=== PATIENT | male | born 1960 | race Caucasian/White ===

== ENCOUNTER 2019-05-11 18:12 | Inpatient (IN) ==
--- OUTSIDE RECORDS SUMMARY | 2019-05-11 20:03 | External Medical Summary | Continuity of Care Document ---
:1960 Author Name Armin Bowen, Provider Address Unavailable Unavailable , Care Team Providers Name Role Phone Amanda San M.D. Unavailable [email or web address] Unavailable Unavailable Problems Active medical history not documented Allergies and Adverse Reactions Allergy history not documented Medications Medications not documented Procedures Procedures not documented Immunizations Immunizations not documented Plan of Treatment Planned Observations Planned Goals not documented Results No Known Results Results not documented Encounters Appointment; Amanda San M.D. 29-Oct-2010 14:00 Encounter Diagnosis: Problem not documented
[2019-05-11] MEDS ORDERED: PROPOFOL IV EMULSION 10 MG/ML 100 ML VIAL IV ONE (20:07)
[2019-05-11] MEDS ORDERED: NOREPINEPHRINE BIT INJ 8 MG in DEXTROSE 5% 500 ML IV SCH (20:15)
[2019-05-11] MEDS ORDERED: ICU PROTOCOL FOR HYPERGLYCEMIA PRN (20:25)
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
[2019-05-11 21:20] LABS: Hematocrit (blood only) 28.5 % (42-52); Hemoglobin 8.6 g/dL (14.0-18.0); Mean Corpuscular Volume 75.8 fL (80-100); Mean Platelet Volume 10.6 fL (7.4-10.4); Platelet Count 250 K/uL (130-400); RDW Coefficient of Variation 18.3 % (11.5-14.5); RDW Standard Deviation 50.8 fL (36.4-46.3); Red Blood Count 3.76 M/uL (4.7-6.1); White Blood Count 28.06 K/uL (4.8-10.8)
--- NOTE | 2019-05-11 21:24 | XRay Report ---
XR chest 1V portable CLINICAL HISTORY: Respiratory failure COMPARISON STUDY: No previous studies for comparison. FINDINGS: The heart is enlarged with a globular silhouette. A pericardial effusion cannot be excluded . There is a nasogastric tube which passes into the stomach. There is an endotracheal to 59 mm above the lynne. There is radiographic evidence of mild pulmonary vascular congestion. There are small ple ural effusions. There is basilar atelectasis/consolidation.[There is nonspecific irregularity of the distal left clavicle, likely postsurgical or posttraumatic IMPRESSION: 1. Enlarged cardiac silhouette with small bilateral pleural effusions 2. Bilateral lower lobe atelectasis/consolidation 3. Mild pulmonary vascular congestion 4. Endotracheal tube 59 mm above the lynne. Nasogastric tube which passes into the stomach Electronically signed by: Paxton Aguila M.D. 05/11/2019 9:23 PM
[2019-05-11 21:31] LABS: INR 1.4 (0.9-1.1); Partial Thromboplastin Ratio 1.1; Partial Thromboplastin Time 28.8 Seconds (21.0-31.0); Prothrombin Time 14.3 Seconds (9.0-12.0)
[2019-05-11 21:37] LABS: Alanine Aminotransferase 21 U/L (12-78); Albumin Level 2.5 gm/dl (3.4-5.0); Aspartate Aminotransferase 31 U/L (15-37); BUN Creatinine Ratio 21.4 (10-20); Blood Urea Nitrogen 14 mg/dl (7-18); Carbon Dioxide 21 mmol/L (21-32); Chloride 107 mmol/L (98-107); Est GFR (African American) 126.8; Est GFR (Non-African American) 109.4; Glucose 101 mg/dl (70-99); Magnesium 1.8 mg/dl (1.8-2.4); Potassium 3.6 mmol/L (3.5-5.1); Sodium 139 mmol/L (136-145)
[2019-05-11 21:42] LABS: Albumin Globulin Ratio 0.7 (0.9-2); Alkaline Phosphatase 66 U/L (45-117); Bilirubin,Total 0.6 mg/dl (0.2-1); Creatine Kinase 98 U/L (39-308); Globulin 3.7 gm/dl (2.5-4.0); Phosphorus 3.5 mg/dl (2.5-4.9); Total Protein 6.2 gm/dl (6.4-8.2); Troponin I 0.039 ng/ml (0-0.045)
--- NOTE | 2019-05-11 22:03 | Procedure Note ---
Procedure Note Date of Service May 11, 2019 Procedure: Arterial Line Placement Attending: Dr. Cao APC: Rosalio Andrade PA-C Indication: Monitoring on Pressors Anesthesia: Lidocaine 1% Consent was signed and placed on the chart prior to procedure. Indication, risks, and benefits were explained at length. A time-out was completed verifying correct patient, procedure, site, positioning, and implant(s) or special equipment if applicable. Allens test was performed to ensure adequate perfusion. Patients RIGHT wrist was prepped and draped in the usual sterile fashion. Ultrasound guidance was used to aid needle placement. A 20g Arrow arterial line was introduced into the RIGHT Radial artery. Catheter was threaded, and the needle was removed with appropriate blood return. Good waveform was observed. The patient tolerated the procedure well. Confirmation of placement with ultrasound. Blood Loss: Minimal Complications: None Procedural Ultrasound Guidance: Procedure Date: 05/11/2019 Indication: Pressors, Frequent ABGs/Labs Attending: Dr. Cao APC: Rosalio Andrade PA-C Artery Identified: YES Line confirmed in Artery with ultrasound: YES Complications: NONE Patient tolerated procedure: WELL Coding CPT Codes Tubes, Drains, and Vasc Access - Tubes, Drains, and Vasc Access: Place Catheter In Artery ([id number])
[2019-05-11] MEDS ORDERED: PIPERACILLIN/TAZOBACTAM 4.5 GM in DEXTROSE 5% 100 ML IV ONE ×2 (22:13→23:30)
[2019-05-11] MEDS ORDERED: VANCOMYCIN CONSULT ACTIVE PRN (22:13)
[2019-05-11] MEDS ORDERED: ALBUT/IPRATROP 3MG/0.5MG NEB 3 ML VIAL NEB PRN (22:13)
[2019-05-11] MEDS ORDERED: PIPERACILL/TAZOBAC CONSULT ACTIVE PRN (22:13)
[2019-05-11] MEDS ORDERED: VANCOMYCIN HCL 1,000 MG in SODIUM CHLORIDE 0.9% 250 ML IV SCH (22:15)
[2019-05-11 22:21] LABS: Mean Corpuscular Hgb Conc 30.2 g/dL (32-36)
[2019-05-11] MEDS ORDERED: MULTI-VITAMIN INFUSION 10 ML, THIAMINE HCL 100 MG, FOLIC ACID 1 MG in SODIUM CHLORIDE 0... IV SCH (22:30)
[2019-05-11] MEDS ORDERED: VANCOMYCIN HCL 2,250 MG in SODIUM CHLORIDE 0.9% 500 ML IV ONE (22:30)
[2019-05-11 22:32] LABS: iSTAT Arterial Blood Gas HCO3 19 meg/L (19-24); iSTAT Arterial Blood Gas pCO2 35 mmHg (35-46); iSTAT Arterial Blood Gas pH 7.34 (7.35-7.45); iSTAT Carbon Dioxide 20 mEq/l (24-31); iSTAT FiO2 50 %; iSTAT Site Art Line
[2019-05-11 22:47] LABS: ALC (manual) 1.74 K/uL (1.2-3.4); Hypochromasia Present; Lymphocytes # (manual) 1.74 K/uL (1.2-3.4); Lymphocytes % (manual) 6.2 %; Metamyelocytes # (manual) 1.99 K/uL (0-0); Metamyelocytes % (manual) 7.1 %; Monocytes # (manual) 0.51 K/uL (0.11-0.59); Monocytes % (manual) 1.8 %; Neutrophils % (manual) 84.9 %; Polychromasia 1+
[2019-05-11 22:58] LABS: Appearance Urine Clear (Clear); Bacteria Urine Automated Negative (Negative); Bilirubin Urine Negative (Negative); Blood Urine 3+ (Negative); Color Urine Dark Yellow; Epithelial Cell Urine Auto >30 /lpf (0-5); Glucose Urine UA Negative (Negative); Ketones Urine Trace (Negative); Leukocyte Esterase Urine Trace (Negative); Nitrite Urine Negative (Negative); Protein Urine Trace (Negative); RBC Urine Automated >30 /hpf (0-4); Specific Gravity Urine 1.027 (1.000-1.030); Urobilinogen Urine Negative (Negative)
[2019-05-11] MEDS: THIAMINE HCL 100 MG in SYRINGE 9 ML IV SCH (23:26)
[2019-05-11] MEDS: methylPREDNISolone 60 MG in SYRINGE 0 ML IV SCH (23:26)
[2019-05-11] MEDS: NORMOSOL-R 1,000 ML IV SCH (23:27)
[2019-05-11] MEDS: fentaNYL citrate 100 MCG/2 ML VIAL IV PRN (23:28)
[2019-05-11] MEDS ORDERED: VANCOMYCIN HCL 2,000 MG in SODIUM CHLORIDE 0.9% 500 ML IV ONE (23:30)
[2019-05-11] MEDS: PROPOFOL 1,000 MG/100 ML VIAL IV PRN (23:33)
--- NOTE | 2019-05-11 23:34 | Procedure Note ---
Procedure Note Date of Service May 11, 2019 Procedure: Internal Jugular Central Line Placement Attending: Dr. Cao APC: Rosalio Andrade PA-C Indication: Central Drug Administration, Poor Venous Access, Multiple Lab Draws Necessary, etc. Anesthesia: Lidocaine 1% Consent was signed and placed on the chart prior to procedure. Indication, risks, and benefits were explained at length. A time-out was completed verifying correct patient, procedure, site, positioning, and implants(s) or special equipment if applicable. Patients RIGHT Neck was cleansed and draped in the typical sterile fashion using Chloraprep. The Internal Jugular Vein and Carotid Artery were identified using ultrasound. The superficial tissue was anesthetized using 3.0 mL of 1% lidocaine without epinephrine under direct visualization with the ultrasound. After adequate anesthetization was achieved, the Internal Jugular vein was cannulated under direct ultrasound guidance using an introducer needle on a syringe. Good venous blood return was maintained prior to removal of syringe from introducer needle. Using Seldinger Technique, a guide wire was advanced through the introducer needle without resistance. The introducer needle was removed and ultrasound images were obtained of the guide wire within the Internal Jugular Vein and saved to the patients medical record. A small incision was made in penetrating fashion at the guide wire insertion site utilizing an 11 blade scalpel. The dilator was advanced to the vessel without resistance. The dilator was exchanged for the triple lumen catheter which was advanced into the vessel without resistance. The guide wire was removed intact from the catheter without issue. Claves were placed on each catheter tip with confirmation of good blood flow from each lumen. Each port was easily flushed with sterile saline. The catheter was placed at 16 cm and sutured in place. BioPatch was applied to the catheter a nd a sterile Tegaderm dressing was applied over the catheter with careful attention to sterility. Patient tolerated procedure well. No immediate complications were met. Post procedure x-ray was completed, placement was appropriate and no pneumothorax was noted. Images obtained are saved for permanent record Procedural Ultrasound Guidance: Procedure Date: 05/11/2019 Indication: Pressors, Frequent Lab Draws, Poor IV Access Attending: Dr. Cao APC: Rosalio Andrade PA-C Artery AND Vein visualized: YES Compressible Vein: YES Guidewire or Short Catheter seen in vein prior to dilation: YES Line confirmed in Vein with ultrasound: YES Images obtained are saved for permanent record. Coding CPT Codes Tubes, Drains, and Vasc Access - Tubes, Drains, and Vasc Access: Insertion Of Non-tunneled Catheter Age 5 Yrs> ([id number]) Tubes, Drains, and Vasc Access - Tubes, Drains, and Vasc Access: Ultrasound Guidance For Vascular ([id number])
--- NOTE | 2019-05-11 23:47 | History & Physical Report ---
Date of Service May 11, 2019 Assessment & Plan (1) Admitted to intensive care unit: Patient is admitted to the intensive care unit after direct transfer from [facility] ED, where he was intubated and mechanically ventilated due to acute respiratory failure secondary to pneumonia both lower lobes and severe sepsis- We will do baseline studies: CBC with differential, chemistry profile, magnesium level, PT/INR/PTT, troponin, EKG, chest x-ray, ABG. Follow labs serially. Continue mechanical ventilation, with settings adjusted based on serial ABGs. Vancomycin IV and Zosyn IV per pharmacokinetic monitoring. Duonebs every 4 hours while awake and every 2 hours when necessary. Sputum Gram stain and culture. Solu-Medrol 60 mg IV every 6 hours. Consult correspondence specialist Dr. Cao Present on Admission?: Yes (2) Pneumonia of both lower lobes: See above Present on Admission?: Yes (3) Severe sepsis: See above Present on Admission?: Yes (4) CAD (coronary artery disease): CAD/H fibrillation/hypertension/placement last week of drug-eluting coronary stent in the mid LAD lesion- Records obtained from previous hospital. Consult cardiology. Present on Admission?: Yes (5) A-fib: See above. Present on Admission?: Yes (6) Status post insertion of drug eluting coronary artery stent: See above. Present on Admission?: Yes (7) Paraplegia: Continue supportive treatment. Present on Admission?: Yes (8) Lactic acidosis: Serial lactate levels Present on Admission?: Yes (9) Acute respiratory failure: As noted above. Present on Admission?: Yes History of Present Illness Chief Complaint: The patient was transferred from [facility] ED to [facility] ICU after requiring intubation and mechanical ventilation due to acute respiratory failure with hypoxia and hypercapnia. Primary Care Provider: Elver Saucedo The patient is a 58-year-old male with past medical history including paraplegia, history of CVA, atrial fibrillation, CAD, recent placement of drug- eluting stent into the LAD and recurrent UTI. He initially presented to [facility] ED and acute respiratory failure with hypoxia and hypercapnia, with intubated and mechanically ventilated, and then transferred to [facility] ICU for ongoing treatment. Prior to transfer he did receive IV vancomycin and IV Zosyn. Allergies Allergy/AdvReac Type Severity Reaction Status Date / Time No Known Allergies Allergy Unverified 05/11/19 22:09 Past Med/Surg History Social History Preferred Language: Welsh Communication Ability: Effective Communication Ability Comment: stutters after stroke [employer]per Required: No Beliefs That Will Affect Care: None Current Living Situation: Alone Current Living Situation Comment: [facility] Other Information That Helps Us Care for You: Yes (health aides total 5 hrs/day - 5 days/week) Feels Safe at Home: Yes Safety Concerns: Feels Safe At This Time Smoking Status: Never smoker Hx Alcohol Use: Yes Alcohol type: beer Hx Substance Use: Yes substance use type: marijuana Last Used Substance Other:: unknown by family Review of Systems Review of Systems: Unable to be performed due to sedated and intubated state. Physical Exam Physical Exam: The patient is sedated, intubated and mechanically ventilated, normocephalic and atraumatic. HEENT--PERRL, mucous membranes and oropharynx dry. Neck-- No JVD. No bruits. Thyroid normal, trachea midline, no adenopathy. Heart--normal S1 and S2. No murmurs, rubs or gallops. Lungs--coarse breath sounds bilaterally. Abdomen--normal bowel sounds and soft. Nontender. Nondistended. Extremities--no cyanosis or clubbing. No edema. There are good distal pulses b/l. Dermatologic--normal skin turgor, normal color, no abnormal lymph nodes, no rash. Neurologic--cranial nerves II through XII grossly intact. Rheumatologic--limited exam due to sedation and intubation Psychiatric--sedated and intubated Results & Data Vital Signs (Past 12 Hours) Vital Signs Temp Pulse Pulse Resp BP BP Pulse Ox 05/11/19 22:11 92 H 16 95 05/11/19 21:15 85 83/49 L 98 05/11/19 21:11 67 05/11/19 21:09 99.9 F H 83 16 84/49 L 95 05/11/19 21:01 82 98 05/11/19 21:00 82 81/50 L 98 05/11/19 20:48 91 H 16 94 05/11/19 20:46 83 97 05/11/19 20:45 83 80/50 L 97 05/11/19 20:31 88 95 05/11/19 20:30 88 84/49 L 95 05/11/19 20:26 90 90/61 L 96 05/11/19 20:15 93 H 96 05/11/19 20:05 90 90 05/11/19 20:03 86 19 94/50 L 90 Pulse Ox 05/11/19 22:11 05/11/19 21:15 05/11/19 21:11 05/11/19 21:09 05/11/19 21:01 05/11/19 21:00 05/11/19 20:48 05/11/19 20:46 05/11/19 20:45 05/11/19 20:31 98 05/11/19 20:30 05/11/19 20:26 05/11/19 20:15 05/11/19 20:05 05/11/19 20:03 Laboratory Results Laboratory Results WBC 23.88 K/uL (4.8-10.8) H 05/12/19 04:01 RBC 3.86 M/uL (4.7-6.1) L 05/12/19 04:01 Hgb 8.9 g/dL (14.0-18.0) L 05/12/19 04:01 Hct 28.9 % (42-52) L 05/12/19 04:01 MCV 74.9 fL (80-100) L 05/12/19 04:01 MCH 23.1 pg (25-34) L 05/12/19 04:01 MCHC 30.8 g/dL (32-36) L 05/12/19 04:01 RDW Std Deviation 50.0 fL (36.4-46.3) H 05/12/19 04:01 RDW Coeff of Jennifer 18.3 % (11.5-14.5) H 05/12/19 04:01 Plt Count 196 K/uL (130-400) 05/12/19 04:01 MPV 10.5 fL (7.4-10.4) H 05/12/19 04:01 Neutrophils % (Manual) 84.9 % 05/11/19 21:08 Lymphocytes % (Manual) 6.2 % 05/11/19 21:08 Monocytes % (Manual) 1.8 % 05/11/19 21:08 Metamyelocytes % (Man) 7.1 % 05/11/19 21:08 Neutrophils # (Manual) 23.82 K/uL (1.4-6.5) H 05/11/19 21:08 Total Absolute Neuts 23.82 K/uL (1.4-6.5) H 05/11/19 21:08 Lymphocytes # (Manual) 1.74 K/uL (1.2-3.4) 05/11/19 21:08 Total Abs Lymphocytes 1.74 K/uL (1.2-3.4) 05/11/19 21:08 Monocytes # (Manual) 0.51 K/uL (0.11-0.59) 05/11/19 21:08 Metamyelocytes # (Man) 1.99 K/uL (0-0) H 05/11/19 21:08 Polychromasia 1+ 05/11/19 21:08 Hypochromasia Present 05/11/19 21:08 PT 14.8 Seconds (9.0-12.0) H 05/12/19 04:01 INR 1.5 (0.9-1.1) H 05/12/19 04:01 APTT 35.9 Seconds (21.0-31.0) H 05/12/19 04:01 PTT Ratio 1.3 05/12/19 04:01 Sample Site Art Line 05/11/19 22:17 POC pH 7.34 (7.35-7.45) L 05/11/19 22:17 POC pCO2 35 mmHg (35-46) 05/11/19 22:17 POC pO2 82 mmHg (80-95) 05/11/19 22:17 POC HCO3 19 sam/L (19-24) 05/11/19 22:17 POC Total CO2 20 mEq/l (24-31) L 05/11/19 22:17 POC Base Excess -6.0 sam/L (-9-1.8) 05/11/19 22:17 POC ABG O2 Sat 95.0 % (90-95) 05/11/19 22:17 Héctor Test NA 05/11/19 22:17 O2 Delivery Device Ventilator 05/11/19 22:17 POC O2 Rate 12 05/11/19 22:17 Minute Ventilation 9.5 05/11/19 22:17 POC FiO2 50 % 05/11/19 22:17 Tidal Volume 600 05/11/19 22:17 PEEP 5 05/11/19 22:17 Sodium 139 mmol/L (136-145) 05/11/19 21:08 Potassium 3.6 mmol/L (3.5-5.1) 05/11/19 21:08 Chloride 107 mmol/L (98-107) 05/11/19 21:08 Carbon Dioxide 21 mmol/L (21-32) 05/11/19 21:08 Anion Gap 11.0 (3-11) 05/11/19 21:08 BUN 14 mg/dl (7-18) 05/11/19 21:08 Creatinine 0.63 mg/dl (0.6-1.4) 05/11/19 21:08 Est Cr Clr Drug Dosing Not Reportable 05/11/19 21:08 Est GFR ( Amer) 126.8 05/11/19 21:08 Est GFR (Non-Af Amer) 109.4 05/11/19 21:08 BUN/Creatinine Ratio 21.4 (10-20) H 05/11/19 21:08 Glucose 101 mg/dl (70-99) H 05/11/19 21:08 POC Glucose 100 (70-99) H 05/12/19 01:28 Lactate 3.5 mmol/L (0.4-2.0) H* 05/11/19 21:23 Calcium 8.0 mg/dl (8.5-10.1) L 05/11/19 21:08 Ionized Calcium 1.07 mmol/L (1.12-1.32) L 05/11/19 21:08 Phosphorus 3.5 mg/dl (2.5-4.9) 05/11/19 21:08 Magnesium 1.8 mg/dl (1.8-2.4) 05/11/19 21:08 Total Bilirubin 0.6 mg/dl (0.2-1) 05/11/19 21:08 AST 31 U/L (15-37) 05/11/19 21:08 ALT 21 U/L (12-78) 05/11/19 21:08 Alkaline Phosphatase 66 U/L (45-117) 05/11/19 21:08 Total Creatine Kinase 98 U/L (39-308) 05/11/19 21:08 Troponin I Cancelled 05/12/19 04:01 Total Protein 6.2 gm/dl (6.4-8.2) L 05/11/19 21:08 Albumin 2.5 gm/dl (3.4-5.0) L 05/11/19 21:08 Globulin 3.7 gm/dl (2.5-4.0) 05/11/19 21:08 Albumin/Globulin Ratio 0.7 (0.9-2) L 05/11/19 21:08 Folate 11.32 ng/ml (>5.38) 05/11/19 22:34 Procalcitonin 24.73 ng/ml (0-0.5) H 05/11/19 22:34 Random Cortisol 30.09 mcg/dl 05/11/19 21:08 Urine Color Dark Yellow 05/11/19 22:30 Urine Appearance Clear (Clear) 05/11/19 22:30 Urine pH 5.0 (4.5-7.5) 05/11/19 22:30 Ur Specific [place] 1.027 (1.000-1.030) 05/11/19 22:30 Urine Protein Trace (Negative) H 05/11/19 22:30 Urine Glucose (UA) Negative (Negative) 05/11/19 22:30 Urine Ketones Trace (Negative) H 05/11/19 22:30 Urine Blood 3+ (Negative) H 05/11/19 22:30 Urine Nitrite Negative (Negative) 05/11/19 22:30 Urine Bilirubin Negative (Negative) 05/11/19 22:30 Urine Urobilinogen Negative (Negative) 05/11/19 22:30 Ur Leukocyte Esterase Trace (Negative) H 05/11/19 22:30 Urine WBC (Auto) 10-30 /hpf (0-5) H 05/11/19 22:30 Urine RBC (Auto) >30 /hpf (0-4) H 05/11/19 22:30 U Hyaline Cast (Auto) 5-10 /lpf (0-5) H 05/11/19 22:30 U Epithel Cells (Auto) >30 /lpf (0-5) H 05/11/19 22:30 Urine Bacteria (Auto) Negative (Negative) 05/11/19 22:30 Ur Renal Epithelial Cell Not Reportable 05/11/19 22:30 Nasal Screen MRSA (PCR) Positive (Negative) A 05/11/19 20:15 Diagnostic Findings [facility] Patient: MANUEL MCKEON (Male) Age: 58 MR #: [id number] Status: IP Date: 05/12/19 02:01 Slices: 40 History: f/u from CT for ? cholecystitis Priors: Tech: Dharmesh Tyrone @ [phone] Exams: US ABDOMEN LIMITED Accession Numbers: [id number] Preliminary Findings Only See Final Report For Complete Findings US ABDOMEN LIMITED: The gallbladder is distended containing multiple gallstones with pericholecystic fluid which is concerning for acute cholecystitis in the correct clinical setting. No biliary dilatation. Radiologist: Keyana Wallace MD Study ready at 02:06 and initial results transmitted at 02:42 *This report constitutes a preliminary interpretation only. Non-acute findings felt to be unrelated to the clinical presentation may not be discussed in this report. The study will be interpreted and a final report will be generated by the local Radiologist the following shift. To reach the hospital radiology department call [phone]. If a discrepancy is found between the preliminary and final interpretations of this study, please notify us via our Client Portal at [email or web address], [email or web address]. You can also fax this report with a description of the discrepancy, or include the final report, to our daytime fax number [phone]. If faxing, please indicate the severity of discrepancy using one of the following categories: [ ] 1 - Agree/Informational [ ] 2 - Unlikely to Affect Management [ ] 3 - Possible Eventual Change of Management [ ] 4 - Probable Immediate Change of Management For all other patient related information, please fax us at [phone]. [facility] Patient: MANUEL MCKEON (Male) Age: 58 MR #: [id number] Status: ER Date: 05/12/19 00:16 Slices: 1322 History: sob, r/o pe, abd pain, sepsis, best images, pt intubated Priors: Tech: Amanda Valle @ [phone] Exams: CTA CHEST, CT ABDOMEN & PELVIS With Contrast Contrast: IV Amt: 120 cc's Accession Numbers: [id number], [id number] Preliminary Findings Only See Final Report For Complete Findings CTA CHEST: The endotracheal tube is in satisfactory position above the lynne. No aortic dissection or aneurysm. Cardiomegaly. Diffuse coronary artery calcifications. Enlargement of the pulmonary arteries which is probably related to pulmonary arterial hypertension. No evidence of pulmonary emboli. Incidental note is made of anomalous pulmonary venous return which drains the left upper lobe into the left brachiocephalic vein. Small bilateral pleural effusions. Large consolidations in the bilateral lower lobes could represent pneumonia or compressive atelectasis. Old fractures of the bilateral clavicles and bilateral ribs. Old compression fracture of T11. CT ABDOMEN & PELVIS With Contrast: The enteric tube is in the distal stomach. The gallbladder is distended with multiple gallstones with mild gallbladder wall thickening and adjacent edema which could represent acute cholecystitis. Recommend correlation with ultrasound or HIDA. Tip of Pinedo catheter is in the bladder. Circumferential wall thickening of the bladder could represent cystitis. Correlation urinalysis. Gas in the bladder is probably due to Pinedo placement. Rectal tube is present. Moderate stool throughout the colon. No bowel wall thickening or obstruction. Normal appendix. Small fat-containing left inguinal hernia. Moderate atherosclerosis. Radiologist: Keyana Wallace MD Study ready at 00:25 and initial results transmitted at 00:57 Results also transmitted to [facility] ICU @ [phone] (Fax) *This report constitutes a preliminary interpretation only. Non-acute findings felt to be unrelated to the clinical presentation may not be discussed in this report. The study will be interpreted and a final report will be generated by the local Radiologist the following shift. To reach the hospital radiology department call [phone]. If a discrepancy is found between the preliminary and final interpretations of this study, please notify us via our Client Portal at [email or web address], [email or web address]. You can also fax this report with a description of the discrepancy, or include the final report, to our daytime fax number [phone]. If faxing, please indicate the severity of discrepancy using one of the following categories: [ ] 1 - Agree/Informational [ ] 2 - Unlikely to Affect Management [ ] 3 - Possible Eventual Change of Management [ ] 4 - Probable Immediate Change of Management For all other patient related information, please fax us at [phone]. Code Status & VTE Plan Code Status Full code VTE Prophylaxis Plan VTE Prophylaxis will be ordered: Yes Critical Care Time Critical Care Time: Yes Total Critical Care Time: 45 Total critical care time was 45 minutes PG Care Time/CCT Total # of Minutes Spent Total Time Spent with Patient: Total time spent is greater than 50% in coordination of care (as documented) at patient's floor/unit and/or counseling patient: Critical Care Time: Yes Total Critical Care Time: 45
[2019-05-12] MEDS ORDERED: OPTIRAY 320 125ml IV PRN (00:19)
[2019-05-12] MEDS: FAMOTIDINE 20 MG in SYRINGE 3 ML IV SCH ×2 (01:28→12:56)
[2019-05-12] MEDS: ACETAMINOPHEN 1,000 MG/100 ML VIAL IV PRN (01:28)
[2019-05-12] MEDS ORDERED: SENNA 8.6 MG TAB PO PRN (02:01)
[2019-05-12] MEDS ORDERED: PIPERACILLIN/TAZOBACTAM 3.375 GM in DEXTROSE 5% 100 ML IV SCH (04:00)
[2019-05-12 04:16] LABS: Hematocrit (blood only) 28.9 % (42-52); Hemoglobin 8.9 g/dL (14.0-18.0); Mean Corpuscular Hgb Conc 30.8 g/dL (32-36); Mean Corpuscular Volume 74.9 fL (80-100); Mean Platelet Volume 10.5 fL (7.4-10.4); Platelet Count 196 K/uL (130-400); RDW Coefficient of Variation 18.3 % (11.5-14.5); Red Blood Count 3.86 M/uL (4.7-6.1); White Blood Count 23.88 K/uL (4.8-10.8)
[2019-05-12 04:26] LABS: INR 1.5 (0.9-1.1); Partial Thromboplastin Ratio 1.3; Partial Thromboplastin Time 35.9 Seconds (21.0-31.0); Prothrombin Time 14.8 Seconds (9.0-12.0)
[2019-05-12 04:35] LABS: Albumin Level 2.4 gm/dl (3.4-5.0); Calcium 7.6 mg/dl (8.5-10.1); Creatinine Clr Calc Pharmacy 223.4 ml/min; Est GFR (African American) 148.3; Potassium 3.7 mmol/L (3.5-5.1)
[2019-05-12] MEDS: PROPOFOL 1,000 MG/100 ML VIAL IV PRN ×5 (04:45→22:44)
[2019-05-12 04:47] LABS: Bilirubin Direct 0.3 mg/dl (0-0.2); Bilirubin,Total 0.6 mg/dl (0.2-1); Phosphorus 2.7 mg/dl (2.5-4.9); Troponin I 0.037 ng/ml (0-0.045)
[2019-05-12 04:49] LABS: Anisocytosis Present; Basophils # (auto) 0.04 K/uL (0-0.2); Basophils % (auto) 0.2 %; Dohle Bodies 1+; Eosinophils # (auto) 0.01 K/uL (0-0.5); Hypochromasia Present; Immature Granulocytes % (auto) 5.9 %; Lymphocytes # (auto) 0.77 K/uL (1.2-3.4); Lymphocytes % (auto) 3.2 %; Monocytes # (auto) 1.36 K/uL (0.11-0.59); Monocytes % (auto) 5.7 %; Polychromasia 1+; Toxic Vacuolation 1+
[2019-05-12 04:52] LABS: iSTAT Arterial Blood Gas HCO3 21 meg/L (19-24); iSTAT Arterial Blood Gas pCO2 41 mmHg (35-46); iSTAT Arterial Blood Gas pH 7.32 (7.35-7.45); iSTAT Carbon Dioxide 22 mEq/l (24-31); iSTAT FiO2 50 %; iSTAT Site Art Line
[2019-05-12] MEDS ORDERED: CALCIUM GLUCONATE 10% 1,000 MG in SODIUM CHLORIDE 0.9% 50 ML IV STA (05:01)
[2019-05-12] MEDS: methylPREDNISolone 60 MG in SYRINGE 0 ML IV SCH (05:34)
[2019-05-12] MEDS: NOREPINEPHRINE BIT INJ 8 MG in DEXTROSE 5% 500 ML IV PRN ×2 (06:17→10:27)
--- NOTE | 2019-05-12 07:06 | XRay Report ---
SINGLE VIEW CHEST CLINICAL HISTORY: Status post central venous catheter placement. FINDINGS: An AP, portable, upright chest radiograph is compared to study performed earlier the same d ay 05/11/2019. The examination is significantly degraded by portable technique and patient rotation. E ndotracheal and enteric tubes are unchanged in position. A right internal jugular central venous cath eter has been placed. The tip of the catheter projects over the SVC. The heart is enlarged. There is pulmonary vascular congestion. There are layering pleural effusions with bibasilar consolidation. No pneumothorax is seen. The skeletal structures are osteopenic. There are healed bilateral rib fracture s. IMPRESSION: 1. A right internal jugular central venous catheter has been placed as above. No pneumothorax is iden tified post procedure. 2. The remaining lines and tubes are unchanged in position. 3. Cardiomegaly with evidence of congestive failure. 4. Small pleural effusions with bibasilar consolidation. Electronically signed by: David Olivas M.D. 05/12/2019 7:05 AM
[2019-05-12] MEDS ORDERED: FERROUS SULFATE 325 MG/7.4 ML UDP PO SCH (08:00)
[2019-05-12] MEDS ORDERED: FERROUS SULFATE 325 MG TAB PO SCH (08:00)
--- NOTE | 2019-05-12 08:22 | CT Scan Report ---
CT ANGIOGRAM OF THE CHEST; CT SCAN OF THE ABDOMEN AND PELVIS WITH IV CONTRAST CLINICAL HISTORY: Sepsis. Generalized abdominal pain. COMPARISON STUDY: Chest x-ray dated 05/11/2019. TECHNIQUE: Following the IV administration of 120 of Optiray 320, CT angiogram of the chest is perfor med from the upper abdomen to the thoracic inlet utilizing the pulmonary embolus protocol. Images are reviewed in the axial, sagittal, coronal planes. 3-D MIPS images are created and assessed. Subsequen tly, CT scan of the abdomen and pelvis was performed from the lung bases to the proximal femora. Imag es are reviewed in the axial, sagittal, and coronal planes. IV contrast was administered without comp lication. A dose lowering technique was utilized adhering to the principles of ALARA. The examination is compromised by motion artifact, as well as by streak artifact from the arms which could not be el evated above the chest or abdomen. CT DOSE: 2380.51 mGy.cm FINDINGS: CHEST: Thyroid: Imaged portions of the thyroid gland are normal in size and attenuation. Thoracic aorta: The thoracic aorta is normal in caliber and demonstrates standard 3-vessel arch anato my. No dissection is seen. Pulmonary vasculature: The pulmonary trunk is dilated, measuring 4.3 cm in diameter. This suggests pu lmonary artery hypertension. There are no filling defects identified in the main, lobar, or segmental pulmonary arteries to indicate pulmonary embolus. There is partial anomalous pulmonary venous return . The left upper lobe branch drains into the left innominate vein. Heart: A right internal jugular central venous catheter is in place. The heart is enlarged and withou t pericardial effusion. The coronary arteries are densely calcified. Lungs and pleural spaces: Evaluation of the lung parenchyma is degraded by motion artifact. An endotr acheal tube terminates above the lynne. Secretions are noted within the distal trachea and the ro tem bronchi. There are small pleural effusions with dense bibasilar airspace consolidation. Partially loculated fluid tracks towards the right apex. Pleural calcifications are noted at the right lung ba se. Mediastinum: There is no mediastinal lymphadenopathy. Kalee: Prominent hilar nodes measure up to 9 mm in short axis. Axillae: There is no axillary lymphadenopathy. Bony thorax: The skeletal structures are osteopenic. There are healed bilateral rib fractures. There are age indeterminant compression deformities of T3, T4, T5, T6, T7, T8, and T11. There is chronic po sttraumatic deformity of both clavicles. Advanced degenerative change is seen in the shoulders. No ly tic or blastic lesions are identified. ABDOMEN AND PELVIS: Liver: The contrast-enhanced liver is enlarged, measuring 23.6 cm in length. The liver is otherwise n ormal in contour and attenuation. There is no intrahepatic or ductal dilatation. The hepatic veins an d portal veins are patent. Gallbladder: The gallbladder is distended and filled with numerous gallstones. There is mild pericho lecystic fluid. Spleen: The spleen is top normal in size and normal in attenuation. There are small calcified splenic granulomas. Pancreas: Mildly atrophic and grossly unremarkable. Adrenal glands: Adrenal glands appear hyperemic. Kidneys: The contrast enhanced kidneys are normal in size and without hydronephrosis. The kidneys enh ance symmetrically. Abdominal vasculature: The abdominal aorta is normal in course and caliber noting moderate to advance d atherosclerotic calcification. Stomach and bowel: An enteric tube terminates in the distal stomach. There is rectosigmoid fecal impa ction and moderate constipation. No bowel obstruction is seen. There is laxity of the ventral abdomin al wall with protrusion of abdominal contents. The appendix is well-visualized and normal. A rectal temperature probe is in place. Peritoneum: There is no intraperitoneal free air or abdominal ascites. There is asymmetric atrophy of the right rectus musculature. Lymphadenopathy: None. Pelvic viscera: The bladder wall is markedly thickened and heterogeneous. Intraluminal gas is noted. A Pinedo catheter is in place. A large right inguinal hernia contains a segment of the bladder. There is a smaller fat-containing inguinal hernia on the left. The prostate is normal as imaged. Skeletal structures: The skeletal structures are osteopenic. No lytic or blastic lesions are seen. Th ere is chronic posttraumatic deformity of the left acetabulum. An electronic device is present within the left anterior abdominal wall. An intrathecal catheter enters the central canal in the lumbar reg ion. IMPRESSION: 1. Streak and motion compromised examination. 2. There is no evidence of pulmonary embolus in the main, lobar, or segmental pulmonary arteries. 3. There are small pleural effusions with dense bibasilar consolidation. Correlate clinically for joshua dence of pneumonia/aspiration pneumonitis. Radiographic follow-up to resolution is recommended. 4. Marked cardiomegaly with evidence of pulmonary artery hypertension. 5. Pleural calcification at the right lung base is likely related to remote trauma given the presence of overlying rib fractures. Clinical correlation will be required. 6. Distended gallbladder with cholelithiasis and pedicles cystic fluid. Cholecystitis is not excluded . Consider ultrasound and/or nuclear hepatobiliary scan for further assessment. 7. The bladder wall is markedly thickened and heterogeneous. There is intraluminal gas, and a Pinedo c atheter in place. Correlate clinically and urinalysis for evidence of cystitis. The bladder wall thic kening may be chronic and related to a neurogenic bladder. Bladder neoplasm would be impossible to ex clude. Nonemergent follow-up with urology is recommended. 8. There are right larger than left inguinal hernias. The right inguinal hernia contains a large segm ent of the bladder. 9. There is rectosigmoid fecal impaction and moderate constipation. No bowel obstruction is seen. 10. Hepatomegaly. 11. There are numerous healed fractures involving bilateral ribs, both clavicles, and the left acetab ulum. There are numerous and age indeterminant thoracic compression deformities which are also likely chronic. 12. Numerous lines and tubes as detailed above. 13. There is partial anomalous pulmonary venous return. The left upper lobe pulmonary vein drains int o the left innominate vein. 14. Additional findings as above. Electronically signed by: David Olivas M.D. 05/12/2019 8:19 AM
[2019-05-12] MEDS ORDERED: Nursing to Pharmacy Communication ONE (08:52)
[2019-05-12] MEDS ORDERED: PANTOprazole 40 MG TAB PO SCH (09:00)
[2019-05-12] MEDS ORDERED: GABAPENTIN 800 MG TAB PO SCH (09:00)
[2019-05-12] MEDS ORDERED: dilTIAZem ER 120 MG CAPCR PO SCH (09:00)
[2019-05-12] MEDS ORDERED: ASPIRIN 81 MG CHEW PO SCH (09:00)
[2019-05-12] MEDS ORDERED: ASCORBIC ACID 500 MG TAB PO SCH (09:00)
[2019-05-12] MEDS ORDERED: ESCITALOPRAM OXALATE 20 MG TAB PO SCH (09:00)
[2019-05-12] MEDS ORDERED: ASPIRIN 81 MG ECTAB PO SCH (09:00)
[2019-05-12] MEDS ORDERED: TICAGRELOR 90 MG TAB PO SCH (09:00)
--- NOTE | 2019-05-12 09:07 | Ultrasound Report ---
ULTRASOUND RIGHT UPPER QUADRANT ABDOMEN CLINICAL HISTORY: Cholelithiasis and abnormal gallbladder seen by CT. COMPARISON STUDY: Abdominal CT performed the same day 05/12/2019. TECHNIQUE: Real-time, grayscale, and color flow sonography of the right upper quadrant of the abdomen was performed. Images are reviewed in the transverse and longitudinal planes. FINDINGS: Liver: The liver is enlarged and demonstrates heterogeneously increased echotexture suggesting hepati c steatosis. There is no intrahepatic biliary ductal dilatation. The main portal vein is patent. Gallbladder: The gallbladder is distended and filled with numerous shadowing calcified gallstones. Pe richolecystic fluid is noted. A sonographic Brunner's sign could not be assessed. There is no gallblad rosetta wall thickening. The common bile duct measures up to 0.4 cm in diameter. Pancreas: Visualized portions of the pancreatic head and body are normal in appearance. The splenic v ein is patent. Right kidney: Survey images of the right kidney demonstrate normal size and echotexture. There is no hydronephrosis. Ascites: There is trace perihepatic ascites. IMPRESSION: 1. The gallbladder is distended and filled with numerous shadowing gallstones. There is no gallbladde r wall thickening. Pericholecystic fluid is observed. Findings are equivocal for acute cholecystitis which is not excluded. Consider nuclear hepatobiliary scan for further assessment and to assess paten cy of the cystic duct. 2. There is no intra or extrahepatic biliary ductal dilatation. 3. There is trace perihepatic ascites. 4. Hepatomegaly and hepatic steatosis. Electronically signed by: David Olivas M.D. 05/12/2019 9:06 AM
[2019-05-12] MEDS ORDERED: SENNA 8.8 MG/5 ML UDP NG PRN (09:28)
[2019-05-12] MEDS ORDERED: PNEUMOCOCCAL POLYSACCHARIDES 25 MCG/0.5 ML VIAL/SYR IM ONE (10:00)
[2019-05-12] MEDS ORDERED: PNEUMOCOCCAL ADMINISTRATION CHARGE ONE (10:00)
--- NOTE | 2019-05-12 10:14 | XRay Report ---
SINGLE VIEW CHEST CLINICAL HISTORY: Respiratory failure. FINDINGS: An AP, portable, upright chest radiograph is compared to study dated 05/11/2019 and correlat ed with chest CT performed the same day 05/12/2019. The examination is significantly degraded by aneesh ble technique and patient rotation. An endotracheal tube, an enteric tube, and a right internal jugul ar central venous catheter are unchanged in position. The heart is enlarged. There is pulmonary vascu lar congestion. There are layering pleural effusions with bibasilar consolidation. No pneumothorax is seen. The skeletal structures are osteopenic. There are healed bilateral rib fractures. IMPRESSION: 1. Stable lines and tubes. 2. Cardiomegaly with pulmonary vascular congestion. This appears modestly increased from yesterday. 3. Small pleural effusions with bibasilar consolidation, unchanged from previous. Electronically signed by: David Olivas M.D. 05/12/2019 10:13 AM
[2019-05-12] MEDS: ASPIRIN 81 MG CHEW NG SCH (10:26)
[2019-05-12] MEDS: FOLIC ACID 1 MG in SYRINGE 9.8 ML IV SCH (10:26)
[2019-05-12] MEDS: ASCORBIC ACID 500 MG TAB NG SCH ×2 (10:26→20:59)
[2019-05-12] MEDS: FERROUS SULFATE 325 MG/7.4 ML UDP NG SCH ×2 (10:26→16:55)
[2019-05-12] MEDS: VANCOMYCIN HCL 1,250 MG in SODIUM CHLORIDE 0.9% 250 ML IV SCH ×3 (10:27→23:41)
[2019-05-12] MEDS: NORMOSOL-R 1,000 ML IV SCH ×3 (10:27→23:41)
[2019-05-12] MEDS: HEPARIN SOD 5,000 UNIT/0.5 ML VIAL SQ SCH ×2 (10:27→21:00)
[2019-05-12] MEDS: GABAPENTIN 250 MG/5 ML 470 ML BTL PO SCH ×3 (10:27→20:57)
[2019-05-12] MEDS: THIAMINE HCL 100 MG in SYRINGE 9 ML IV SCH (10:27)
[2019-05-12] MEDS: TICAGRELOR 90 MG TAB PO SCH ×2 (10:28→21:14)
--- NOTE | 2019-05-12 12:13 | Family Medicine Progress Note ---
Date of Service May 12, 2019 Assessment & Plan (1) Severe sepsis: Admitted to the ICU as a direct transfer from [facility], at [facility] he was intubated and mechanically ventilated due to acute hypoxic respiratory failure secondary to bilateral lower lobe pneumonia with severe sepsis. CT scan demonstrates cardiomegaly with evidence of pulmonary artery hypertension, distended gallbladder with cholelithiasis intraluminal gas of the bladder wall right and left inguinal hernias rectosigmoid fecal impaction hepatomegaly. Ultrasounds of the gallbladder demonstrated distention and filled with numerous gallstones negative for wall thickening pericholecystic fluid observed. #Bilateral lower lobe pneumonia Previously diagnosed at [facility] with associated severe sepsis.Chest x-ray demonstrates small pleural effusions with bibasilar consolidation ET tube in place. WBC is elevated to 23.88 today Procalcitonin 18.62.Cultures obtained and pending -Continue Vanco Zosyn management per ICU -Given Pneumovax -Methylprednisolone 40 mg IV every 12 hours -Wean sedation as tolerated -Follow-up cultures -Follow labs serially #Acute hypoxic respiratory failure See above #Admitted to the ICU ICU staff managing sepsis and stabilizing patient while intubated #CAD Patient had stent placed last week in the mid LAD -Continue dual antiplatelet therapy unless otherwise specified by ICU #A. fib Holding home diltiazem given ICU status FENa: N.p.o. Code Status: Full code DVT PPX: Heparin Dispo: ICU Supervising Physician Co-Signing Physician Notes I personally examined the patient and verified all rodriguez points of history and exam, discussed case, and agree with decision making with Dr Arriola no HPI or ROS obtainable. intubated, sedated. d/w ICU, input appreciated vitals noted, intubated, sedated, nad. breathing even and unlabored on vent. no asymmetry or focal neuro deficits at rest. skin no rashes no pallor or icterus sepsis/septic shock/acute respiratory failure requiring mechanical ventilation - due to pneumonia. continue current abx/supportive care. otherwise as above, as per ICU Subjective Patient intubated on ventilator, no acute concerns per nursing, patient did not wake during exam. Physical Exam Physical Exam: General: Patient sedated, intubated, and mechanically ventilated HEENT: Normocephalic atraumatic Neck: Negative JVD negative bruit trachea midline negative adenopathy Cardiac: Regular rate and rhythm I did not appreciate any murmurs rubs or gallops normal S1 normal S2 good capillary refill negative pedal edema Respiratory: Coarse breath sounds bilaterally GI: Normal bowel sounds, soft, nontender nondistended MSK: Good pulses pulses bilaterally Skin: No new rashes, normal turgor Neuro: Sedated and intubated Results & Data Vital Signs (Past 12 Hours) Vital Signs Pulse Resp BP Pulse Ox 05/12/19 11:40 77 112/55 L 05/12/19 11:30 76 97 05/12/19 11:01 78 98 05/12/19 10:31 80 99 05/12/19 10:01 82 98 05/12/19 10:00 80 116/71 98 05/12/19 09:31 83 98 05/12/19 09:03 77 21 99 05/12/19 09:01 80 99 05/12/19 09:00 81 128/78 98 05/12/19 08:40 80 128/76 98 05/12/19 08:30 81 98 05/12/19 08:01 82 97 05/12/19 08:00 82 128/76 98 05/12/19 07:30 84 99 05/12/19 07:00 79 115/71 99 05/12/19 06:45 80 99 05/12/19 06:00 80 130/77 98 05/12/19 05:59 78 21 100 05/12/19 05:00 80 16 110/68 98 05/12/19 04:09 77 13 100 05/12/19 04:01 78 100 05/12/19 04:00 78 111/65 100 05/12/19 03:01 82 100 05/12/19 03:00 82 118/70 100 05/12/19 02:01 83 100 05/12/19 02:00 83 103/60 100 05/12/19 01:01 91 H 97 05/12/19 01:00 92 H 106/62 97 05/12/19 00:36 92 H 18 96 Laboratory Results 05/12/19 05/12/19 05/12/19 Range/Units 04:37 04:03 04:01 WBC (4.8-10.8) K/uL RBC (4.7-6.1) M/uL Hgb (14.0-18.0) g/dL Hct (42-52) % MCV (80-100) fL MCH (25-34) pg MCHC (32-36) g/dL RDW Std Deviation (36.4-46.3) fL RDW Coeff of Jennifer (11.5-14.5) % Plt Count (130-400) K/uL MPV (7.4-10.4) fL Immature Gran % (Auto) % Neut % (Auto) % Lymph % (Auto) % [place] % (Auto) % Eos % (Auto) % Baso % (Auto) % Immature Gran # (Auto) (0.00-0.02) K/uL Neut # (Auto) (1.4-6.5) K/uL Lymph # (Auto) (1.2-3.4) K/uL [place] # (Auto) (0.11-0.59) K/uL Eos # (Auto) (0-0.5) K/uL Baso # (Auto) (0-0.2) K/uL Neutrophils % (Manual) % Lymphocytes % (Manual) % Monocytes % (Manual) % Metamyelocytes % (Man) % Neutrophils # (Manual) (1.4-6.5) K/uL Total Absolute Neuts (1.4-6.5) K/uL Lymphocytes # (Manual) (1.2-3.4) K/uL Total Abs Lymphocytes (1.2-3.4) K/uL Monocytes # (Manual) (0.11-0.59) K/uL Metamyelocytes # (Man) (0-0) K/uL Toxic Vacuolation Dohle Bodies Polychromasia Hypochromasia Anisocytosis PT (9.0-12.0) Seconds INR (0.9-1.1) APTT (21.0-31.0) Seconds PTT Ratio Sample Site Art Line POC pH 7.32 L (7.35-7.45) POC pCO2 41 (35-46) mmHg POC pO2 143 H (80-95) mmHg POC HCO3 21 (19-24) sam/L POC Total CO2 22 L (24-31) mEq/l POC Base Excess -5.0 (-9-1.8) sam/L POC ABG O2 Sat 99.0 H (90-95) % Héctor Test NA O2 Delivery Device Ventilator POC O2 Rate 12 Minute Ventilation 8.4 POC FiO2 50 % Tidal Volume 600 PEEP 5 Sodium (136-145) mmol/L Potassium (3.5-5.1) mmol/L Chloride (98-107) mmol/L Carbon Dioxide (21-32) mmol/L Anion Gap (3-11) BUN (7-18) mg/dl Creatinine (0.6-1.4) mg/dl Est Cr Clr Drug Dosing Est GFR ( Amer) Est GFR (Non-Af Amer) BUN/Creatinine Ratio (10-20) Glucose (70-99) mg/dl POC Glucose (70-99) Lactate 1.4 (0.4-2.0) mmol/L Calcium (8.5-10.1) mg/dl Ionized Calcium (1.12-1.32) mmol/L Phosphorus (2.5-4.9) mg/dl Magnesium (1.8-2.4) mg/dl Total Bilirubin (0.2-1) mg/dl Direct Bilirubin (0-0.2) mg/dl AST (15-37) U/L ALT (12-78) U/L Alkaline Phosphatase (45-117) U/L Total Creatine Kinase (39-308) U/L Troponin I (0-0.045) ng/ml Total Protein (6.4-8.2) gm/dl Albumin (3.4-5.0) gm/dl Globulin (2.5-4.0) gm/dl Albumin/Globulin Ratio (0.9-2) Lipase (73-393) U/L Folate (>5.38) ng/ml Procalcitonin (0-0.5) ng/ml Random Cortisol mcg/dl Urine Color Urine Appearance (Clear) Urine pH (4.5-7.5) Ur Specific [place] (1.000-1.030) Urine Protein (Negative) Urine Glucose (UA) (Negative) Urine Ketones (Negative) Urine Blood (Negative) Urine Nitrite (Negative) Urine Bilirubin (Negative) Urine Urobilinogen (Negative) Ur Leukocyte Esterase (Negative) Urine WBC (Auto) (0-5) /hpf Urine RBC (Auto) (0-4) /hpf U Hyaline Cast (Auto) (0-5) /lpf U Epithel Cells (Auto) (0-5) /lpf Urine Bacteria (Auto) (Negative) Ur Renal Epithelial Cell Nasal Screen MRSA (PCR) (Negative) Blood Type B Positive Blood Type Recheck Antibody Screen POSITIVE A Antibody Identification Anti-K Antigen Identification K Antigen - NEGATIVE Direct Antiglob Test Negative (Negative) YANIV (IgG-AHG) Neg (Negative) YANIV, Polyspecific Neg (Negative) YANIV C3b, C3d 5 Min Neg (Negative) Crossmatch See Detail 05/12/19 05/12/19 05/12/19 Range/Units 04:01 04:01 04:01 WBC (4.8-10.8) K/uL RBC (4.7-6.1) M/uL Hgb (14.0-18.0) g/dL Hct (42-52) % MCV (80-100) fL MCH (25-34) pg MCHC (32-36) g/dL RDW Std Deviation (36.4-46.3) fL RDW Coeff of Jennifer (11.5-14.5) % Plt Count (130-400) K/uL MPV (7.4-10.4) fL Immature Gran % (Auto) % Neut % (Auto) % Lymph % (Auto) % [place] % (Auto) % Eos % (Auto) % Baso % (Auto) % Immature Gran # (Auto) (0.00-0.02) K/uL Neut # (Auto) (1.4-6.5) K/uL Lymph # (Auto) (1.2-3.4) K/uL [place] # (Auto) (0.11-0.59) K/uL Eos # (Auto) (0-0.5) K/uL Baso # (Auto) (0-0.2) K/uL Neutrophils % (Manual) % Lymphocytes % (Manual) % Monocytes % (Manual) % Metamyelocytes % (Man) % Neutrophils # (Manual) (1.4-6.5) K/uL Total Absolute Neuts (1.4-6.5) K/uL Lymphocytes # (Manual) (1.2-3.4) K/uL Total Abs Lymphocytes (1.2-3.4) K/uL Monocytes # (Manual) (0.11-0.59) K/uL Metamyelocytes # (Man) (0-0) K/uL Toxic Vacuolation Dohle Bodies Polychromasia Hypochromasia Anisocytosis PT (9.0-12.0) Seconds INR (0.9-1.1) APTT (21.0-31.0) Seconds PTT Ratio Sample Site POC pH (7.35-7.45) POC pCO2 (35-46) mmHg POC pO2 (80-95) mmHg POC HCO3 (19-24) sam/L POC Total CO2 (24-31) mEq/l POC Base Excess (-9-1.8) sam/L POC ABG O2 Sat (90-95) % Héctor Test O2 Delivery Device POC O2 Rate Minute Ventilation POC FiO2 % Tidal Volume PEEP Sodium 140 (136-145) mmol/L Potassium 3.7 (3.5-5.1) mmol/L Chloride 113 H (98-107) mmol/L Carbon Dioxide 23 (21-32) mmol/L Anion Gap 4.0 (3-11) BUN 10 (7-18) mg/dl Creatinine 0.43 L (0.6-1.4) mg/dl Est Cr Clr Drug Dosing 223.4 Est GFR ( Amer) 148.3 Est GFR (Non-Af Amer) 128.0 BUN/Creatinine Ratio 23.0 H (10-20) Glucose 130 H (70-99) mg/dl POC Glucose (70-99) Lactate (0.4-2.0) mmol/L Calcium 7.6 L (8.5-10.1) mg/dl Ionized Calcium (1.12-1.32) mmol/L Phosphorus 2.7 (2.5-4.9) mg/dl Magnesium 2.0 (1.8-2.4) mg/dl Total Bilirubin 0.6 (0.2-1) mg/dl Direct Bilirubin 0.3 H (0-0.2) mg/dl AST 24 (15-37) U/L ALT 21 (12-78) U/L Alkaline Phosphatase 65 (45-117) U/L Total Creatine Kinase (39-308) U/L Troponin I Cancelled 0.037 (0-0.045) ng/ml Total Protein 6.0 L (6.4-8.2) gm/dl Albumin 2.4 L (3.4-5.0) gm/dl Globulin (2.5-4.0) gm/dl Albumin/Globulin Ratio (0.9-2) Lipase 16 L (73-393) U/L Folate (>5.38) ng/ml Procalcitonin 18.62 H (0-0.5) ng/ml Random Cortisol mcg/dl Urine Color Urine Appearance (Clear) Urine pH (4.5-7.5) Ur Specific [place] (1.000-1.030) Urine Protein (Negative) Urine Glucose (UA) (Negative) Urine Ketones (Negative) Urine Blood (Negative) Urine Nitrite (Negative) Urine Bilirubin (Negative) Urine Urobilinogen (Negative) Ur Leukocyte Esterase (Negative) Urine WBC (Auto) (0-5) /hpf Urine RBC (Auto) (0-4) /hpf U Hyaline Cast (Auto) (0-5) /lpf U Epithel Cells (Auto) (0-5) /lpf Urine Bacteria (Auto) (Negative) Ur Renal Epithelial Cell Nasal Screen MRSA (PCR) (Negative) Blood Type Blood Type Recheck Antibody Screen Antibody Identification Antigen Identification Direct Antiglob Test (Negative) YANIV (IgG-AHG) (Negative) YANIV, Polyspecific (Negative) YANIV C3b, C3d 5 Min (Negative) Crossmatch 05/12/19 05/12/19 05/12/19 Range/Units 04:01 04:01 01:28 WBC 23.88 H (4.8-10.8) K/uL RBC 3.86 L (4.7-6.1) M/uL Hgb 8.9 L (14.0-18.0) g/dL Hct 28.9 L (42-52) % MCV 74.9 L (80-100) fL MCH 23.1 L (25-34) pg MCHC 30.8 L (32-36) g/dL RDW Std Deviation 50.0 H (36.4-46.3) fL RDW Coeff of Jennifer 18.3 H (11.5-14.5) % Plt Count 196 (130-400) K/uL MPV 10.5 H (7.4-10.4) fL Immature Gran % (Auto) 5.9 % Neut % (Auto) 85.0 % Lymph % (Auto) 3.2 % [place] % (Auto) 5.7 % Eos % (Auto) 0.0 % Baso % (Auto) 0.2 % Immature Gran # (Auto) 1.40 H (0.00-0.02) K/uL Neut # (Auto) 20.30 H (1.4-6.5) K/uL Lymph # (Auto) 0.77 L (1.2-3.4) K/uL [place] # (Auto) 1.36 H (0.11-0.59) K/uL Eos # (Auto) 0.01 (0-0.5) K/uL Baso # (Auto) 0.04 (0-0.2) K/uL Neutrophils % (Manual) % Lymphocytes % (Manual) % Monocytes % (Manual) % Metamyelocytes % (Man) % Neutrophils # (Manual) (1.4-6.5) K/uL Total Absolute Neuts (1.4-6.5) K/uL Lymphocytes # (Manual) (1.2-3.4) K/uL Total Abs Lymphocytes (1.2-3.4) K/uL Monocytes # (Manual) (0.11-0.59) K/uL Metamyelocytes # (Man) (0-0) K/uL Toxic Vacuolation 1+ Dohle Bodies 1+ Polychromasia 1+ Hypochromasia Present Anisocytosis Present PT 14.8 H (9.0-12.0) Seconds INR 1.5 H (0.9-1.1) APTT 35.9 H (21.0-31.0) Seconds PTT Ratio 1.3 Sample Site POC pH (7.35-7.45) POC pCO2 (35-46) mmHg POC pO2 (80-95) mmHg POC HCO3 (19-24) sam/L POC Total CO2 (24-31) mEq/l POC Base Excess (-9-1.8) sam/L POC ABG O2 Sat (90-95) % Héctor Test O2 Delivery Device POC O2 Rate Minute Ventilation POC FiO2 % Tidal Volume PEEP Sodium (136-145) mmol/L Potassium (3.5-5.1) mmol/L Chloride (98-107) mmol/L Carbon Dioxide (21-32) mmol/L Anion Gap (3-11) BUN (7-18) mg/dl Creatinine (0.6-1.4) mg/dl Est Cr Clr Drug Dosing Est GFR ( Amer) Est GFR (Non-Af Amer) BUN/Creatinine Ratio (10-20) Glucose (70-99) mg/dl POC Glucose 100 H (70-99) Lactate (0.4-2.0) mmol/L Calcium (8.5-10.1) mg/dl Ionized Calcium (1.12-1.32) mmol/L Phosphorus (2.5-4.9) mg/dl Magnesium (1.8-2.4) mg/dl Total Bilirubin (0.2-1) mg/dl Direct Bilirubin (0-0.2) mg/dl AST (15-37) U/L ALT (12-78) U/L Alkaline Phosphatase (45-117) U/L Total Creatine Kinase (39-308) U/L Troponin I (0-0.045) ng/ml Total Protein (6.4-8.2) gm/dl Albumin (3.4-5.0) gm/dl Globulin (2.5-4.0) gm/dl Albumin/Globulin Ratio (0.9-2) Lipase (73-393) U/L Folate (>5.38) ng/ml Procalcitonin (0-0.5) ng/ml Random Cortisol mcg/dl Urine Color Urine Appearance (Clear) Urine pH (4.5-7.5) Ur Specific [place] (1.000-1.030) Urine Protein (Negative) Urine Glucose (UA) (Negative) Urine Ketones (Negative) Urine Blood (Negative) Urine Nitrite (Negative) Urine Bilirubin (Negative) Urine Urobilinogen (Negative) Ur Leukocyte Esterase (Negative) Urine WBC (Auto) (0-5) /hpf Urine RBC (Auto) (0-4) /hpf U Hyaline Cast (Auto) (0-5) /lpf U Epithel Cells (Auto) (0-5) /lpf Urine Bacteria (Auto) (Negative) Ur Renal Epithelial Cell Nasal Screen MRSA (PCR) (Negative) Blood Type Blood Type Recheck Antibody Screen Antibody Identification Antigen Identification Direct Antiglob Test (Negative) YANIV (IgG-AHG) (Negative) YANIV, Polyspecific (Negative) YANIV C3b, C3d 5 Min (Negative) Crossmatch 05/12/19 05/11/19 05/11/19 Range/Units 00:47 22:34 22:34 WBC (4.8-10.8) K/uL RBC (4.7-6.1) M/uL Hgb (14.0-18.0) g/dL Hct (42-52) % MCV (80-100) fL MCH (25-34) pg MCHC (32-36) g/dL RDW Std Deviation (36.4-46.3) fL RDW Coeff of Jennifer (11.5-14.5) % Plt Count (130-400) K/uL MPV (7.4-10.4) fL Immature Gran % (Auto) % Neut % (Auto) % Lymph % (Auto) % [place] % (Auto) % Eos % (Auto) % Baso % (Auto) % Immature Gran # (Auto) (0.00-0.02) K/uL Neut # (Auto) (1.4-6.5) K/uL Lymph # (Auto) (1.2-3.4) K/uL [place] # (Auto) (0.11-0.59) K/uL Eos # (Auto) (0-0.5) K/uL Baso # (Auto) (0-0.2) K/uL Neutrophils % (Manual) % Lymphocytes % (Manual) % Monocytes % (Manual) % Metamyelocytes % (Man) % Neutrophils # (Manual) (1.4-6.5) K/uL Total Absolute Neuts (1.4-6.5) K/uL Lymphocytes # (Manual) (1.2-3.4) K/uL Total Abs Lymphocytes (1.2-3.4) K/uL Monocytes # (Manual) (0.11-0.59) K/uL Metamyelocytes # (Man) (0-0) K/uL Toxic Vacuolation Dohle Bodies Polychromasia Hypochromasia Anisocytosis PT (9.0-12.0) Seconds INR (0.9-1.1) APTT (21.0-31.0) Seconds PTT Ratio Sample Site POC pH (7.35-7.45) POC pCO2 (35-46) mmHg POC pO2 (80-95) mmHg POC HCO3 (19-24) sam/L POC Total CO2 (24-31) mEq/l POC Base Excess (-9-1.8) sam/L POC ABG O2 Sat (90-95) % Héctor Test O2 Delivery Device POC O2 Rate Minute Ventilation POC FiO2 % Tidal Volume PEEP Sodium (136-145) mmol/L Potassium (3.5-5.1) mmol/L Chloride (98-107) mmol/L Carbon Dioxide (21-32) mmol/L Anion Gap (3-11) BUN (7-18) mg/dl Creatinine (0.6-1.4) mg/dl Est Cr Clr Drug Dosing Est GFR ( Amer) Est GFR (Non-Af Amer) BUN/Creatinine Ratio (10-20) Glucose (70-99) mg/dl POC Glucose 71 (70-99) Lactate (0.4-2.0) mmol/L Calcium (8.5-10.1) mg/dl Ionized Calcium (1.12-1.32) mmol/L Phosphorus (2.5-4.9) mg/dl Magnesium (1.8-2.4) mg/dl Total Bilirubin (0.2-1) mg/dl Direct Bilirubin (0-0.2) mg/dl AST (15-37) U/L ALT (12-78) U/L Alkaline Phosphatase (45-117) U/L Total Creatine Kinase (39-308) U/L Troponin I (0-0.045) ng/ml Total Protein (6.4-8.2) gm/dl Albumin (3.4-5.0) gm/dl Globulin (2.5-4.0) gm/dl Albumin/Globulin Ratio (0.9-2) Lipase (73-393) U/L Folate 11.32 (>5.38) ng/ml Procalcitonin 24.73 H (0-0.5) ng/ml Random Cortisol mcg/dl Urine Color Urine Appearance (Clear) Urine pH (4.5-7.5) Ur Specific [place] (1.000-1.030) Urine Protein (Negative) Urine Glucose (UA) (Negative) Urine Ketones (Negative) Urine Blood (Negative) Urine Nitrite (Negative) Urine Bilirubin (Negative) Urine Urobilinogen (Negative) Ur Leukocyte Esterase (Negative) Urine WBC (Auto) (0-5) /hpf Urine RBC (Auto) (0-4) /hpf U Hyaline Cast (Auto) (0-5) /lpf U Epithel Cells (Auto) (0-5) /lpf Urine Bacteria (Auto) (Negative) Ur Renal Epithelial Cell Nasal Screen MRSA (PCR) (Negative) Blood Type Blood Type Recheck Antibody Screen Antibody Identification Antigen Identification Direct Antiglob Test (Negative) YANIV (IgG-AHG) (Negative) YANIV, Polyspecific (Negative) YANIV C3b, C3d 5 Min (Negative) Crossmatch 05/11/19 05/11/19 05/11/19 Range/Units 22:30 22:17 21:23 WBC (4.8-10.8) K/uL RBC (4.7-6.1) M/uL Hgb (14.0-18.0) g/dL Hct (42-52) % MCV (80-100) fL MCH (25-34) pg MCHC (32-36) g/dL RDW Std Deviation (36.4-46.3) fL RDW Coeff of Jennifer (11.5-14.5) % Plt Count (130-400) K/uL MPV (7.4-10.4) fL Immature Gran % (Auto) % Neut % (Auto) % Lymph % (Auto) % [place] % (Auto) % Eos % (Auto) % Baso % (Auto) % Immature Gran # (Auto) (0.00-0.02) K/uL Neut # (Auto) (1.4-6.5) K/uL Lymph # (Auto) (1.2-3.4) K/uL [place] # (Auto) (0.11-0.59) K/uL Eos # (Auto) (0-0.5) K/uL Baso # (Auto) (0-0.2) K/uL Neutrophils % (Manual) % Lymphocytes % (Manual) % Monocytes % (Manual) % Metamyelocytes % (Man) % Neutrophils # (Manual) (1.4-6.5) K/uL Total Absolute Neuts (1.4-6.5) K/uL Lymphocytes # (Manual) (1.2-3.4) K/uL Total Abs Lymphocytes (1.2-3.4) K/uL Monocytes # (Manual) (0.11-0.59) K/uL Metamyelocytes # (Man) (0-0) K/uL Toxic Vacuolation Dohle Bodies Polychromasia Hypochromasia Anisocytosis PT (9.0-12.0) Seconds INR (0.9-1.1) APTT (21.0-31.0) Seconds PTT Ratio Sample Site Art Line POC pH 7.34 L (7.35-7.45) POC pCO2 35 (35-46) mmHg POC pO2 82 (80-95) mmHg POC HCO3 19 (19-24) sam/L POC Total CO2 20 L (24-31) mEq/l POC Base Excess -6.0 (-9-1.8) sam/L POC ABG O2 Sat 95.0 (90-95) % Héctor Test NA O2 Delivery Device Ventilator POC O2 Rate 12 Minute Ventilation 9.5 POC FiO2 50 % Tidal Volume 600 PEEP 5 Sodium (136-145) mmol/L Potassium (3.5-5.1) mmol/L Chloride (98-107) mmol/L Carbon Dioxide (21-32) mmol/L Anion Gap (3-11) BUN (7-18) mg/dl Creatinine (0.6-1.4) mg/dl Est Cr Clr Drug Dosing Est GFR ( Amer) Est GFR (Non-Af Amer) BUN/Creatinine Ratio (10-20) Glucose (70-99) mg/dl POC Glucose (70-99) Lactate 3.5 H* (0.4-2.0) mmol/L Calcium (8.5-10.1) mg/dl Ionized Calcium (1.12-1.32) mmol/L Phosphorus (2.5-4.9) mg/dl Magnesium (1.8-2.4) mg/dl Total Bilirubin (0.2-1) mg/dl Direct Bilirubin (0-0.2) mg/dl AST (15-37) U/L ALT (12-78) U/L Alkaline Phosphatase (45-117) U/L Total Creatine Kinase (39-308) U/L Troponin I (0-0.045) ng/ml Total Protein (6.4-8.2) gm/dl Albumin (3.4-5.0) gm/dl Globulin (2.5-4.0) gm/dl Albumin/Globulin Ratio (0.9-2) Lipase (73-393) U/L Folate (>5.38) ng/ml Procalcitonin (0-0.5) ng/ml Random Cortisol mcg/dl Urine Color Dark Yellow Urine Appearance Clear (Clear) Urine pH 5.0 (4.5-7.5) Ur Specific [place] 1.027 (1.000-1.030) Urine Protein Trace H (Negative) Urine Glucose (UA) Negative (Negative) Urine Ketones Trace H (Negative) Urine Blood 3+ H (Negative) Urine Nitrite Negative (Negative) Urine Bilirubin Negative (Negative) Urine Urobilinogen Negative (Negative) Ur Leukocyte Esterase Trace H (Negative) Urine WBC (Auto) 10-30 H (0-5) /hpf Urine RBC (Auto) >30 H (0-4) /hpf U Hyaline Cast (Auto) 5-10 H (0-5) /lpf U Epithel Cells (Auto) >30 H (0-5) /lpf Urine Bacteria (Auto) Negative (Negative) Ur Renal Epithelial Cell Not Reportable Nasal Screen MRSA (PCR) (Negative) Blood Type Blood Type Recheck Antibody Screen Antibody Identification Antigen Identification Direct Antiglob Test (Negative) YANIV (IgG-AHG) (Negative) YANIV, Polyspecific (Negative) YANIV C3b, C3d 5 Min (Negative) Crossmatch 05/11/19 05/11/19 05/11/19 Range/Units 21:17 21:08 21:08 WBC (4.8-10.8) K/uL RBC (4.7-6.1) M/uL Hgb (14.0-18.0) g/dL Hct (42-52) % MCV (80-100) fL MCH (25-34) pg MCHC (32-36) g/dL RDW Std Deviation (36.4-46.3) fL RDW Coeff of Jennifer (11.5-14.5) % Plt Count (130-400) K/uL MPV (7.4-10.4) fL Immature Gran % (Auto) % Neut % (Auto) % Lymph % (Auto) % [place] % (Auto) % Eos % (Auto) % Baso % (Auto) % Immature Gran # (Auto) (0.00-0.02) K/uL Neut # (Auto) (1.4-6.5) K/uL Lymph # (Auto) (1.2-3.4) K/uL [place] # (Auto) (0.11-0.59) K/uL Eos # (Auto) (0-0.5) K/uL Baso # (Auto) (0-0.2) K/uL Neutrophils % (Manual) % Lymphocytes % (Manual) % Monocytes % (Manual) % Metamyelocytes % (Man) % Neutrophils # (Manual) (1.4-6.5) K/uL Total Absolute Neuts (1.4-6.5) K/uL Lymphocytes # (Manual) (1.2-3.4) K/uL Total Abs Lymphocytes (1.2-3.4) K/uL Monocytes # (Manual) (0.11-0.59) K/uL Metamyelocytes # (Man) (0-0) K/uL Toxic Vacuolation Dohle Bodies Polychromasia Hypochromasia Anisocytosis PT (9.0-12.0) Seconds INR (0.9-1.1) APTT (21.0-31.0) Seconds PTT Ratio Sample Site POC pH (7.35-7.45) POC pCO2 (35-46) mmHg POC pO2 (80-95) mmHg POC HCO3 (19-24) sam/L POC Total CO2 (24-31) mEq/l POC Base Excess (-9-1.8) sam/L POC ABG O2 Sat (90-95) % Héctor Test O2 Delivery Device POC O2 Rate Minute Ventilation POC FiO2 % Tidal Volume PEEP Sodium (136-145) mmol/L Potassium (3.5-5.1) mmol/L Chloride (98-107) mmol/L Carbon Dioxide (21-32) mmol/L Anion Gap (3-11) BUN (7-18) mg/dl Creatinine (0.6-1.4) mg/dl Est Cr Clr Drug Dosing Est GFR ( Amer) Est GFR (Non-Af Amer) BUN/Creatinine Ratio (10-20) Glucose (70-99) mg/dl POC Glucose 137 H (70-99) Lactate (0.4-2.0) mmol/L Calcium (8.5-10.1) mg/dl Ionized Calcium 1.07 L (1.12-1.32) mmol/L Phosphorus (2.5-4.9) mg/dl Magnesium (1.8-2.4) mg/dl Total Bilirubin (0.2-1) mg/dl Direct Bilirubin (0-0.2) mg/dl AST (15-37) U/L ALT (12-78) U/L Alkaline Phosphatase (45-117) U/L Total Creatine Kinase (39-308) U/L Troponin I (0-0.045) ng/ml Total Protein (6.4-8.2) gm/dl Albumin (3.4-5.0) gm/dl Globulin (2.5-4.0) gm/dl Albumin/Globulin Ratio (0.9-2) Lipase (73-393) U/L Folate (>5.38) ng/ml Procalcitonin (0-0.5) ng/ml Random Cortisol mcg/dl Urine Color Urine Appearance (Clear) Urine pH (4.5-7.5) Ur Specific [place] (1.000-1.030) Urine Protein (Negative) Urine Glucose (UA) (Negative) Urine Ketones (Negative) Urine Blood (Negative) Urine Nitrite (Negative) Urine Bilirubin (Negative) Urine Urobilinogen (Negative) Ur Leukocyte Esterase (Negative) Urine WBC (Auto) (0-5) /hpf Urine RBC (Auto) (0-4) /hpf U Hyaline Cast (Auto) (0-5) /lpf U Epithel Cells (Auto) (0-5) /lpf Urine Bacteria (Auto) (Negative) Ur Renal Epithelial Cell Nasal Screen MRSA (PCR) (Negative) Blood Type Blood Type Recheck B Positive Antibody Screen Antibody Identification Antigen Identification Direct Antiglob Test (Negative) YANIV (IgG-AHG) (Negative) YANIV, Polyspecific (Negative) YANIV C3b, C3d 5 Min (Negative) Crossmatch 05/11/19 05/11/19 05/11/19 Range/Units 21:08 21:08 21:08 WBC (4.8-10.8) K/uL RBC (4.7-6.1) M/uL Hgb (14.0-18.0) g/dL Hct (42-52) % MCV (80-100) fL MCH (25-34) pg MCHC (32-36) g/dL RDW Std Deviation (36.4-46.3) fL RDW Coeff of Jennifer (11.5-14.5) % Plt Count (130-400) K/uL MPV (7.4-10.4) fL Immature Gran % (Auto) % Neut % (Auto) % Lymph % (Auto) % [place] % (Auto) % Eos % (Auto) % Baso % (Auto) % Immature Gran # (Auto) (0.00-0.02) K/uL Neut # (Auto) (1.4-6.5) K/uL Lymph # (Auto) (1.2-3.4) K/uL [place] # (Auto) (0.11-0.59) K/uL Eos # (Auto) (0-0.5) K/uL Baso # (Auto) (0-0.2) K/uL Neutrophils % (Manual) % Lymphocytes % (Manual) % Monocytes % (Manual) % Metamyelocytes % (Man) % Neutrophils # (Manual) (1.4-6.5) K/uL Total Absolute Neuts (1.4-6.5) K/uL Lymphocytes # (Manual) (1.2-3.4) K/uL Total Abs Lymphocytes (1.2-3.4) K/uL Monocytes # (Manual) (0.11-0.59) K/uL Metamyelocytes # (Man) (0-0) K/uL Toxic Vacuolation Dohle Bodies Polychromasia Hypochromasia Anisocytosis PT 14.3 H (9.0-12.0) Seconds INR 1.4 H (0.9-1.1) APTT 28.8 (21.0-31.0) Seconds PTT Ratio 1.1 Sample Site POC pH (7.35-7.45) POC pCO2 (35-46) mmHg POC pO2 (80-95) mmHg POC HCO3 (19-24) sam/L POC Total CO2 (24-31) mEq/l POC Base Excess (-9-1.8) sam/L POC ABG O2 Sat (90-95) % Héctor Test O2 Delivery Device POC O2 Rate Minute Ventilation POC FiO2 % [place] Volume PEEP Sodium 139 (136-145) mmol/L Potassium 3.6 (3.5-5.1) mmol/L Chloride 107 (98-107) mmol/L Carbon Dioxide 21 (21-32) mmol/L Anion Gap 11.0 (3-11) BUN 14 (7-18) mg/dl Creatinine 0.63 (0.6-1.4) mg/dl Est Cr Clr Drug Dosing Not Reportable Est GFR ( Amer) 126.8 Est GFR (Non-Af Amer) 109.4 BUN/Creatinine Ratio 21.4 H (10-20) Glucose 101 H (70-99) mg/dl POC Glucose (70-99) Lactate (0.4-2.0) mmol/L Calcium 8.0 L (8.5-10.1) mg/dl Ionized Calcium (1.12-1.32) mmol/L Phosphorus 3.5 (2.5-4.9) mg/dl Magnesium 1.8 (1.8-2.4) mg/dl Total Bilirubin 0.6 (0.2-1) mg/dl Direct Bilirubin (0-0.2) mg/dl AST 31 (15-37) U/L ALT 21 (12-78) U/L Alkaline Phosphatase 66 (45-117) U/L Total Creatine Kinase 98 (39-308) U/L Troponin I 0.039 (0-0.045) ng/ml Total Protein 6.2 L (6.4-8.2) gm/dl Albumin 2.5 L (3.4-5.0) gm/dl Globulin 3.7 (2.5-4.0) gm/dl Albumin/Globulin Ratio 0.7 L (0.9-2) Lipase (73-393) U/L Folate (>5.38) ng/ml Procalcitonin (0-0.5) ng/ml Random Cortisol 30.09 mcg/dl Urine Color Urine Appearance (Clear) Urine pH (4.5-7.5) Ur Specific [place] (1.000-1.030) Urine Protein (Negative) Urine Glucose (UA) (Negative) Urine Ketones (Negative) Urine Blood (Negative) Urine Nitrite (Negative) Urine Bilirubin (Negative) Urine Urobilinogen (Negative) Ur Leukocyte Esterase (Negative) Urine WBC (Auto) (0-5) /hpf Urine RBC (Auto) (0-4) /hpf U Hyaline Cast (Auto) (0-5) /lpf U Epithel Cells (Auto) (0-5) /lpf Urine Bacteria (Auto) (Negative) Ur Renal Epithelial Cell Nasal Screen MRSA (PCR) (Negative) Blood Type Blood Type Recheck Antibody Screen Antibody Identification Antigen Identification Direct Antiglob Test (Negative) YANIV (IgG-AHG) (Negative) YANIV, Polyspecific (Negative) YANIV C3b, C3d 5 Min (Negative) Crossmatch 05/11/19 05/11/19 Range/Units 21:08 20:15 WBC 28.06 H (4.8-10.8) K/uL RBC 3.76 L (4.7-6.1) M/uL Hgb 8.6 L (14.0-18.0) g/dL Hct 28.5 L (42-52) % MCV 75.8 L (80-100) fL MCH 22.9 L (25-34) pg MCHC 30.2 L (32-36) g/dL RDW Std Deviation 50.8 H (36.4-46.3) fL RDW Coeff of Jennifer 18.3 H (11.5-14.5) % Plt Count 250 (130-400) K/uL MPV 10.6 H (7.4-10.4) fL Immature Gran % (Auto) % Neut % (Auto) % Lymph % (Auto) % [place] % (Auto) % Eos % (Auto) % Baso % (Auto) % Immature Gran # (Auto) (0.00-0.02) K/uL Neut # (Auto) (1.4-6.5) K/uL Lymph # (Auto) (1.2-3.4) K/uL [place] # (Auto) (0.11-0.59) K/uL Eos # (Auto) (0-0.5) K/uL Baso # (Auto) (0-0.2) K/uL Neutrophils % (Manual) 84.9 % Lymphocytes % (Manual) 6.2 % Monocytes % (Manual) 1.8 % Metamyelocytes % (Man) 7.1 % Neutrophils # (Manual) 23.82 H (1.4-6.5) K/uL Total Absolute Neuts 23.82 H (1.4-6.5) K/uL Lymphocytes # (Manual) 1.74 (1.2-3.4) K/uL Total Abs Lymphocytes 1.74 (1.2-3.4) K/uL Monocytes # (Manual) 0.51 (0.11-0.59) K/uL Metamyelocytes # (Man) 1.99 H (0-0) K/uL Toxic Vacuolation Dohle Bodies Polychromasia 1+ Hypochromasia Present Anisocytosis PT (9.0-12.0) Seconds INR (0.9-1.1) APTT (21.0-31.0) Seconds PTT Ratio Sample Site POC pH (7.35-7.45) POC pCO2 (35-46) mmHg POC pO2 (80-95) mmHg POC HCO3 (19-24) sam/L POC Total CO2 (24-31) mEq/l POC Base Excess (-9-1.8) sam/L POC ABG O2 Sat (90-95) % Héctor Test O2 Delivery Device POC O2 Rate Minute Ventilation POC FiO2 % Tidal Volume PEEP Sodium (136-145) mmol/L Potassium (3.5-5.1) mmol/L Chloride (98-107) mmol/L Carbon Dioxide (21-32) mmol/L Anion Gap (3-11) BUN (7-18) mg/dl Creatinine (0.6-1.4) mg/dl Est Cr Clr Drug Dosing Est GFR ( Amer) Est GFR (Non-Af Amer) BUN/Creatinine Ratio (10-20) Glucose (70-99) mg/dl POC Glucose (70-99) Lactate (0.4-2.0) mmol/L Calcium (8.5-10.1) mg/dl Ionized Calcium (1.12-1.32) mmol/L Phosphorus (2.5-4.9) mg/dl Magnesium (1.8-2.4) mg/dl Total Bilirubin (0.2-1) mg/dl Direct Bilirubin (0-0.2) mg/dl AST (15-37) U/L ALT (12-78) U/L Alkaline Phosphatase (45-117) U/L Total Creatine Kinase (39-308) U/L Troponin I (0-0.045) ng/ml Total Protein (6.4-8.2) gm/dl Albumin (3.4-5.0) gm/dl Globulin (2.5-4.0) gm/dl Albumin/Globulin Ratio (0.9-2) Lipase (73-393) U/L Folate (>5.38) ng/ml Procalcitonin (0-0.5) ng/ml Random Cortisol mcg/dl Urine Color Urine Appearance (Clear) Urine pH (4.5-7.5) Ur Specific [place] (1.000-1.030) Urine Protein (Negative) Urine Glucose (UA) (Negative) Urine Ketones (Negative) Urine Blood (Negative) Urine Nitrite (Negative) Urine Bilirubin (Negative) Urine Urobilinogen (Negative) Ur Leukocyte Esterase (Negative) Urine WBC (Auto) (0-5) /hpf Urine RBC (Auto) (0-4) /hpf U Hyaline Cast (Auto) (0-5) /lpf U Epithel Cells (Auto) (0-5) /lpf Urine Bacteria (Auto) (Negative) Ur Renal Epithelial Cell Nasal Screen MRSA (PCR) Positive A (Negative) Blood Type Blood Type Recheck Antibody Screen Antibody Identification Antigen Identification Direct Antiglob Test (Negative) YANIV (IgG-AHG) (Negative) YANIV, Polyspecific (Negative) YANIV C3b, C3d 5 Min (Negative) Crossmatch Medications Administered Current Inpatient Medications Albuterol (Duoneb) 3 ml NEB Q4R PRN PRN Reason: Wheezing Stop: 06/10/19 22:12 Ascorbic Acid (Vitamin C) 500 mg NG BID [facility] Stop: 06/11/19 08:59 Last Admin: 05/12/19 10:26 Dose: 500 mg Documented by: Aspirin (Aspirin Chew) 81 mg NG QAM [facility] Stop: 06/11/19 08:59 Last Admin: 05/12/19 10:26 Dose: 81 mg Documented by: Diltiazem HCl (Tiazac) 120 mg PO [facility] Stop: 06/11/19 08:59 Escitalopram Oxalate (Lexapro) 20 mg PO QAM [facility] Stop: 06/11/19 08:59 Fentanyl Citrate (Fentanyl Citrate) 50 mcg IV Q2H PRN PRN Reason: Moderate Pain (4,5,6) Stop: 05/25/19 22:06 Last Admin: 05/11/19 23:28 Dose: 25 mcg Documented by: Ferrous Sulfate (Feosol) 325 mg NG BIDM [facility] Stop: 06/11/19 07:59 Last Admin: 05/12/19 10:26 Dose: 325 mg Documented by: Gabapentin (Neurontin) 800 mg PO TID [facility] Stop: 06/11/19 08:59 Last Admin: 05/12/19 10:27 Dose: 800 mg Documented by: Heparin Sodium (Beef Lung) (Heparin Sod 10 Unit/Ml Flush) 5 ml FLUSH PRN PRN PRN Reason: Flush Stop: 06/11/19 01:10 Heparin Sodium (Porcine) (Heparin Sodium (Porcine)) 5,000 units SQ Q12 [facility] Stop: 06/11/19 08:59 Last Admin: 05/12/19 10:27 Dose: 5,000 units Documented by: Propofol (Diprivan) 1,000 mg in 100 mls @ 22.896 mls/hr IV .Q4H23M PRN; Protocol PRN Reason: Titration Stop: 05/14/19 22:06 Last Titration: 05/12/19 10:20 Dose: 40 mcg/kg/min, 22.9 mls/hr Documented by: Parenteral Electrolytes (Normosol-R) 1,000 mls @ 100 mls/hr IV .Q10H [facility]ACH[facility] Stop: 06/10/19 22:14 Last Admin: 05/12/19 10:27 Dose: 100 mls/hr Documented by: Folic Acid 1 mg/ Syringe 10 mls @ 5 mls/min IV QAM [facility] Stop: 06/11/19 08:59 Last Admin: 05/12/19 10:26 Dose: 5 mls/min Documented by: Thiamine HCl 100 mg/ Syringe 10 mls @ 2 mls/hr IV QAM [facility] Stop: 06/10/19 22:14 Last Admin: 05/12/19 10:27 Dose: 2 mls/hr Documented by: Norepinephrine Bitartrate 8 mg (/ Dextrose) 508 mls @ 18.17 mls/hr IV .Q24H PRN; Protocol PRN Reason: TITRATE Stop: 06/10/19 22:44 Last Admin: 05/12/19 10:27 Dose: 0.05 mcg/kg/min, 18.2 mls/hr Documented by: Acetaminophen (Ofirmev) 1,000 mg in 100 mls @ 400 mls/hr IV Q8H PRN PRN Reason: Fever Stop: 06/10/19 23:40 Last Infusion: 05/12/19 01:45 Dose: Infused Documented by: Famotidine 20 mg/ Syringe 5 mls @ 2.5 mls/min IV Q12H [facility]ACH[facility] Stop: 06/11/19 01:59 Last Admin: 05/12/19 01:28 Dose: 2.5 mls/min Documented by: Vancomycin HCl 1,250 mg/ (Sodium Chloride) 275 mls @ 125 mls/hr IV Q8H [facility] Stop: 05/19/19 07:59 Last Admin: 05/12/19 10:27 Dose: 125 mls/hr Documented by: Methylprednisolone 40 mg/ (Syringe) 0.64 mls @ 1.5 mls/min IV Q12H [facility]ACH[facility] Stop: 06/11/19 19:59 Piperacillin Sod/Tazobactam (Sod 4.5 gm/ Dextrose) 120 mls @ 30 mls/hr IV Q8H RACHNA; Protocol Stop: 05/18/19 11:59 Ioversol (Optiray 320 125ml) 120 ml IV ONCE PRN PRN Reason: Interaction Checking Stop: 05/16/19 00:18 Miscellaneous (Icu Protocol For Hyperglycemia) 1 ea N/A PRN PRN; Protocol PRN Reason: Hyperglycemia Protocol Stop: 05/13/19 20:24 Miscellaneous Information (Consult) 1 ea N/A UD PRN PRN Reason: Consult Stop: 06/10/19 22:12 Miscellaneous Information (Consult) 1 ea N/A UD PRN PRN Reason: Consult Stop: 06/10/19 22:12 Nortriptyline HCl (Pamelor) 100 mg PO HS [facility] Stop: 06/11/19 20:59 Pantoprazole Sodium (Protonix) 40 mg PO BID [facility] Stop: 06/11/19 08:59 Sennosides (Senokot) 8.8 mg NG QAM PRN PRN Reason: Constipation Stop: 06/11/19 09:27 Simvastatin (Zocor) 40 mg NG PM [facility] Stop: 06/11/19 20:59 Ticagrelor (Brilinta) 90 mg PO BID [facility] Stop: 06/11/19 08:59 Last Admin: 05/12/19 10:28 Dose: 90 mg Documented by: Resident Activity Tracking Resident Involvement: Resident Care Provided Care Provided: Adult Hospital Medicine
--- NOTE | 2019-05-12 12:16 | Pharmacy Report ---
Pharmacy Abx Initial Consult - Date of Service May 12, 2019 - Pharmacy Dosing Scope Date of Consult: 05/12/19 Consultation requested by: Rosalio Andrade PA-C Pharmacy is consulted to initiate Vancomycin and Zosyn IV dosing therapy, order appropriate labs and adjust drug dose/frequency. - Subjective The patient is a 58 year old M admitted on 05/11/19 20:00. - Objective Height: 5 ft 11 in Weight: 97.5 kg Vital Signs (Past 12hrs): Vital Signs Pulse Resp BP Pulse Ox 05/12/19 11:40 77 112/55 L 05/12/19 11:30 76 97 05/12/19 11:01 78 98 05/12/19 10:31 80 99 05/12/19 10:01 82 98 05/12/19 10:00 80 116/71 98 05/12/19 09:31 83 98 05/12/19 09:03 77 21 99 05/12/19 09:01 80 99 05/12/19 09:00 81 128/78 98 05/12/19 08:40 80 128/76 98 05/12/19 08:30 81 98 05/12/19 08:01 82 97 05/12/19 08:00 82 128/76 98 05/12/19 07:30 84 99 05/12/19 07:00 79 115/71 99 05/12/19 06:45 80 99 05/12/19 06:00 80 130/77 98 05/12/19 05:59 78 21 100 05/12/19 05:00 80 16 110/68 98 05/12/19 04:09 77 13 100 05/12/19 04:01 78 100 05/12/19 04:00 78 111/65 100 05/12/19 03:01 82 100 05/12/19 03:00 82 118/70 100 05/12/19 02:01 83 100 05/12/19 02:00 83 103/60 100 05/12/19 01:01 91 H 97 05/12/19 01:00 92 H 106/62 97 05/12/19 00:36 92 H 18 96 Lab Results (24hrs): Laboratory Tests (24 Hours) 05/12/19 05/12/19 05/12/19 04:01 04:01 04:01 WBC 23.88 H Neut # (Auto) 20.30 H Creatinine 0.43 L Est Cr Clr Drug Dosing 223.4 Total Creatine Kinase Procalcitonin 18.62 H 05/11/19 05/11/19 05/11/19 22:34 21:08 21:08 WBC 28.06 H Neut # (Auto) Creatinine 0.63 Est Cr Clr Drug Dosing Not Reportable Total Creatine Kinase 98 Procalcitonin 24.73 H Micro Results: 05/11/19 22:30 Urine Culture - Pending Urine,Random 05/11/19 22:47 Aerobic Blood Culture - Pending Blood Anaerobic Blood Culture - Pending 05/11/19 22:34 Aerobic Blood Culture - Pending Blood Anaerobic Blood Culture - Pending - Risk Factors for Resistance * Hospitalization for 48 hours or more within the past 90 days - Assessment & Plan Assessment 58 year old M admitted with sepsis secondary to pneumonia; he was transferred from [facility]. Plan Vancomycin IV * Estimated PK Parameters: Luis Enrique 0.112 hr-1, t1/2 6.19 hr * Loading dose: 2000 mg (~21 mg/kg) * Maintenance dose: 1250 mg IV (~13.1 mg/kg) every 8 hours * Goal trough level for pneumonia : 15 to 20 mcg/mL * Trough level ordered for 05/12/19 @ 2330 (prior to 3rd dose and therefore not reflective of steady state) Piperacillin/tazobactam * 4.5 g bolus administered over 30 minutes, then 4.5 g IV extended infusion every 8 hours for CrCl greater than 20 mL/min * Aggressive dosing selected due to critically ill status/BMI 35 or more/history of cystic fibrosis. Pharmacy will continue to follow and will adjust dose/frequency as necessary. Thank you.
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
[2019-05-12] MEDS: PIPERACILLIN/TAZOBACTAM 4.5 GM in DEXTROSE 5% 100 ML IV SCH ×2 (12:54→19:42)
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
--- NOTE | 2019-05-12 14:37 | Hospitalist Progress Note ---
Date of Service May 12, 2019 Results & Data Vital Signs (Past 12 Hours) Vital Signs Pulse Resp BP Pulse Ox 05/12/19 11:40 77 112/55 L 05/12/19 11:30 76 97 05/12/19 11:23 77 25 H 95 05/12/19 11:01 78 98 05/12/19 10:31 80 99 05/12/19 10:01 82 98 05/12/19 10:00 80 116/71 98 05/12/19 09:31 83 98 05/12/19 09:03 77 21 99 05/12/19 09:01 80 99 05/12/19 09:00 81 128/78 98 05/12/19 08:40 80 128/76 98 05/12/19 08:30 81 98 05/12/19 08:01 82 97 05/12/19 08:00 82 128/76 98 05/12/19 07:30 84 99 05/12/19 07:00 79 115/71 99 05/12/19 06:45 80 99 05/12/19 06:00 80 130/77 98 05/12/19 05:59 78 21 100 05/12/19 05:00 80 16 110/68 98 05/12/19 04:09 77 13 100 05/12/19 04:01 78 100 05/12/19 04:00 78 111/65 100 05/12/19 03:01 82 100 05/12/19 03:00 82 118/70 100 PG Care Time/CCT Total # of Minutes Spent Total Time Spent with Patient: Total time spent is greater than 50% in coordination of care (as documented) at patient's floor/unit and/or counseling patient:
[2019-05-12] MEDS: methylPREDNISolone 40 MG in SYRINGE 0 ML IV SCH (19:43)
[2019-05-12] MEDS ORDERED: SIMVASTATIN 40 MG TAB NG SCH (21:00)
[2019-05-12] MEDS ORDERED: SIMVASTATIN 40 MG TAB PO SCH (21:00)
[2019-05-12] MEDS ORDERED: NORTRIPTYLINE HCL 25 MG CAP PO SCH (21:00)
[2019-05-12] MEDS ORDERED: VANCOMYCIN TROUGH ONE (23:30)
[2019-05-13] MEDS ORDERED: GLUCOSE 40% GEL 15 GM TUBE PO PRN (01:15)
[2019-05-13] MEDS ORDERED: CARBOHYDRATES FOR HYPOGLYCEMIA PO PRN (01:15)
[2019-05-13] MEDS ORDERED: GLUCOSE 10 TABS/TUBE PO PRN (01:15)
[2019-05-13] MEDS ORDERED: DEXTROSE 50% 50 ML SYRINGE IV PRN (01:15)
[2019-05-13] MEDS ORDERED: GLUCAGON FOR INJ 1 MG VIAL SQ PRN (01:15)
[2019-05-13] MEDS ORDERED: PHARMACY GLYCEMIC MGMT CONSULT PRN (01:26)
[2019-05-13] MEDS: FAMOTIDINE 20 MG in SYRINGE 3 ML IV SCH ×2 (02:13→12:56)
[2019-05-13] MEDS: PROPOFOL 1,000 MG/100 ML VIAL IV PRN ×2 (02:13→05:33)
[2019-05-13] MEDS: PIPERACILLIN/TAZOBACTAM 4.5 GM in DEXTROSE 5% 100 ML IV SCH ×3 (04:03→19:58)
[2019-05-13 04:20] LABS: Hematocrit (blood only) 28.7 % (42-52); Hemoglobin 8.9 g/dL (14.0-18.0); Mean Corpuscular Volume 74.4 fL (80-100); Mean Platelet Volume 11.1 fL (7.4-10.4); Platelet Count 276 K/uL (130-400); RDW Coefficient of Variation 18.6 % (11.5-14.5); RDW Standard Deviation 50.2 fL (36.4-46.3); Red Blood Count 3.86 M/uL (4.7-6.1); White Blood Count 25.39 K/uL (4.8-10.8)
[2019-05-13 04:30] LABS: INR 1.1 (0.9-1.1); Partial Thromboplastin Ratio 1.2; Partial Thromboplastin Time 32.6 Seconds (21.0-31.0); Prothrombin Time 11.3 Seconds (9.0-12.0)
[2019-05-13 04:39] LABS: Alanine Aminotransferase 18 U/L (12-78); Albumin Level 2.2 gm/dl (3.4-5.0); Aspartate Aminotransferase 20 U/L (15-37); BUN Creatinine Ratio 28.7 (10-20); Blood Urea Nitrogen 10 mg/dl (7-18); Carbon Dioxide 25 mmol/L (21-32); Chloride 111 mmol/L (98-107); Creatinine Clr Calc Pharmacy 285.4 ml/min; Est GFR (African American) > 150.0; Glucose 136 mg/dl (70-99); Magnesium 2.4 mg/dl (1.8-2.4); Potassium 3.7 mmol/L (3.5-5.1); Sodium 140 mmol/L (136-145)
[2019-05-13 04:51] LABS: Basophils # (auto) 0.02 K/uL (0-0.2); Basophils % (auto) 0.1 %; Immature Granulocytes % (auto) 3.5 %; Lymphocytes # (auto) 0.88 K/uL (1.2-3.4); Lymphocytes % (auto) 3.5 %; Monocytes # (auto) 1.62 K/uL (0.11-0.59); Monocytes % (auto) 6.4 %; Neutrophils # (auto) 21.97 K/uL (1.4-6.5); Neutrophils % (auto) 86.5 %
[2019-05-13 04:56] LABS: Alkaline Phosphatase 61 U/L (45-117); Bilirubin Direct 0.2 mg/dl (0-0.2); Bilirubin,Total 0.5 mg/dl (0.2-1); Phosphorus 1.7 mg/dl (2.5-4.9)
[2019-05-13] MEDS: VANCOMYCIN HCL 1,250 MG in SODIUM CHLORIDE 0.9% 250 ML IV SCH ×3 (05:29→18:21)
[2019-05-13] MEDS: INSULIN ASPART 100 UNITS/ML 3 ML PEN SC SCH ×3 (05:34→17:06)
[2019-05-13] MEDS ORDERED: POTASSIUM PHOS 3 MMOL/1 ML INFUSION IV STA (05:49)
[2019-05-13] MEDS ORDERED: CALCIUM GLUCONATE 10% 1,000 MG in SODIUM CHLORIDE 0.9% 50 ML IV STA (05:49)
[2019-05-13 05:58] LABS: iSTAT Arterial Blood Gas HCO3 22 meg/L (19-24); iSTAT Arterial Blood Gas pCO2 34 mmHg (35-46); iSTAT Arterial Blood Gas pH 7.42 (7.35-7.45); iSTAT Carbon Dioxide 23 mEq/l (24-31); iSTAT FiO2 45 %; iSTAT Site Art Line
[2019-05-13] MEDS ORDERED: POTASSIUM PHOSPHATE 9 MMOL in SODIUM CHLORIDE 0.9% 250 ML IV ONE (06:15)
--- NOTE | 2019-05-13 07:16 | XRay Report ---
XR chest 1V portable CLINICAL HISTORY: Sepsis ABNORMAL CHEST X-RAY, respiratory failure COMPARISON STUDY: 05/12/2019 FINDINGS: The heart remains enlarged. There is a nasogastric tube which passes into the stomach. Ther e is a right internal jugular central venous catheter. There is an endotracheal tube position 4.6 cm above the lynne. There are persistent bilateral pleural effusions with associated basilar airspace o pacities. There is radiographic evidence of congestive failure/fluid overload.[ IMPRESSION: 1. Persistent cardiomegaly, and radiographic evidence of congestive failure/fluid overload 2. Persistent bilateral pleural effusions with associated basilar airspace opacities Electronically signed by: Paxton Aguila M.D. 05/13/2019 7:15 AM
[2019-05-13] MEDS: ALBUT/IPRATROP 3MG/0.5MG NEB 3 ML VIAL NEB SCH ×5 (07:29→23:23)
[2019-05-13] MEDS ORDERED: INSULIN HUMAN REGULAR SC SCH (07:30)
--- NOTE | 2019-05-13 07:55 | Family Medicine Progress Note ---
Date of Service May 13, 2019 Assessment & Plan (1) Severe sepsis: Admitted to the ICU as a direct transfer from [facility], at [facility] he was intubated and mechanically ventilated due to acute hypoxic respiratory failure secondary to bilateral lower lobe pneumonia with severe sepsis. CT scan demonstrates cardiomegaly with evidence of pulmonary artery hypertension, distended gallbladder with cholelithiasis intraluminal gas of the bladder wall right and left inguinal hernias rectosigmoid fecal impaction hepatomegaly. Ultrasounds of the gallbladder demonstrated distention and filled with numerous gallstones negative for wall thickening pericholecystic fluid observed. #Bilateral lower lobe pneumonia Previously diagnosed at [facility] with associated severe sepsis.Chest x-ray demonstrates small pleural effusions with bibasilar consolidation ET tube in place. WBC is elevated to 23.88 today Procalcitonin 18.62.Cultures obtained and pending -Continue Vanco Zosyn management per ICU -Given Pneumovax -Methylprednisolone per ICU -Plan to extubate today -Follow-up cultures -Follow labs serially #Acute hypoxic respiratory failure See above #Admitted to the ICU ICU staff managing sepsis and stabilizing patient while intubated #CAD Patient had stent placed last week in the mid LAD -Continue dual antiplatelet therapy unless otherwise specified by ICU #A. fib Holding home diltiazem given ICU status FENa: N.p.o. Code Status: Full code DVT PPX: Heparin Dispo: ICU Supervising Physician Co-Signing Physician Notes I personally examined the patient and verified all rodriguez points of history and exam, discussed case, and agree with decision making with Dr Arriola extubated, on NC O2. notes no sob/dyspnea. despite audible stridor, he notes he feels fine. actually main point in HPI / ROS he wants to underscore is that he's done w smoking. vitals noted, pleasant nad. audible stridor from doorway, but breathing unlabored no accessory muscles. diffuse rhonchi R>L no wheeze, good effort. no focal neuro deficits. skin no rashes no pallor or icterus sepsis/septic shock/acute respiratory failure requiring mechanical ventilation - due to pneumonia. now improved and extubated. agree ENT eval for stridor, but fortunately does not actually seem to be causing any dyspnea. continue current abx and supportive care. applauded decision to quit smoking otherwise as above, as per ICU Subjective Patient mechanically intubated and sedated unable to obtain interval history. Respiratory therapy was in the room when I was present, patient was not awake. The plan is to attempt extubation later today. Physical Exam Physical Exam: General: Patient sedated, intubated, and mechanically ventilated HEENT: Normocephalic atraumatic Neck: Negative JVD negative bruit trachea midline negative adenopathy, ET in position Cardiac: Regular rate and rhythm I did not appreciate any murmurs rubs or gallops normal S1 normal S2 good capillary refill negative pedal edema Respiratory: Coarse breath sounds bilaterally GI: Normal bowel sounds, soft, nontender nondistended MSK: Good pulses pulses bilaterally Skin: No new rashes, normal turgor Neuro: Sedated and intubated Results & Data Vital Signs (Past 12 Hours) Vital Signs Pulse Pulse Resp Pulse Ox 05/13/19 07:36 73 16 98 05/13/19 07:34 73 18 98 05/13/19 05:14 83 22 99 05/13/19 05:00 81 98 05/13/19 04:00 80 99 05/13/19 03:00 74 99 05/13/19 02:21 75 18 99 05/13/19 02:19 75 18 99 05/13/19 02:01 74 98 05/13/19 01:31 74 99 05/13/19 01:01 74 98 05/13/19 00:31 74 98 05/13/19 00:01 75 98 05/13/19 00:00 79 05/12/19 23:00 78 97 05/12/19 22:00 77 98 05/12/19 21:48 78 19 97 05/12/19 21:30 78 97 05/12/19 21:00 77 98 05/12/19 20:30 78 97 05/12/19 20:19 84 05/12/19 20:00 80 98 Laboratory Results 05/13/19 05/13/19 05/13/19 Range/Units 05:43 03:58 03:58 WBC (4.8-10.8) K/uL RBC (4.7-6.1) M/uL Hgb (14.0-18.0) g/dL Hct (42-52) % MCV (80-100) fL MCH (25-34) pg MCHC (32-36) g/dL RDW Std Deviation (36.4-46.3) fL RDW Coeff of Jennifer (11.5-14.5) % Plt Count (130-400) K/uL MPV (7.4-10.4) fL Immature Gran % (Auto) % Neut % (Auto) % Lymph % (Auto) % [facility] % (Auto) % Eos % (Auto) % Baso % (Auto) % Immature Gran # (Auto) (0.00-0.02) K/uL Neut # (Auto) (1.4-6.5) K/uL Lymph # (Auto) (1.2-3.4) K/uL [facility] # (Auto) (0.11-0.59) K/uL Eos # (Auto) (0-0.5) K/uL Baso # (Auto) (0-0.2) K/uL PT (9.0-12.0) Seconds INR (0.9-1.1) APTT (21.0-31.0) Seconds PTT Ratio Sample Site Art Line POC pH 7.42 (7.35-7.45) POC pCO2 34 L (35-46) mmHg POC pO2 91 (80-95) mmHg POC HCO3 22 (19-24) sam/L POC Total CO2 23 L (24-31) mEq/l POC Base Excess -2.0 (-9-1.8) sam/L POC ABG O2 Sat 97.0 H (90-95) % Héctor Test NA O2 Delivery Device Ventilator POC O2 Rate 16 Minute Ventilation 11.1 POC FiO2 45 % Tidal Volume 550 PEEP 5 Sodium 140 (136-145) mmol/L Potassium 3.7 (3.5-5.1) mmol/L Chloride 111 H (98-107) mmol/L Carbon Dioxide 25 (21-32) mmol/L Anion Gap 4.0 (3-11) BUN 10 (7-18) mg/dl Creatinine 0.34 L (0.6-1.4) mg/dl Est Cr Clr Drug Dosing 285.4 ml/min Est GFR ( Amer) > 150.0 Est GFR (Non-Af Amer) 141.0 BUN/Creatinine Ratio 28.7 H (10-20) Glucose 136 H (70-99) mg/dl POC Glucose (70-99) Calcium 8.0 L (8.5-10.1) mg/dl Phosphorus 1.7 L D (2.5-4.9) mg/dl Magnesium 2.4 (1.8-2.4) mg/dl Total Bilirubin 0.5 (0.2-1) mg/dl Direct Bilirubin 0.2 (0-0.2) mg/dl AST 20 (15-37) U/L ALT 18 (12-78) U/L Alkaline Phosphatase 61 (45-117) U/L Troponin I (0-0.045) ng/ml Total Protein 6.0 L (6.4-8.2) gm/dl Albumin 2.2 L (3.4-5.0) gm/dl Lipase 37 L (73-393) U/L Procalcitonin 8.58 H (0-0.5) ng/ml Vancomycin Trough (See Comment) mcg/ml 05/13/19 05/13/19 05/12/19 Range/Units 03:58 03:58 23:16 WBC 25.39 H (4.8-10.8) K/uL RBC 3.86 L (4.7-6.1) M/uL Hgb 8.9 L (14.0-18.0) g/dL Hct 28.7 L (42-52) % MCV 74.4 L (80-100) fL MCH 23.1 L (25-34) pg MCHC 31.0 L (32-36) g/dL RDW Std Deviation 50.2 H (36.4-46.3) fL RDW Coeff of Jennifer 18.6 H (11.5-14.5) % Plt Count 276 (130-400) K/uL MPV 11.1 H (7.4-10.4) fL Immature Gran % (Auto) 3.5 % Neut % (Auto) 86.5 % Lymph % (Auto) 3.5 % [facility] % (Auto) 6.4 % Eos % (Auto) 0.0 % Baso % (Auto) 0.1 % Immature Gran # (Auto) 0.90 H (0.00-0.02) K/uL Neut # (Auto) 21.97 H (1.4-6.5) K/uL Lymph # (Auto) 0.88 L (1.2-3.4) K/uL [facility] # (Auto) 1.62 H (0.11-0.59) K/uL Eos # (Auto) 0.00 (0-0.5) K/uL Baso # (Auto) 0.02 (0-0.2) K/uL PT 11.3 (9.0-12.0) Seconds INR 1.1 (0.9-1.1) APTT 32.6 H (21.0-31.0) Seconds PTT Ratio 1.2 Sample Site POC pH (7.35-7.45) POC pCO2 (35-46) mmHg POC pO2 (80-95) mmHg POC HCO3 (19-24) sam/L POC Total CO2 (24-31) mEq/l POC Base Excess (-9-1.8) sam/L POC ABG O2 Sat (90-95) % Héctor Test O2 Delivery Device POC O2 Rate Minute Ventilation POC FiO2 % Tidal Volume PEEP Sodium (136-145) mmol/L Potassium (3.5-5.1) mmol/L Chloride (98-107) mmol/L Carbon Dioxide (21-32) mmol/L Anion Gap (3-11) BUN (7-18) mg/dl Creatinine (0.6-1.4) mg/dl Est Cr Clr Drug Dosing ml/min Est GFR ( Amer) Est GFR (Non-Af Amer) BUN/Creatinine Ratio (10-20) Glucose (70-99) mg/dl POC Glucose (70-99) Calcium (8.5-10.1) mg/dl Phosphorus (2.5-4.9) mg/dl Magnesium (1.8-2.4) mg/dl Total Bilirubin (0.2-1) mg/dl Direct Bilirubin (0-0.2) mg/dl AST (15-37) U/L ALT (12-78) U/L Alkaline Phosphatase (45-117) U/L Troponin I (0-0.045) ng/ml Total Protein (6.4-8.2) gm/dl Albumin (3.4-5.0) gm/dl Lipase (73-393) U/L Procalcitonin (0-0.5) ng/ml Vancomycin Trough 12.9 (See Comment) mcg/ml 05/12/19 05/12/19 05/12/19 Range/Units 22:57 14:35 12:08 WBC (4.8-10.8) K/uL RBC (4.7-6.1) M/uL Hgb (14.0-18.0) g/dL Hct (42-52) % MCV (80-100) fL MCH (25-34) pg MCHC (32-36) g/dL RDW Std Deviation (36.4-46.3) fL RDW Coeff of Jennifer (11.5-14.5) % Plt Count (130-400) K/uL MPV (7.4-10.4) fL Immature Gran % (Auto) % Neut % (Auto) % Lymph % (Auto) % [facility] % (Auto) % Eos % (Auto) % Baso % (Auto) % Immature Gran # (Auto) (0.00-0.02) K/uL Neut # (Auto) (1.4-6.5) K/uL Lymph # (Auto) (1.2-3.4) K/uL [facility] # (Auto) (0.11-0.59) K/uL Eos # (Auto) (0-0.5) K/uL Baso # (Auto) (0-0.2) K/uL PT (9.0-12.0) Seconds INR (0.9-1.1) APTT (21.0-31.0) Seconds PTT Ratio Sample Site POC pH (7.35-7.45) POC pCO2 (35-46) mmHg POC pO2 (80-95) mmHg POC HCO3 (19-24) sam/L POC Total CO2 (24-31) mEq/l POC Base Excess (-9-1.8) sam/L POC ABG O2 Sat (90-95) % Héctor Test O2 Delivery Device POC O2 Rate Minute Ventilation POC FiO2 % Tidal Volume PEEP Sodium (136-145) mmol/L Potassium (3.5-5.1) mmol/L Chloride (98-107) mmol/L Carbon Dioxide (21-32) mmol/L Anion Gap (3-11) BUN (7-18) mg/dl Creatinine (0.6-1.4) mg/dl Est Cr Clr Drug Dosing ml/min Est GFR ( Amer) Est GFR (Non-Af Amer) BUN/Creatinine Ratio (10-20) Glucose (70-99) mg/dl POC Glucose 151 H 159 H (70-99) Calcium (8.5-10.1) mg/dl Phosphorus (2.5-4.9) mg/dl Magnesium (1.8-2.4) mg/dl Total Bilirubin (0.2-1) mg/dl Direct Bilirubin (0-0.2) mg/dl AST (15-37) U/L ALT (12-78) U/L Alkaline Phosphatase (45-117) U/L Troponin I < 0.015 (0-0.045) ng/ml Total Protein (6.4-8.2) gm/dl Albumin (3.4-5.0) gm/dl Lipase (73-393) U/L Procalcitonin (0-0.5) ng/ml Vancomycin Trough (See Comment) mcg/ml Medications Administered Current Inpatient Medications Albuterol (Duoneb) 3 ml NEB Q4R [facility] Stop: 06/12/19 07:59 Last Admin: 05/13/19 07:29 Dose: 3 ml Documented by: Ascorbic Acid (Vitamin C) 500 mg NG BID [facility] Stop: 06/11/19 08:59 Last Admin: 05/13/19 08:09 Dose: 500 mg Documented by: Aspirin (Aspirin Chew) 81 mg NG QAM [facility] Stop: 06/11/19 08:59 Last Admin: 05/13/19 08:09 Dose: 81 mg Documented by: Dextrose (Dextrose 50%) 25 - 50 ml IV UD PRN; Protocol PRN Reason: Hypoglycemia Protocol Stop: 06/12/19 01:14 Ferrous Sulfate (Feosol) 325 mg NG BIDM [facility]ACHNA Stop: 06/11/19 07:59 Last Admin: 05/13/19 08:08 Dose: 325 mg Documented by: Gabapentin (Neurontin) 800 mg PO TID [facility] Stop: 06/11/19 08:59 Last Admin: 05/13/19 08:08 Dose: 800 mg Documented by: Glucagon (Glucagen) 1 mg SQ UD PRN; Protocol PRN Reason: Hypoglycemia Protocol Stop: 06/12/19 01:14 Glucose (Glucose 40%) 15 - 30 gm PO UD PRN; Protocol PRN Reason: Hypoglycemia Protocol Stop: 06/12/19 01:14 Glucose (Dex4 Glucose) 4 - 8 tabs PO UD PRN; Protocol PRN Reason: Hypoglycemia Protocol Stop: 06/12/19 01:14 Heparin Sodium (Beef Lung) (Heparin Sod 10 Unit/Ml Flush) 5 ml FLUSH PRN PRN PRN Reason: Flush Stop: 06/11/19 01:10 Heparin Sodium (Porcine) (Heparin Sodium (Porcine)) 5,000 units SQ Q12 RACHNA Stop: 06/11/19 08:59 Last Admin: 05/13/19 08:09 Dose: 5,000 units Documented by: Parenteral Electrolytes (Normosol-R) 1,000 mls @ 100 mls/hr IV .Q10H RACHNA Stop: 06/10/19 22:14 Last Infusion: 05/13/19 07:54 Dose: 100 mls/hr Documented by: Folic Acid 1 mg/ Syringe 10 mls @ 5 mls/min IV QAM [facility] Stop: 06/11/19 08:59 Last Admin: 05/13/19 08:09 Dose: 5 mls/min Documented by: Acetaminophen (Ofirmev) 1,000 mg in 100 mls @ 400 mls/hr IV Q8H PRN PRN Reason: Fever Stop: 06/10/19 23:40 Last Infusion: 05/12/19 01:45 Dose: Infused Documented by: Famotidine 20 mg/ Syringe 5 mls @ 2.5 mls/min IV Q12H [facility] Stop: 06/11/19 01:59 Last Admin: 05/13/19 02:13 Dose: 2.5 mls/min Documented by: Methylprednisolone 40 mg/ (Syringe) 0.64 mls @ 1.5 mls/min IV Q12H RACHNA Stop: 06/11/19 19:59 Last Admin: 05/13/19 08:09 Dose: 1.5 mls/min Documented by: Piperacillin Sod/Tazobactam (Sod 4.5 gm/ Dextrose) 120 mls @ 30 mls/hr IV Q8H [facility]; Protocol Stop: 05/18/19 11:59 Last Infusion: 05/13/19 07:54 Dose: Infused Documented by: Vancomycin HCl 1,250 mg/ (Sodium Chloride) 275 mls @ 125 mls/hr IV Q6 RACHNA Stop: 05/20/19 05:59 Last Infusion: 05/13/19 07:54 Dose: Infused Documented by: Thiamine HCl 300 mg/ Syringe 12 mls @ 2 mls/hr IV DAILY RACHNA Stop: 06/13/19 08:59 Phenobarbital Sodium 65 mg/ (Syringe) 1 mls @ 0.92 mls/min IV Q4H PRN PRN Reason: Agitation Stop: 06/12/19 09:14 Insulin Aspart (Novolog Flexpen) 0 units SC Q6 RACHNA Stop: 06/12/19 05:59 Last Admin: 05/13/19 05:34 Dose: Not Given Documented by: Ioversol (Optiray 320 125ml) 120 ml IV ONCE PRN PRN Reason: Interaction Checking Stop: 05/16/19 00:18 Miscellaneous (Carbohydrates For Hypoglycemia) 15 - 30 gm PO UD PRN PRN Reason: Hypoglycemia Treatment Stop: 06/12/19 01:14 Miscellaneous Information (Consult) 1 ea N/A UD PRN PRN Reason: Consult Stop: 06/10/19 22:12 Miscellaneous Information (Consult) 1 ea N/A UD PRN PRN Reason: Consult Stop: 06/10/19 22:12 Miscellaneous Information (Consult Glycemic Management Pharmacy) 1 ea N/A UD PRN PRN Reason: Consult Stop: 06/12/19 01:25 Sennosides (Senokot) 8.8 mg NG QAM PRN PRN Reason: Constipation Stop: 06/11/19 09:27 Simvastatin (Zocor) 40 mg NG PM RACHNA Stop: 06/11/19 20:59 Last Admin: 05/12/19 20:58 Dose: 40 mg Documented by: Ticagrelor (Brilinta) 90 mg PO BID RACHNA Stop: 06/11/19 08:59 Last Admin: 05/13/19 08:11 Dose: 90 mg Documented by: PG Care Time/CCT Total # of Minutes Spent Total Time Spent with Patient: Total time spent is greater than 50% in coordination of care (as documented) at patient's floor/unit and/or counseling patient: Resident Activity Tracking Resident Involvement: Resident Care Provided Care Provided: Adult Hospital Medicine
[2019-05-13] MEDS: GABAPENTIN 250 MG/5 ML 470 ML BTL PO SCH (08:08)
[2019-05-13] MEDS: FERROUS SULFATE 325 MG/7.4 ML UDP NG SCH (08:08)
[2019-05-13] MEDS: methylPREDNISolone 40 MG in SYRINGE 0 ML IV SCH ×2 (08:09→19:58)
[2019-05-13] MEDS: ASCORBIC ACID 500 MG TAB NG SCH (08:09)
[2019-05-13] MEDS: HEPARIN SOD 5,000 UNIT/0.5 ML VIAL SQ SCH ×2 (08:09→19:59)
[2019-05-13] MEDS: ASPIRIN 81 MG CHEW NG SCH (08:09)
[2019-05-13] MEDS: THIAMINE HCL 100 MG in SYRINGE 9 ML IV SCH (08:09)
[2019-05-13] MEDS: FOLIC ACID 1 MG in SYRINGE 9.8 ML IV SCH (08:09)
[2019-05-13] MEDS: fentaNYL citrate 100 MCG/2 ML VIAL IV PRN (08:11)
[2019-05-13] MEDS: TICAGRELOR 90 MG TAB PO SCH ×2 (08:11→19:59)
--- NOTE | 2019-05-13 08:20 | Pharmacy Report ---
Pharmacy Abx Dose Short Note - Date of Service May 13, 2019 - Assessment & Plan Assessment 58 year old M receiving IV Vancomycin and Zosyn for treatment of sepsis secondary to pneumonia Day # 3 of antimicrobial therapy. Plan Vancomycin * Trough level of 12.9 mcg/mL (appropriately drawn) is subtherapeutic. Even though this is an early level not reflective of steady state, patient will not achieve therapeutic concentrations on current regimen. Shorten dosing interval to target a higher trough due to critical illness. * Change to 1250 mg IV every 6 hours * Goal trough level for pneumonia : 15 to 20 mcg/mL * Trough or random level ordered for: 05/13/19 @ 4591 Pharmacy will continue to follow and will adjust dose/frequency as necessary. Thank you.
[2019-05-13] MEDS ORDERED: PROPOFOL IV EMULSION 10 MG/ML 20 ML VIAL IV STA (08:36)
[2019-05-13] MEDS ORDERED: fentaNYL citrate 100 MCG/2 ML VIAL IV STA (08:36)
--- NOTE | 2019-05-13 08:58 | Pharmacy Report ---
Glycemic Control Consultation - Date of Service May 13, 2019 - Scope Scope: Glycemic Pharmacist consulted by Dr Calzada as per automatic ICU protocol for hyperglycemia on 05/13 for glycemic control and to write orders per [facility] inpatient glycemic control protocol - Objective Weight: 93.8 kg Accuchecks BSG (last 24hrs): 05/12/19 05/12/19 05/13/19 12:08 22:57 03:58 Glucose 136 H POC Glucose 159 H 151 H Laboratory Data (last 24hrs): 05/13/19 03:58 Potassium 3.7 Carbon Dioxide 25 Anion Gap 4.0 Creatinine 0.34 L Est Cr Clr Drug Dosing 285.4 - Recent Pertinent Medications Outpatient Anti-diabetic Regimen: * n/a * A1c = unknown The patient is currently receiving: * Basal insulin: None at this time * Correctional Insulin: Novolog Correction per scale ACHS Goal Range: Low 110 mg/dL - High 180 mg/dL Correction Factor: 25 mg/dL/unit * Prandial insulin: Per carb ratio of 1 unit per 8 grams CHO consumed Risk Factors for Insulin Resistance: * Steroids: Solu-medrol 40 mg q12h (decreased from 60 mg q8h on 05/12) * Infection: on vanc/Zosyn for sepsis/pneumonia * Pressors: Levophed * IVF: Normosol R @ 100 cc/hr * Diet: NPO * Mechanical Ventilation - Assessment & Plan Assessment & Plan: ASSESSMENT: * 58 y/o male transferred from [facility] on 05/11 PM for respiratory failure, septic shock and pneumonia. ICU protocol for hyperglycemia was initiated last evening for BSGs > 150 mg/dL. Bolus insulin only was initiated since BSG at 0400 was 136 mg/dL. The patient does not have a reported history of diabetes and outpatient fill history reflects this. Will plan to continue with bolus insulin only for now and initiate basal and/or IV insulin if BSGs increase. * As of late this AM, patient has been extubated and pressors stopped. I'm anticipating insulin requirements to remain little to none with most stressors removed but with steroids still on board, will need to monitor closely. PLAN FOR INPATIENT GLYCEMIC CONTROL: * Continue Bolus insulin only as BSGs < 150 * NovoLog per scale ACHS or Q6hrs while NPO * Goal Range: Low 110 mg/dL - High 180 mg/dL * Correction Factor: 25 mg/dL/unit * Nutritional / Prandial insulin per carb ratio of 1 unit per 8 grams CHO consumed * If BSGs > 150 mg/dL x 2, initiate weight based basal dosing using stress level of 2 * Lantus 17 units BID * If BSG 220 mg/dL or above, start IV insulin infusion per severe stress protocol * Goal Range 110 - 180 mg/dl * In the critical care setting, continuous IV insulin infusion has been shown to be the best method for achieving glycemic targets. * No need for A1c unless BSGs become significantly elevated * Please note that the plan above was derived based on current level of insulin resistance and hospital stress. These recommendations are appropriate for inpatient admission only. Plan of care upon discharge will need to be reassessed to avoid potential outpatient hypo/hyperglycemia. Thank you.
--- NOTE | 2019-05-13 09:54 | Surgery Progress Note ---
Date of Service May 13, 2019 Assessment & Plan (1) Cholelithiasis: Cholelithiasis does not appear to be source of his sepsis/ symptoms. Once extubated, OK to advance diet as tolerated to low fat foods. will sign off - if abdominal symptoms develop, please reconsult. Thank you. Subjective Chart check only performed - plan appears to be to try extubation later today. Results & Data Vital Signs (Past 12 Hours) Vital Signs Pulse Pulse Resp BP Pulse Ox 05/13/19 09:33 81 24 107/74 94 05/13/19 09:31 81 21 93 05/13/19 09:30 82 19 102/70 95 05/13/19 09:28 81 21 104/68 93 05/13/19 09:26 81 22 104/67 93 05/13/19 09:20 83 22 93 05/13/19 09:10 83 21 96 05/13/19 09:01 84 93 05/13/19 08:50 82 94 05/13/19 08:40 73 95 05/13/19 08:31 75 95 05/13/19 08:25 16 05/13/19 08:23 84 134/79 99 05/13/19 08:20 73 91 05/13/19 08:10 75 97 05/13/19 08:01 75 97 05/13/19 07:50 75 97 05/13/19 07:40 73 98 05/13/19 07:36 73 16 98 05/13/19 07:34 73 18 98 05/13/19 07:31 73 98 05/13/19 07:21 73 99 05/13/19 07:10 73 99 05/13/19 07:00 74 98 05/13/19 06:51 74 98 05/13/19 06:45 75 98 05/13/19 05:14 83 22 99 05/13/19 05:00 81 98 05/13/19 04:00 80 99 05/13/19 03:00 74 99 05/13/19 02:21 75 18 99 05/13/19 02:19 75 18 99 05/13/19 02:01 74 98 05/13/19 01:31 74 99 05/13/19 01:01 74 98 05/13/19 00:31 74 98 05/13/19 00:01 75 98 05/13/19 00:00 79 05/12/19 23:00 78 97 05/12/19 22:00 77 98 Laboratory Results lft's normal wbc count elevated (on solumedrol)
[2019-05-13] MEDS ORDERED: THIAMINE HCL 200 MG in SODIUM CHLORIDE 0.9% 50 ML IV ONE (11:00)
[2019-05-13] MEDS ORDERED: Nursing to Pharmacy Communication ONE (11:41)
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
[2019-05-13] MEDS ORDERED: SENNA 8.6 MG TAB PO PRN (11:50)
--- NOTE | 2019-05-13 11:57 | Procedure Note ---
Procedure Note Date of Service May 13, 2019 Note Bronchoscopy was done at the bedside, the patient admitted to the hospital and intubated with bilateral pneumonia. Consent obtained from the mother over the phone. Agreed to the procedure. The patient was already intubated with #7 ET t ube. Monitored in the ICU bed 4 with ICU style of monitoring. Timeout performed by the nursing staff, appreciate assistance. The patient did require a total of 100 mg of propofol as well as 100 mics of fentanyl. Her bronchoscope passed through #7 ET tube, the findings as follows: 1. Large amount of thick secretions with a blood-tinged occluding the takeoff of the bronchus intermedius and its branches, suctioned all to clear. 2. Specimen was sent for culture. 3. Other subsegment also showed large amount of mucoid impaction mainly in the left lower lobe as well. Suctioned also clear. 4. No lidocaine was used. 5. Allocates of normal saline up to 40 mL were used. 6. Patient tolerated the procedure well, the bronchoscope retrieved from the airway. Appreciate the assistance of nursing staff and respiratory therapy. Thank you Coding CPT Codes Pulmonary/Thoracic - Pulmonary and Thoracic: Dx bronchoscopy/BAL ([id number])
[2019-05-13] MEDS: GABAPENTIN 800 MG TAB PO SCH ×2 (14:52→20:00)
[2019-05-13] MEDS: NORMOSOL-R 1,000 ML IV SCH (14:53)
[2019-05-13] MEDS: FERROUS SULFATE 325 MG TAB PO SCH (17:06)
[2019-05-13] MEDS ORDERED: VANCOMYCIN TROUGH ONE (17:30)
[2019-05-13] MEDS: ASCORBIC ACID 500 MG TAB PO SCH (20:00)
[2019-05-13] MEDS: SIMVASTATIN 40 MG TAB PO SCH (20:01)
[2019-05-14] MEDS: VANCOMYCIN HCL 1,250 MG in SODIUM CHLORIDE 0.9% 250 ML IV SCH ×5 (00:18→21:03)
[2019-05-14] MEDS: NORMOSOL-R 1,000 ML IV SCH (00:18)
[2019-05-14] MEDS: INSULIN ASPART 100 UNITS/ML 3 ML PEN SC SCH ×5 (00:27→21:05)
[2019-05-14] MEDS: FAMOTIDINE 20 MG in SYRINGE 3 ML IV SCH (02:36)
[2019-05-14] MEDS: PIPERACILLIN/TAZOBACTAM 4.5 GM in DEXTROSE 5% 100 ML IV SCH ×3 (03:06→19:40)
[2019-05-14] MEDS: ALBUT/IPRATROP 3MG/0.5MG NEB 3 ML VIAL NEB SCH ×6 (03:58→23:08)
[2019-05-14 05:17] LABS: Basophils # (auto) 0.01 K/uL (0-0.2); Basophils % (auto) 0.1 %; Hematocrit (blood only) 26.2 % (42-52); Hemoglobin 8.2 g/dL (14.0-18.0); Immature Granulocytes # (auto) 0.12 K/uL (0.00-0.02); Immature Granulocytes % (auto) 0.8 %; Lymphocytes # (auto) 0.73 K/uL (1.2-3.4); Lymphocytes % (auto) 4.6 %; Mean Corpuscular Hgb Conc 31.3 g/dL (32-36); Mean Platelet Volume 10.2 fL (7.4-10.4); Monocytes % (auto) 5.1 %; Neutrophils # (auto) 14.18 K/uL (1.4-6.5); Neutrophils % (auto) 89.4 %; Nucleated RBC # (auto) 0.04 K/uL (0-0); Nucleated RBC % (auto) 0.2 %; Platelet Count 220 K/uL (130-400); RDW Coefficient of Variation 18.5 % (11.5-14.5); RDW Standard Deviation 49.5 fL (36.4-46.3); Red Blood Count 3.54 M/uL (4.7-6.1); White Blood Count 15.84 K/uL (4.8-10.8)
[2019-05-14 05:29] LABS: Partial Thromboplastin Ratio 1.1; Partial Thromboplastin Time 29.5 Seconds (21.0-31.0); Prothrombin Time 10.7 Seconds (9.0-12.0)
[2019-05-14 05:36] LABS: Alanine Aminotransferase 16 U/L (12-78); Albumin Level 2.2 gm/dl (3.4-5.0); Aspartate Aminotransferase 12 U/L (15-37); BUN Creatinine Ratio 24.9 (10-20); Blood Urea Nitrogen 9 mg/dl (7-18); Carbon Dioxide 27 mmol/L (21-32); Chloride 111 mmol/L (98-107); Est GFR (African American) > 150.0; Est GFR (Non-African American) 136.1; Glucose 132 mg/dl (70-99); Magnesium 2.2 mg/dl (1.8-2.4); Potassium 3.4 mmol/L (3.5-5.1); Sodium 142 mmol/L (136-145)
[2019-05-14 05:40] LABS: Alkaline Phosphatase 62 U/L (45-117); Bilirubin Direct 0.2 mg/dl (0-0.2); Bilirubin,Total 0.5 mg/dl (0.2-1); Total Protein 5.8 gm/dl (6.4-8.2)
--- NOTE | 2019-05-14 07:42 | XRay Report ---
XR chest 1V portable HISTORY: Shortness of breath. Follow-up. COMPARISON: Chest 05/13/2019. FINDINGS: Right jugular central venous catheter terminates at the SVC. No pneumothorax. The heart rem ains enlarged. Pulmonary edema persists. Small bilateral pleural effusions and bibasilar airspace opa cities have slightly improved. IMPRESSION: Slight improvement in the small bilateral pleural effusions and bibasilar airspace opacities. Electronically signed by: Juancarlos Vela M.D. 05/14/2019 7:41 AM
[2019-05-14] MEDS ORDERED: POTASSIUM CHLORIDE 20 MEQ TABCR PO STA (08:08)
[2019-05-14] MEDS: THIAMINE HCL 300 MG in 0.9 % SODIUM CHLORIDE 100 ML IV SCH (08:48)
[2019-05-14] MEDS: FOLIC ACID 1 MG in SYRINGE 9.8 ML IV SCH (08:48)
[2019-05-14] MEDS: methylPREDNISolone 40 MG in SYRINGE 0 ML IV SCH (08:48)
[2019-05-14] MEDS: ASCORBIC ACID 500 MG TAB PO SCH ×2 (08:49→20:03)
[2019-05-14] MEDS: ASPIRIN 81 MG ECTAB PO SCH (08:50)
[2019-05-14] MEDS: GABAPENTIN 800 MG TAB PO SCH ×3 (08:50→20:03)
[2019-05-14] MEDS: TICAGRELOR 90 MG TAB PO SCH ×2 (08:50→20:03)
[2019-05-14] MEDS: FERROUS SULFATE 325 MG TAB PO SCH ×2 (08:51→16:21)
[2019-05-14] MEDS ORDERED: THIAMINE HCL 300 MG in SYRINGE 9 ML IV SCH (09:00)
--- NOTE | 2019-05-14 09:47 | Critical Care Progress Note ---
Date of Service May 14, 2019 Assessment & Plan (1) Acute respiratory failure: Neuro- awake alert ?confused. watch for signs of alcohol withdrawal CV- HD stable now. septic shock resolved. CAD aspirin, ticagrelor, simvastatin Pulmonary- acute hypoxic respiratory failure due to pneumonia possible aspiration. extubated yesterday. sat well. stridor at times. ?related to intubation vs ?tracheal stenosis from prior. continue steroids until stridor improved. continue chest PT ID- pneumonia. health care associated continue vancomycin, piperacillin- tazobactam. complete 7 days of abx Renal- cr ok. hypokalemia will replace GI- diet as tolerated Heme- leukocytosis improving. heparin proph Endocrine- blood sugars controlled Dispo- ok to transfer out of ICU after ENT eval (2) Aspiration pneumonia: (3) Pneumonia of both lower lobes: (4) Septic shock: Subjective breathing improving per pt. He has no complaints this morning yesteday post extubation had some stridor. per RN when breathing harder has some upper airway sounds Physical Exam Physical Exam: Constitutional: Comfortable NAD HEENT: normocephalic atraumatic. MMM. no cervical lymphadenopathy. RIJ in place. no stridor currently CV: RRR nl s1,s2 no murmurs rubs or gallops Lungs: bronchial breath sounds bilaterally. no accessory muscle use Abd: soft nontender nondistended. normal bowel sounds Ext: no edema. no cyanosis, no clubbing Skin: warm dry Neuro: alert and awake but maybe slightly confused. moving all extremities Psych: flat affect Results & Data Vital Signs (Past 12 Hours) Vital Signs Temp Pulse Pulse Resp BP Pulse Ox 05/14/19 09:00 95 H 26 H 95 05/14/19 08:01 97 H 26 H 98 05/14/19 08:00 36.6 C 97 H 31 H 137/78 98 05/14/19 07:35 96 H 18 95 05/14/19 07:01 89 24 150/91 H 87 L 05/14/19 06:01 87 19 137/83 97 05/14/19 05:00 93 H 30 H 123/71 93 05/14/19 04:30 92 H 24 90 05/14/19 04:01 88 19 137/88 100 05/14/19 04:00 89 19 98 05/14/19 03:59 87 22 96 05/14/19 03:30 36.6 C 86 24 96 05/14/19 03:21 90 23 94 05/14/19 03:11 87 27 H 96 05/14/19 03:00 87 23 135/88 95 05/14/19 02:50 89 14 94 05/14/19 02:41 87 22 94 05/14/19 02:30 86 17 95 05/14/19 02:20 86 23 95 05/14/19 02:11 87 22 94 05/14/19 02:01 87 25 H 133/84 97 05/14/19 02:00 87 23 95 05/14/19 01:50 89 21 95 05/14/19 01:41 89 20 97 05/14/19 01:30 90 18 95 05/14/19 01:20 89 22 96 05/14/19 01:11 90 16 96 05/14/19 01:01 91 H 19 113/78 94 05/14/19 01:00 92 H 15 83 L 05/14/19 00:50 91 H 19 95 05/14/19 00:40 90 20 94 05/14/19 00:31 91 H 21 92 05/14/19 00:20 94 H 25 H 93 05/14/19 00:10 96 H 29 H 95 05/14/19 00:01 36.6 C 97 H 25 H 97 05/14/19 00:00 99 H 26 H 146/94 H 94 05/13/19 23:50 92 05/13/19 23:40 96 H 12 95 05/13/19 23:31 92 H 22 100 05/13/19 23:23 91 H 22 94 05/13/19 23:20 90 21 93 05/13/19 23:10 90 21 92 05/13/19 23:01 95 H 14 91 05/13/19 22:50 96 H 22 93 05/13/19 22:40 99 H 15 91 05/13/19 22:31 100 H 19 93 05/13/19 22:21 99 H 24 94 05/13/19 22:10 108 H 17 96 05/13/19 22:01 97 H 24 97 05/13/19 22:00 97 H 25 H 135/84 98 05/13/19 21:51 96 H 19 92 Laboratory Results Laboratory Results - last 24 hr 05/12/19 05/13/19 05/13/19 04:01 12:26 17:04 WBC RBC Hgb Hct MCV MCH MCHC RDW Std Deviation RDW Coeff of Jennifer Plt Count MPV Immature Gran % (Auto) Neut % (Auto) Lymph % (Auto) [place] % (Auto) Eos % (Auto) Baso % (Auto) Immature Gran # (Auto) Neut # (Auto) Lymph # (Auto) [place] # (Auto) Eos # (Auto) Baso # (Auto) Absolute Nucleated RBC Nucleated RBC % (auto) PT INR APTT PTT Ratio Sodium Potassium Chloride Carbon Dioxide Anion Gap BUN Creatinine Est Cr Clr Drug Dosing Est GFR ( Amer) Est GFR (Non-Af Amer) BUN/Creatinine Ratio Glucose POC Glucose 138 H 161 H Calcium Phosphorus Magnesium Total Bilirubin Direct Bilirubin AST ALT Alkaline Phosphatase Total Protein Albumin Lipase Procalcitonin Vancomycin Trough Crossmatch See Detail 05/13/19 05/14/19 05/14/19 17:34 00:24 04:53 WBC 15.84 H RBC 3.54 L Hgb 8.2 L Hct 26.2 L MCV 74.0 L MCH 23.2 L MCHC 31.3 L RDW Std Deviation 49.5 H RDW Coeff of Jennifer 18.5 H Plt Count 220 MPV 10.2 Immature Gran % (Auto) 0.8 Neut % (Auto) 89.4 Lymph % (Auto) 4.6 [place] % (Auto) 5.1 Eos % (Auto) 0.0 Baso % (Auto) 0.1 Immature Gran # (Auto) 0.12 H Neut # (Auto) 14.18 H Lymph # (Auto) 0.73 L [place] # (Auto) 0.80 H Eos # (Auto) 0.00 Baso # (Auto) 0.01 Absolute Nucleated RBC 0.04 H Nucleated RBC % (auto) 0.2 PT INR APTT PTT Ratio Sodium Potassium Chloride Carbon Dioxide Anion Gap BUN Creatinine Est Cr Clr Drug Dosing Est GFR ( Amer) Est GFR (Non-Af Amer) BUN/Creatinine Ratio Glucose POC Glucose 141 H Calcium Phosphorus Magnesium Total Bilirubin Direct Bilirubin AST ALT Alkaline Phosphatase Total Protein Albumin Lipase Procalcitonin Vancomycin Trough 19.3 Crossmatch 05/14/19 05/14/19 05/14/19 04:53 04:53 04:53 WBC RBC Hgb Hct MCV MCH MCHC RDW Std Deviation RDW Coeff of Jennifer Plt Count MPV Immature Gran % (Auto) Neut % (Auto) Lymph % (Auto) [place] % (Auto) Eos % (Auto) Baso % (Auto) Immature Gran # (Auto) Neut # (Auto) Lymph # (Auto) [place] # (Auto) Eos # (Auto) Baso # (Auto) Absolute Nucleated RBC Nucleated RBC % (auto) PT 10.7 INR 1.0 APTT 29.5 PTT Ratio 1.1 Sodium 142 Potassium 3.4 L Chloride 111 H Carbon Dioxide 27 Anion Gap 4.0 BUN 9 Creatinine 0.37 L Est Cr Clr Drug Dosing 259.0 Est GFR ( Amer) > 150.0 Est GFR (Non-Af Amer) 136.1 BUN/Creatinine Ratio 24.9 H Glucose 132 H POC Glucose Calcium 8.0 L Phosphorus 2.0 L Magnesium 2.2 Total Bilirubin 0.5 Direct Bilirubin 0.2 AST 12 L ALT 16 Alkaline Phosphatase 62 Total Protein 5.8 L Albumin 2.2 L Lipase 107 Procalcitonin 4.97 H Vancomycin Trough Crossmatch
[2019-05-14] MEDS ORDERED: VANCOMYCIN TROUGH ONE (11:30)
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
[2019-05-14] MEDS ORDERED: OXYMETAZOLINE 0.05% 30 ML BTL ONE (12:03)
--- NOTE | 2019-05-14 12:11 | ENT Consultation ---
Date of Consultation May 14, 2019 Assessment & Plan (1) Dysphonia: I would recommend 10 mg IV Dexamethasone q 8 hours for 24-36 hours to help with swelling. Patient should also be on an antacid. 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 Would recommend transfer to a tertiary care center where DL with laser excision or possible balloon dilation of his SG is available with kenalog and or mitomycin C injection. Patient is currently stable with just mild expiratory stridor, but can consider Heliox if patient's condition worsens along with scheduled steroids. If intubation required would recommend using a 5.0 ETT or smaller. Would be a straight forward fiberoptic intubation as I had an excellent view of the whole glottis with the scope. Present on Admission?: Yes History of Present Illness Attending Physician: Nallely Saucedo MD Hx of traumatic intubation at [facility] with concern for continued occasional stridor. Patient denies dyspnea. No dysphagia. Some dysphonia. Allergies Allergy/AdvReac Type Severity Reaction Status Date / Time No Known Allergies Allergy Unverified 05/11/19 22:09 Patient History Social History Preferred Language: Estonian Communication Ability: Effective Communication Ability Comment: stutters after stroke Gate Guard Required: No Beliefs That Will Affect Care: None marital status: / Current Living Situation: Alone Current Living Situation Comment: lives in [facility] Other Information That Helps Us Care for You: Yes (health aides total 5 hrs/day - 5 days/week) Feels Safe at Home: Yes Safety Concerns: Feels Safe At This Time Smoking Status: Never smoker Hx Alcohol Use: Yes Alcohol type: beer Hx Substance Use: Yes substance use type: marijuana Last Used Substance Other:: unknown by family Review of Systems Review of Systems: All systems reviewed & are unremarkable except as noted in HPI & below Physical Exam ENMT: external ear and nose normal, oropharynx normal Flexible Nasopharyngoscopy was performed after phenylephrine spray was applied. Nasopharynx and oropharynx are wnl. Patients vocal cords are mobile. Patient does have what appears to be scarring of his subglottis leaving him with approximately 50-70% of his normal airway. Respiratory: + stridor (expiratory and minimal) Results & Data Vital Signs (Past 12 Hours) Vital Signs Temp Pulse Pulse Resp BP Pulse Ox 05/14/19 11:07 90 16 95 05/14/19 09:00 95 H 26 H 95 05/14/19 08:01 97 H 26 H 98 05/14/19 08:00 36.6 C 97 H 31 H 137/78 98 05/14/19 07:35 96 H 18 95 05/14/19 07:01 89 24 150/91 H 87 L 05/14/19 06:01 87 19 137/83 97 05/14/19 05:00 93 H 30 H 123/71 93 05/14/19 04:30 92 H 24 90 05/14/19 04:01 88 19 137/88 100 05/14/19 04:00 89 19 98 05/14/19 03:59 87 22 96 05/14/19 03:30 36.6 C 86 24 96 05/14/19 03:21 90 23 94 05/14/19 03:11 87 27 H 96 05/14/19 03:00 87 23 135/88 95 05/14/19 02:50 89 14 94 05/14/19 02:41 87 22 94 05/14/19 02:30 86 17 95 05/14/19 02:20 86 23 95 05/14/19 02:11 87 22 94 05/14/19 02:01 87 25 H 133/84 97 05/14/19 02:00 87 23 95 05/14/19 01:50 89 21 95 05/14/19 01:41 89 20 97 05/14/19 01:30 90 18 95 05/14/19 01:20 89 22 96 05/14/19 01:11 90 16 96 05/14/19 01:01 91 H 19 113/78 94 05/14/19 01:00 92 H 15 83 L 05/14/19 00:50 91 H 19 95 05/14/19 00:40 90 20 94 05/14/19 00:31 91 H 21 92 05/14/19 00:20 94 H 25 H 93 05/14/19 00:10 96 H 29 H 95
--- NOTE | 2019-05-14 12:39 | Pharmacy Report ---
Pharmacy Abx Dose Short Note - Date of Service May 14, 2019 - Assessment & Plan Assessment 58 year old M receiving vancomycin/zosyn for treatment of pneumonia- sputum MRSA +, Bronch S. aureus (sensitivities pending) Day # 4 of antimicrobial therapy. Plan Vancomycin * Trough level of 21.1 mcg/mL is supratherapeutic * ke estimate .114, will reduce frequency to every 8 hours, this will predict a trough within goal range * Change to 1250 mg q8H * Goal trough level 15-20 * Trough ordered for 05/15 @ 1230 Pharmacy will continue to follow and will adjust dose/frequency as necessary. Thank you.
[2019-05-14] MEDS: HEPARIN SOD 5,000 UNIT/0.5 ML VIAL SQ SCH ×2 (14:05→21:04)
[2019-05-14] MEDS: DEXAMETHASONE SOD PHOSPHATE 10 MG in SYRINGE 0 ML IV SCH (16:21)
[2019-05-14] MEDS: SIMVASTATIN 40 MG TAB PO SCH (20:03)
[2019-05-14] MEDS ORDERED: VANCOMYCIN HCL 1,250 MG in SODIUM CHLORIDE 0.9% 250 ML IV SCH (21:00)
[2019-05-15] MEDS: DEXAMETHASONE SOD PHOSPHATE 10 MG in SYRINGE 0 ML IV SCH ×3 (00:10→16:53)
[2019-05-15] MEDS: ALBUT/IPRATROP 3MG/0.5MG NEB 3 ML VIAL NEB SCH ×6 (03:12→23:10)
[2019-05-15] MEDS: PIPERACILLIN/TAZOBACTAM 4.5 GM in DEXTROSE 5% 100 ML IV SCH ×3 (04:22→19:54)
[2019-05-15] MEDS: VANCOMYCIN HCL 1,250 MG in SODIUM CHLORIDE 0.9% 250 ML IV SCH ×3 (04:25→21:18)
[2019-05-15] MEDS: HEPARIN SOD 5,000 UNIT/0.5 ML VIAL SQ SCH ×3 (05:53→21:11)
[2019-05-15 07:23] LABS: Hematocrit (blood only) 26.9 % (42-52); Hemoglobin 8.5 g/dL (14.0-18.0); Mean Corpuscular Hgb Conc 31.6 g/dL (32-36); Mean Corpuscular Volume 73.5 fL (80-100); Mean Platelet Volume 10.5 fL (7.4-10.4); Nucleated RBC # (auto) 0.05 K/uL (0-0); Nucleated RBC % (auto) 0.3 %; Platelet Count 269 K/uL (130-400); RDW Coefficient of Variation 18.5 % (11.5-14.5); RDW Standard Deviation 49.3 fL (36.4-46.3); Red Blood Count 3.66 M/uL (4.7-6.1); White Blood Count 15.89 K/uL (4.8-10.8)
[2019-05-15 07:53] LABS: BUN Creatinine Ratio 26.6 (10-20); Blood Urea Nitrogen 9 mg/dl (7-18); Calcium 8.1 mg/dl (8.5-10.1); Carbon Dioxide 27 mmol/L (21-32); Chloride 108 mmol/L (98-107); Creatinine Clr Calc Pharmacy 273.8 ml/min; Est GFR (African American) > 150.0; Est GFR (Non-African American) 139.3; Glucose 109 mg/dl (70-99); Potassium 3.7 mmol/L (3.5-5.1); Sodium 140 mmol/L (136-145)
[2019-05-15 08:01] LABS: ALC (manual) 1.53 K/uL (1.2-3.4); Anisocytosis Present; Hypochromasia Present; Lymphocytes # (manual) 1.53 K/uL (1.2-3.4); Lymphocytes % (manual) 9.6 %; Myelocytes # (manual) 0.14 K/uL (0-0); Myelocytes % (manual) 0.9 %; Neutrophils % (manual) 88.6 %; Promyelocytes # (manual) 0.14 K/uL (0-0); Promyelocytes % (manual) 0.9 %
[2019-05-15] MEDS: FOLIC ACID 1 MG in SYRINGE 9.8 ML IV SCH (09:48)
[2019-05-15] MEDS: GABAPENTIN 800 MG TAB PO SCH ×3 (09:48→21:07)
[2019-05-15] MEDS: ASCORBIC ACID 500 MG TAB PO SCH ×2 (09:49→21:07)
[2019-05-15] MEDS: THIAMINE HCL 300 MG in 0.9 % SODIUM CHLORIDE 100 ML IV SCH (09:49)
[2019-05-15] MEDS: ASPIRIN 81 MG ECTAB PO SCH (09:50)
[2019-05-15] MEDS: TICAGRELOR 90 MG TAB PO SCH ×2 (09:50→21:57)
[2019-05-15] MEDS: FERROUS SULFATE 325 MG TAB PO SCH ×2 (09:50→16:54)
[2019-05-15] MEDS: INSULIN ASPART 100 UNITS/ML 3 ML PEN SC SCH ×4 (09:52→21:08)
--- NOTE | 2019-05-15 10:41 | Pharmacy Report ---
Pharmacy Glycemic Short Note 2 - Date of Service May 15, 2019 - Glycemic Short BSG Results (Last 24 hours): 05/14/19 05/14/19 05/14/19 11:41 16:34 21:01 Glucose POC Glucose 120 H 128 H 157 H 05/15/19 05/15/19 06:37 07:01 Glucose 109 H POC Glucose 134 H OUTPATIENT ANTIDIABETIC REGIMEN: * N/A * A1c = ? ASSESSMENT: 05/15/19 * BSGs well controlled over the last 24 hrs with Novolog correction and prandial insulin * Fasting BSG 134 this AM w/ no basal insulin on board * Steroid changed to dexamethasone yesterday in a greater glucocorticoid dose than what Solu-medrol was providing * Will continue current insulin orders and follow BSG pattern today given the increase in steroid dose yesterday PLAN FOR INPATIENT GLYCEMIC CONTROL: * Basal insulin * none * Bolus insulin * NovoLog per scale ACHS or Q6hrs while NPO * Goal Range: Low 110 mg/dL - High 180 mg/dL * Correction Factor: 25 mg/dL/unit * Nutritional / Prandial insulin per carb ratio of 1 unit per 12 grams CHO consumed
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
[2019-05-15] MEDS ORDERED: VANCOMYCIN TROUGH ONE (12:30)
[2019-05-15] MEDS: SIMVASTATIN 40 MG TAB PO SCH (21:07)
[2019-05-16] MEDS ORDERED: DiphenhydrAMINE HCL 50 MG/ML VIAL IV STA (00:12)
[2019-05-16] MEDS: DEXAMETHASONE SOD PHOSPHATE 10 MG in SYRINGE 0 ML IV SCH ×2 (00:15→08:08)
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
[2019-05-16] MEDS: PIPERACILLIN/TAZOBACTAM 4.5 GM in DEXTROSE 5% 100 ML IV SCH ×3 (03:49→20:09)
[2019-05-16] MEDS: ALBUT/IPRATROP 3MG/0.5MG NEB 3 ML VIAL NEB SCH ×6 (03:53→23:13)
[2019-05-16] MEDS: VANCOMYCIN HCL 1,250 MG in SODIUM CHLORIDE 0.9% 250 ML IV SCH ×3 (05:25→20:09)
[2019-05-16] MEDS: HEPARIN SOD 5,000 UNIT/0.5 ML VIAL SQ SCH ×3 (05:27→22:19)
[2019-05-16 06:09] LABS: Hematocrit (blood only) 31.2 % (42-52); Hemoglobin 9.7 g/dL (14.0-18.0); Mean Corpuscular Hgb Conc 31.1 g/dL (32-36); Mean Corpuscular Volume 74.3 fL (80-100); Mean Platelet Volume 10.3 fL (7.4-10.4); Nucleated RBC # (auto) 0.11 K/uL (0-0); Nucleated RBC % (auto) 0.6 %; Platelet Count 279 K/uL (130-400); RDW Coefficient of Variation 18.4 % (11.5-14.5); RDW Standard Deviation 48.8 fL (36.4-46.3)
[2019-05-16 06:40] LABS: BUN Creatinine Ratio 19.5 (10-20); Calcium 8.6 mg/dl (8.5-10.1); Est GFR (African American) 148.3; Potassium 3.3 mmol/L (3.5-5.1)
[2019-05-16 06:49] LABS: ALC (manual) 1.64 K/uL (1.2-3.4); Hypochromasia Present; Lymphocytes # (manual) 1.64 K/uL (1.2-3.4); Lymphocytes % (manual) 8.7 %; Metamyelocytes # (manual) 1.32 K/uL (0-0); Monocytes # (manual) 0.17 K/uL (0.11-0.59); Monocytes % (manual) 0.9 %; Myelocytes # (manual) 1.97 K/uL (0-0); Myelocytes % (manual) 10.4 %
[2019-05-16] MEDS: ASPIRIN 81 MG ECTAB PO SCH (08:09)
[2019-05-16] MEDS: FOLIC ACID 1 MG TAB PO SCH (08:09)
[2019-05-16] MEDS: THIAMINE HCL 100 MG TAB PO SCH (08:09)
[2019-05-16] MEDS: GABAPENTIN 800 MG TAB PO SCH ×3 (08:09→20:26)
[2019-05-16] MEDS: FERROUS SULFATE 325 MG TAB PO SCH ×2 (08:09→18:03)
[2019-05-16] MEDS: ASCORBIC ACID 500 MG TAB PO SCH ×2 (08:10→20:24)
[2019-05-16] MEDS: INSULIN ASPART 100 UNITS/ML 3 ML PEN SC SCH ×4 (08:12→20:42)
--- NOTE | 2019-05-16 09:26 | Pharmacy Report ---
Pharmacy Abx Dose Short Note - Date of Service May 16, 2019 - Assessment & Plan Assessment * 58 year old M receiving VANCOMYCIN IV for treatment of MRSA pneumonia * Day # 6 of antimicrobial therapy * MRSA growing in 2 sputum cultures (one with VALENTÍN 2, one with VALENTÍN 1) * Afebrile, Procal trending down (247-->18.6-->8.6-->4.97-->2.24), WBC remains elevated however pt is receiving IV dexamethasone * VSS, still sat in low 90s * Renal fxn stable Plan Vancomycin * Trough level of 15.3 mcg/mL is therapeutic. Level was drawn at the appropriate time and prior doses hung per schedule as well. * Continue dose of 1250 mg IV every 8 hours * Goal trough level for pneumonia : 15 to 20 mcg/mL * Will recheck trough level tomorrow to confirm target still met with Q 8 hrs dosing. Pharmacy will continue to follow and will adjust dose/frequency as necessary. Thank you.
[2019-05-16] MEDS: TICAGRELOR 90 MG TAB PO SCH ×2 (09:36→20:24)
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
[2019-05-16] MEDS: DOXYCYCLINE HYCLATE 100 MG CAP PO SCH (20:26)
[2019-05-16] MEDS: SIMVASTATIN 40 MG TAB PO SCH (20:26)
[2019-05-16] MEDS: ACETAMINOPHEN 1,000 MG/100 ML VIAL IV PRN (23:55)
[2019-05-17] MEDS: ALBUT/IPRATROP 3MG/0.5MG NEB 3 ML VIAL NEB SCH ×6 (03:26→23:02)
[2019-05-17] MEDS: PIPERACILLIN/TAZOBACTAM 4.5 GM in DEXTROSE 5% 100 ML IV SCH (04:17)
[2019-05-17] MEDS ORDERED: VANCOMYCIN TROUGH ONE (04:30)
[2019-05-17 04:44] LABS: Mean Corpuscular Hgb Conc 31.4 g/dL (32-36); Mean Platelet Volume 9.7 fL (7.4-10.4); Nucleated RBC # (auto) 0.13 K/uL (0-0); Nucleated RBC % (auto) 0.6 %; Platelet Count 298 K/uL (130-400)
[2019-05-17 05:07] LABS: BUN Creatinine Ratio 22.1 (10-20); Calcium 8.1 mg/dl (8.5-10.1); Creatinine Clr Calc Pharmacy 215.9 ml/min; Est GFR (Non-African American) 126.8; Potassium 3.3 mmol/L (3.5-5.1)
[2019-05-17 05:32] LABS: ALC (manual) 1.82 K/uL (1.2-3.4); Anisocytosis Present; Hematocrit (blood only) 30.3 % (42-52); Hemoglobin 9.5 g/dL (14.0-18.0); Hypochromasia Present; Lymphocytes # (manual) 1.82 K/uL (1.2-3.4); Lymphocytes % (manual) 8.6 %; Mean Corpuscular Volume 73.4 fL (80-100); Metamyelocytes # (manual) 1.65 K/uL (0-0); Metamyelocytes % (manual) 7.8 %; Monocytes # (manual) 1.65 K/uL (0.11-0.59); Monocytes % (manual) 7.8 %; Myelocytes # (manual) 2.01 K/uL (0-0); Myelocytes % (manual) 9.5 %; Neutrophils % (manual) 66.3 %; Polychromasia 1+; RDW Coefficient of Variation 18.6 % (11.5-14.5); RDW Standard Deviation 48.2 fL (36.4-46.3); Red Blood Count 4.13 M/uL (4.7-6.1); White Blood Count 21.11 K/uL (4.8-10.8)
[2019-05-17] MEDS: VANCOMYCIN HCL 1,250 MG in SODIUM CHLORIDE 0.9% 250 ML IV SCH (05:54)
[2019-05-17] MEDS: HEPARIN SOD 5,000 UNIT/0.5 ML VIAL SQ SCH ×3 (05:55→21:38)
[2019-05-17] MEDS: THIAMINE HCL 100 MG TAB PO SCH (08:36)
[2019-05-17] MEDS: ASPIRIN 81 MG ECTAB PO SCH (08:36)
[2019-05-17] MEDS: AMOXICILLIN/CLAVULANATE 875 MG TAB PO SCH ×2 (08:36→17:41)
[2019-05-17] MEDS: TICAGRELOR 90 MG TAB PO SCH ×2 (08:36→20:32)
[2019-05-17] MEDS: ASCORBIC ACID 500 MG TAB PO SCH ×2 (08:36→20:32)
[2019-05-17] MEDS: FOLIC ACID 1 MG TAB PO SCH (08:36)
[2019-05-17] MEDS: DOXYCYCLINE HYCLATE 100 MG CAP PO SCH ×2 (08:37→20:30)
[2019-05-17] MEDS: GABAPENTIN 800 MG TAB PO SCH ×3 (08:37→20:30)
[2019-05-17] MEDS: FERROUS SULFATE 325 MG TAB PO SCH ×2 (08:37→17:42)
[2019-05-17] MEDS: POTASSIUM CHLORIDE PWD 20 MEQ PACK PO SCH ×2 (08:39→20:29)
[2019-05-17] MEDS: INSULIN ASPART 100 UNITS/ML 3 ML PEN SC SCH ×4 (08:50→20:45)
[2019-05-17] MEDS ORDERED: ALBUT/IPRATROP 3MG/0.5MG NEB 3 ML VIAL NEB ONE (09:06)
--- NOTE | 2019-05-17 09:47 | Pharmacy Report ---
Pharmacy Glycemic Short Note 2 - Date of Service May 17, 2019 - Glycemic Short BSG Results (Last 24 hours): 05/16/19 05/16/19 05/16/19 11:38 17:14 20:27 Glucose POC Glucose 131 H 121 H 128 H 05/17/19 05/17/19 04:21 08:45 Glucose 94 POC Glucose 101 H OUTPATIENT ANTIDIABETIC REGIMEN: * N/A * A1c = ? ASSESSMENT: 05/17/19 * Blood sugar at goal, steroids discontinued yesterday, IV antibiotics --> PO * no longer needs carb ratio 05/15/19 * BSGs well controlled over the last 24 hrs with Novolog correction and prandial insulin * Fasting BSG 134 this AM w/ no basal insulin on board * Steroid changed to dexamethasone yesterday in a greater glucocorticoid dose than what Solu-medrol was providing * Will continue current insulin orders and follow BSG pattern today given the increase in steroid dose yesterday PLAN FOR INPATIENT GLYCEMIC CONTROL: * Basal insulin * none * Bolus insulin * NovoLog per scale ACHS or Q6hrs while NPO * Goal Range: Low 110 mg/dL - High 180 mg/dL * Correction Factor: 25 mg/dL/unit * Discontinue - Nutritional / Prandial insulin per carb ratio
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
[2019-05-17] MEDS: SIMVASTATIN 40 MG TAB PO SCH (20:33)
[2019-05-18] MEDS: ALBUT/IPRATROP 3MG/0.5MG NEB 3 ML VIAL NEB SCH ×6 (04:04→23:59)
[2019-05-18] MEDS ORDERED: ALBUT/IPRATROP 3MG/0.5MG NEB 3 ML VIAL NEB ONE (05:20)
[2019-05-18] MEDS: HEPARIN SOD 5,000 UNIT/0.5 ML VIAL SQ SCH ×3 (06:02→20:45)
[2019-05-18 06:27] LABS: Hematocrit (blood only) 36.7 % (42-52); Hemoglobin 11.5 g/dL (14.0-18.0); Mean Corpuscular Hgb Conc 31.3 g/dL (32-36); Mean Corpuscular Volume 73.5 fL (80-100); Mean Platelet Volume 10.1 fL (7.4-10.4); Nucleated RBC # (auto) 0.09 K/uL (0-0); Nucleated RBC % (auto) 0.4 %; Platelet Count 315 K/uL (130-400); RDW Coefficient of Variation 19.1 % (11.5-14.5); RDW Standard Deviation 48.5 fL (36.4-46.3); Red Blood Count 4.99 M/uL (4.7-6.1); White Blood Count 24.18 K/uL (4.8-10.8)
--- NOTE | 2019-05-18 06:27 | XRay Report ---
XR chest 1V portable CLINICAL HISTORY: Interval eval, some SOB dyspnea COMPARISON STUDY: 05/14/2019 FINDINGS: Moderate stable cardiomegaly. Interval increase in density left base most likely secondary to a left effusion. Stable prominent pulmonary vasculature. Right hemidiaphragm is smooth. IMPRESSION: Findings of congestive failure slightly increased in prominence from the prior study. Mi ld increase in volume of the left effusion The above report was generated using voice recognition software. It may contain grammatical, syntax or spelling errors. Electronically signed by: Avi Feliz M.D. 05/18/2019 6:26 AM
[2019-05-18 06:53] LABS: ALC (manual) 2.95 K/uL (1.2-3.4); Anisocytosis Present; Eosinophils # (manual) 1.04 K/uL (0-0.5); Eosinophils % (manual) 4.3 %; Hypochromasia Present; Lymphocytes # (manual) 2.95 K/uL (1.2-3.4); Lymphocytes % (manual) 12.2 %; Metamyelocytes # (manual) 1.26 K/uL (0-0); Metamyelocytes % (manual) 5.2 %; Monocytes # (manual) 1.89 K/uL (0.11-0.59); Monocytes % (manual) 7.8 %; Myelocytes # (manual) 0.41 K/uL (0-0); Myelocytes % (manual) 1.7 %; Neutrophils % (manual) 68.8 %; Polychromasia 1+
[2019-05-18 07:03] LABS: BUN Creatinine Ratio 21.4 (10-20); Blood Urea Nitrogen 7 mg/dl (7-18); Calcium 8.3 mg/dl (8.5-10.1); Carbon Dioxide 26 mmol/L (21-32); Chloride 102 mmol/L (98-107); Creatinine Clr Calc Pharmacy 302.6 ml/min; Est GFR (African American) > 150.0; Est GFR (Non-African American) 146.4; Glucose 70 mg/dl (70-99); Potassium 3.5 mmol/L (3.5-5.1); Sodium 137 mmol/L (136-145)
[2019-05-18] MEDS: TICAGRELOR 90 MG TAB PO SCH ×2 (07:49→20:38)
[2019-05-18] MEDS: POTASSIUM CHLORIDE PWD 20 MEQ PACK PO SCH ×2 (07:49→20:39)
[2019-05-18] MEDS: ASCORBIC ACID 500 MG TAB PO SCH ×2 (07:49→20:38)
[2019-05-18] MEDS: DOXYCYCLINE HYCLATE 100 MG CAP PO SCH ×2 (07:50→20:37)
[2019-05-18] MEDS: FOLIC ACID 1 MG TAB PO SCH (07:50)
[2019-05-18] MEDS: GABAPENTIN 800 MG TAB PO SCH ×3 (07:50→20:36)
[2019-05-18] MEDS: ASPIRIN 81 MG ECTAB PO SCH (07:51)
[2019-05-18] MEDS: THIAMINE HCL 100 MG TAB PO SCH (07:51)
[2019-05-18] MEDS: FERROUS SULFATE 325 MG TAB PO SCH ×2 (07:51→17:32)
[2019-05-18] MEDS: INSULIN ASPART 100 UNITS/ML 3 ML PEN SC SCH ×3 (09:09→17:40)
[2019-05-18] MEDS: AMOXICILLIN/CLAVULANATE 875 MG TAB PO SCH ×2 (10:14→17:32)
[2019-05-18] MEDS ORDERED: FUROSEMIDE 40 MG in SYRINGE 0 ML IV ONE (10:15)
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
[2019-05-18] MEDS: SIMVASTATIN 40 MG TAB PO SCH (20:37)
[2019-05-19] MEDS ORDERED: ALBUT/IPRATROP 3MG/0.5MG NEB 3 ML VIAL NEB STA (01:30)
--- NOTE | 2019-05-19 01:37 | Progress Note ---
Date of Service May 19, 2019 Assessment & Plan (1) Shortness of breath: I was alerted by nursing that Mr. Mcguire had desaturated to 77% on 4L of nasal cannula. He appeared to be working hard to breathe and was diaphoretic. Upon evaluation, he was saturating in the 90s on 4L via oxymask. He appeared short of breath with talking. He denied any chest pain. His breath sounds were coarse bilaterally. He remained with his usual stridor, presumed to be secondary to subglottic stenosis after a traumatic intubation. I had him use his flutter valve, which did initiate some wet sounding coughs. I ordered a stat CXR. His case was discussed with respiratory, who will administer another duoneb treatment. He has not yet been evaluated by [facility], and both myself and respiratory are concerned about his frequent desaturations being related to aspiration. Recommend speech eval during the daytime. Johnathon Kyle, PGY-3 Overnight call Results & Data Vital Signs (Past 12 Hours) Vital Signs Temp Pulse Resp BP BP Pulse Ox 05/18/19 23:59 94 H 18 94 05/18/19 23:00 36.3 C L 95 H 20 151/74 H 92 05/18/19 19:19 95 H 20 92 05/18/19 15:19 96 H 20 94 05/18/19 15:03 37.5 C 102 H 19 126/83 98 PG Care Time/CCT Total # of Minutes Spent Total Time Spent with Patient: Total time spent is greater than 50% in coordination of care (as documented) at patient's floor/unit and/or counseling patient: Resident Activity Tracking Resident Involvement: It Support Analyst Coverage Note Care Provided: Adult Hospital Medicine
[2019-05-19] MEDS ORDERED: ACETYLCYSTEINE 10% INHAL SOLN **DISPENSED FROM RESP. INH SCH (03:15)
[2019-05-19 03:48] LABS: Base Excess ABG 1.2 mEq/L (-9-1.8); HCO3 ABG 25 mmol/L (19-24); Oxygen Saturation ABG 92.7 % (90-95); PCO2 ABG 36 mmHg (35-46); PO2 ABG 65 mm/Hg (80-95); pH ABG 7.46 (7.35-7.45)
[2019-05-19] MEDS: ACETYLCYSTEINE 10% INHAL SOLN **DISPENSED FROM RESP. INH SCH ×2 (03:50→07:00)
[2019-05-19 03:55] LABS: Allen Test Pos (Pos)
[2019-05-19 04:05] LABS: BUN Creatinine Ratio 26.6 (10-20); Calcium 8.4 mg/dl (8.5-10.1); Creatinine Clr Calc Pharmacy 203.9 ml/min; Est GFR (African American) 144.3; Est GFR (Non-African American) 124.5; Potassium 3.5 mmol/L (3.5-5.1)
[2019-05-19 04:08] LABS: Hematocrit (blood only) 37.1 % (42-52); Hemoglobin 11.8 g/dL (14.0-18.0); Mean Corpuscular Hgb Conc 31.8 g/dL (32-36); Mean Corpuscular Volume 74.2 fL (80-100); Mean Platelet Volume 9.6 fL (7.4-10.4); Platelet Count 341 K/uL (130-400); RDW Coefficient of Variation 19.4 % (11.5-14.5); RDW Standard Deviation 49.8 fL (36.4-46.3)
[2019-05-19 04:15] LABS: ALC (manual) 5.21 K/uL (1.2-3.4); Eosinophils # (manual) 1.75 K/uL (0-0.5); Eosinophils % (manual) 5.2 %; Hypochromasia Present; Lymphocytes # (manual) 5.21 K/uL (1.2-3.4); Lymphocytes % (manual) 15.5 %; Metamyelocytes # (manual) 0.57 K/uL (0-0); Metamyelocytes % (manual) 1.7 %; Monocytes # (manual) 0.87 K/uL (0.11-0.59); Monocytes % (manual) 2.6 %; Myelocytes # (manual) 1.75 K/uL (0-0); Myelocytes % (manual) 5.2 %; Neutrophils % (manual) 69.8 %; Polychromasia 1+
[2019-05-19] MEDS ORDERED: PIPERACILL/TAZOBAC CONSULT ACTIVE PRN (05:34)
[2019-05-19] MEDS ORDERED: VANCOMYCIN CONSULT ACTIVE PRN (05:34)
[2019-05-19] MEDS ORDERED: PIPERACILLIN/TAZOBACTAM 3.375 GM in DEXTROSE 5% 100 ML IV ONE (06:00)
[2019-05-19] MEDS ORDERED: VANCOMYCIN HCL 2,250 MG in SODIUM CHLORIDE 0.9% 500 ML IV ONE (06:00)
[2019-05-19] MEDS: HEPARIN SOD 5,000 UNIT/0.5 ML VIAL SQ SCH ×3 (06:14→22:08)
[2019-05-19] MEDS: ALBUTEROL 0.5% NEB SOLN 2.5 MG/0.5 ML VIAL NEB SCH ×4 (07:00→18:51)
[2019-05-19] MEDS: INSULIN ASPART 100 UNITS/ML 3 ML PEN SC SCH ×3 (07:08→16:43)
[2019-05-19] MEDS: TICAGRELOR 90 MG TAB PO SCH ×2 (08:20→19:54)
[2019-05-19] MEDS: ASPIRIN 81 MG ECTAB PO SCH (08:20)
--- NOTE | 2019-05-19 08:20 | XRay Report ---
XR chest 1V portable HISTORY: worsening o2 demand COMPARISON: Chest 05/18/2019. FINDINGS: Slight improvement in the asymmetric pulmonary edema. However, the moderate left pleural ef fusion and left lung airspace opacities have progressed. No pneumothorax. The heart is stable in size . IMPRESSION: 1. Slight improvement in the mild pulmonary edema. 2. Progression of the moderate left pleural effusion and left lung airspace opacities. Electronically signed by: Juancarlos Vela M.D. 05/19/2019 8:18 AM
[2019-05-19] MEDS: POTASSIUM CHLORIDE PWD 20 MEQ PACK PO SCH ×2 (08:21→19:55)
[2019-05-19] MEDS: THIAMINE HCL 100 MG TAB PO SCH (08:21)
[2019-05-19] MEDS: FERROUS SULFATE 325 MG TAB PO SCH ×2 (08:21→17:35)
[2019-05-19] MEDS: FOLIC ACID 1 MG TAB PO SCH (08:21)
[2019-05-19] MEDS: GABAPENTIN 800 MG TAB PO SCH ×3 (08:21→19:55)
[2019-05-19] MEDS: ASCORBIC ACID 500 MG TAB PO SCH ×2 (08:22→19:55)
[2019-05-19] MEDS ORDERED: PNEUMOCOCCAL ADMINISTRATION CHARGE ONE (09:15)
[2019-05-19] MEDS ORDERED: PNEUMOCOCCAL POLYSACCHARIDES 25 MCG/0.5 ML VIAL/SYR IM ONE (09:15)
--- NOTE | 2019-05-19 09:20 | Critical Care Progress Note ---
Date of Service May 19, 2019 Assessment & Plan (1) Acute respiratory failure: Neuro- awake alert ?confused. CV- HD stable now. septic shock resolved. CAD aspirin, ticagrelor, simvastatin Pulmonary- acute hypoxic respiratory failure now with new episodes possible aspiration with LLL infiltrate or atelectasis. seems like lung may have opened as improving from last night. recheck cxr. 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 continue chest PT, flutter valveu. on bipap now. can try off ID- pneumonia again possibly reccurent aspiration vancomycin, piperacillin- tazobactam. previously with MRSA in bronch Renal- cr ok. hypokalemia will replace GI- diet if tolerates off bipap Heme- leukocytosis worse. heparin proph Endocrine- blood sugars controlled Dispo- continue ICU care for respiratory support I have personally spent 40 minutes of critical care time in the direct m anagement of this patient. This is a life/limb threatening event. This includes time spent evaluating patient, direct bedside care, chart review, placing orders, interpretation of diagnostic studies, discussion with consultants, patient, and/or family members regarding treatment decisions, as well as other required patient management activities. This time is exclusive of all separately billable procedures, and teaching time and separate from and in addition to any other critical care service time. (2) Aspiration pneumonia: (3) Pneumonia of both lower lobes: (4) Septic shock: Subjective overnight more hypoxic found to have atelectasis or infiltrate L lower lung on CXR. He was placed on bipap. this morning he says he feels better. there was concern about aspiration Physical Exam Physical Exam: Constitutional: Comfortable NAD on bipap HEENT: normocephalic atraumatic. MMM. no cervical lymphadenopathy CV: RRR nl s1,s2 no murmurs rubs or gallops Lungs: slighty crackles and decreased bilaterally but does have air movement on left now. no stridor no accessory muscle use Abd: soft nontender nondistended. normal bowel sounds Ext: no edema. no cyanosis, no clubbing Skin: warm dry Neuro: awake but confused. Psych: flat affect Results & Data Vital Signs (Past 12 Hours) Vital Signs Temp Pulse Pulse Resp BP BP BP 05/19/19 08:40 96 H 30 H 05/19/19 08:30 97 H 28 H 05/19/19 08:20 98 H 31 H 05/19/19 08:10 91 H 19 05/19/19 08:01 93 H 20 05/19/19 08:00 91 H 20 151/74 H 05/19/19 07:50 37.1 C 92 H 20 05/19/19 07:40 94 H 22 05/19/19 07:30 94 H 22 05/19/19 07:20 94 H 22 05/19/19 07:10 97 H 27 H 05/19/19 07:07 74 27 H 05/19/19 07:00 95 H 74 25 H 119/76 05/19/19 06:50 95 H 23 05/19/19 06:40 99 H 26 H 05/19/19 06:32 99 H 24 139/75 05/19/19 06:30 100 H 23 05/19/19 06:20 96 H 21 05/19/19 06:10 97 H 26 H 05/19/19 06:00 99 H 23 05/19/19 05:50 96 H 24 05/19/19 05:40 96 H 23 05/19/19 05:30 37.3 C 98 H 29 H 05/19/19 05:20 99 H 24 05/19/19 05:10 105 H 29 H 05/19/19 05:07 37.3 C 106 H 26 H 127/75 05/19/19 05:04 106 H 31 H 05/19/19 04:23 37.9 C H 102 H 20 139/80 05/19/19 03:50 105 H 26 H 05/19/19 03:12 99 H 16 05/19/19 02:58 99 H 20 138/80 05/19/19 01:41 96 H 26 H 05/19/19 01:30 139/78 05/18/19 23:59 94 H 18 05/18/19 23:00 36.3 C L 95 H 20 151/74 H Pulse Ox 05/19/19 08:40 98 05/19/19 08:30 89 L 05/19/19 08:20 94 05/19/19 08:10 94 05/19/19 08:01 95 05/19/19 08:00 98 05/19/19 07:50 96 05/19/19 07:40 99 05/19/19 07:30 100 05/19/19 07:20 99 05/19/19 07:10 86 L 05/19/19 07:07 95 05/19/19 07:00 97 05/19/19 06:50 91 05/19/19 06:40 97 05/19/19 06:32 100 05/19/19 06:30 96 05/19/19 06:20 97 05/19/19 06:10 100 05/19/19 06:00 94 05/19/19 05:50 100 05/19/19 05:40 96 05/19/19 05:30 93 05/19/19 05:20 96 05/19/19 05:10 97 05/19/19 05:07 94 05/19/19 05:04 05/19/19 04:23 99 05/19/19 03:50 96 05/19/19 03:12 96 05/19/19 02:58 100 05/19/19 01:41 96 05/19/19 01:30 05/18/19 23:59 94 05/18/19 23:00 92 Laboratory Results Laboratory Results - last 24 hr 05/18/19 05/18/19 05/18/19 11:30 16:47 20:09 WBC RBC Hgb Hct MCV MCH MCHC RDW Std Deviation RDW Coeff of Jennifer Plt Count MPV Neutrophils % (Manual) Lymphocytes % (Manual) Monocytes % (Manual) Eosinophils % (Manual) Metamyelocytes % (Man) Myelocytes % (Man) Neutrophils # (Manual) Total Absolute Neuts Lymphocytes # (Manual) Total Abs Lymphocytes Monocytes # (Manual) Eosinophils # (Manual) Metamyelocytes # (Man) Myelocytes # (Manual) Polychromasia Hypochromasia ABG pH ABG pCO2 ABG pO2 ABG HCO3 ABG O2 Saturation ABG Base Excess Héctor Test Oxygen Given Sodium Potassium Chloride Carbon Dioxide Anion Gap BUN Creatinine Est Cr Clr Drug Dosing Est GFR ( Amer) Est GFR (Non-Af Amer) BUN/Creatinine Ratio Glucose POC Glucose 79 85 116 H Calcium Procalcitonin 05/19/19 05/19/19 05/19/19 03:34 03:34 03:34 WBC 33.60 H* RBC 5.00 Hgb 11.8 L Hct 37.1 L MCV 74.2 L MCH 23.6 L MCHC 31.8 L RDW Std Deviation 49.8 H RDW Coeff of Jennifer 19.4 H Plt Count 341 MPV 9.6 Neutrophils % (Manual) 69.8 Lymphocytes % (Manual) 15.5 Monocytes % (Manual) 2.6 Eosinophils % (Manual) 5.2 Metamyelocytes % (Man) 1.7 Myelocytes % (Man) 5.2 Neutrophils # (Manual) 23.45 H Total Absolute Neuts 23.45 H Lymphocytes # (Manual) 5.21 H Total Abs Lymphocytes 5.21 H Monocytes # (Manual) 0.87 H Eosinophils # (Manual) 1.75 H Metamyelocytes # (Man) 0.57 H Myelocytes # (Manual) 1.75 H Polychromasia 1+ Hypochromasia Present ABG pH ABG pCO2 ABG pO2 ABG HCO3 ABG O2 Saturation ABG Base Excess Héctor Test Oxygen Given Sodium 135 L Potassium 3.5 Chloride 101 Carbon Dioxide 27 Anion Gap 7.0 BUN 12 D Creatinine 0.46 L Est Cr Clr Drug Dosing 203.9 Est GFR ( Amer) 144.3 Est GFR (Non-Af Amer) 124.5 BUN/Creatinine Ratio 26.6 H Glucose 93 POC Glucose Calcium 8.4 L Procalcitonin 0.34 05/19/19 05/19/19 03:34 07:01 WBC RBC Hgb Hct MCV MCH MCHC RDW Std Deviation RDW Coeff of Jennifer Plt Count MPV Neutrophils % (Manual) Lymphocytes % (Manual) Monocytes % (Manual) Eosinophils % (Manual) Metamyelocytes % (Man) Myelocytes % (Man) Neutrophils # (Manual) Total Absolute Neuts Lymphocytes # (Manual) Total Abs Lymphocytes Monocytes # (Manual) Eosinophils # (Manual) Metamyelocytes # (Man) Myelocytes # (Manual) Polychromasia Hypochromasia ABG pH 7.46 H ABG pCO2 36 ABG pO2 65 L ABG HCO3 25 H ABG O2 Saturation 92.7 ABG Base Excess 1.2 Héctor Test Pos Oxygen Given 60% Sodium Potassium Chloride Carbon Dioxide Anion Gap BUN Creatinine Est Cr Clr Drug Dosing Est GFR ( Amer) Est GFR (Non-Af Amer) BUN/Creatinine Ratio Glucose POC Glucose 89 Calcium Procalcitonin PG Care Time/CCT Critical Care Time: Yes Total Critical Care Time: 40
--- NOTE | 2019-05-19 09:27 | Pharmacy Report ---
Glycemic Control Progress Note - Date of Service May 19, 2019 - Scope Glycemic Pharmacist consulted for glycemic control to write orders per [facility] inpatient glycemic control protocol. - Objective Accuchecks BSG(last 24 hours):: 05/18/19 05/18/19 05/18/19 11:30 16:47 20:09 Glucose POC Glucose 79 85 116 H 05/19/19 05/19/19 03:34 07:01 Glucose 93 POC Glucose 89 - Recent Pertinent Medications The patient is currently receiving: * Basal insulin: Lantus -- units every -- hours * Correctional Insulin: Novolog Correction per scale ACHS Goal Range: Low 110 mg/dL - High 140 mg/dL Correction Factor: 25 mg/dL/unit * Prandial insulin: Per carb ratio of 1 unit per -- grams CHO consumed * Oral Agents: - Outpatient Anti-Diabetic Meds N/A - Assessment & Plan ASSESSMENT: * See progress note from 05/15/19 for more background info, in short: * Pt receiving SQ basal bolus insulin regimen for hyperglycemia secondary to steroids * Patient is currently receiving an average of 0 units of insulin per day * 0 units of basal insulin * 0 units of prandial/correctional insulin * BSGs ranging 79 - 116 mg/dl over the past 24hrs * Changes needed to insulin regimen: * AM Fasting BSG = 89 mg/dl. This is below goal range for patient based on inpatient targets and co-morbidities. Will not add basal insulin at this time. * Post-prandial BSGs are in range therefore no changes needed to CF/CR. * Total daily dose = 0 units when not on steroids * Additional notes / comments: if steroids are started, will add carbohydrate ratio of 12 PLAN FOR INPATIENT GLYCEMIC CONTROL: * Continuing correction factor of 25 mg/dl/unit * Continuing goal range of Low 110 mg/dL - High 140 mg/dL RECOMMENDATIONS FOR DISCHARGE: * no need for insulin at discharge * Please note that the plan above was derived based on current level of insulin resistance and hospital stress. These recommendations are appropriate for inpatient admission only. Plan of care upon discharge will need to be reassessed to avoid potential outpatient hypo/hyperglycemia. Thank you.
--- NOTE | 2019-05-19 10:17 | XRay Report ---
XR chest 1V portable HISTORY: hypoxia LLL infiltrate/atelectatsis COMPARISON: Chest 05/19/2019. FINDINGS: Improved aeration within the left lung. The small to moderate left pleural effusion and lef t basilar density have also improved. Right perihilar hazy airspace opacity has progressed. This sugg ests worsening asymmetric pulmonary edema. No pneumothorax. The heart is stable in size. IMPRESSION: 1. The [id number] left pleural effusion and left basilar density have improved. 2. Progressive right perihilar airspace opacity. This favors progressive asymmetric pulmonary edema. Electronically signed by: Juancarlos Vela M.D. 05/19/2019 10:16 AM
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
--- NOTE | 2019-05-19 11:42 | Pharmacy Report ---
Pharmacy Abx Dose Short Note - Date of Service May 19, 2019 - Assessment & Plan Assessment 58 year old M receiving IV vancomycin and Zosyn for empiric treatment of pneumonia Patient previously received 7 days of vancomycin and Zosyn (05/09-05/17) and was transitioned to PO doxycycline/Augmentin. Patient condition worsened and now vancomycin and zosyn restarted. Microbiology: 05/12 sputum - MRSA (VALENTÍN of 2 for vancomycin), 05/13 BAL - MRSA Slightly elevated temperature this morning at 37.9 WBC: 21.1 (05/17) -> 33.6 (05/19) Plan Vancomycin * Loading dose of 2250 mg IV given at 0600 (25 mg/kg) * Maintenance dose of 1250 mg IV (14 mg/kg) q6h initiated based on previous trough attainment of approximately 20 mcg/mL * Goal trough for pneumonia: 15-20 mcg/mL * Will obtain trough tomorrow at 0530 prior to the 5th dose Zosyn * 3.375 gram IV q8h appropriate based on BMI and CrCl Pharmacy will continue to follow and will adjust dose/frequency as necessary. Thank you.
[2019-05-19] MEDS: VANCOMYCIN HCL 1,250 MG in SODIUM CHLORIDE 0.9% 250 ML IV SCH ×3 (12:04→23:56)
[2019-05-19] MEDS: PIPERACILLIN/TAZOBACTAM 3.375 GM in DEXTROSE 5% 100 ML IV SCH ×2 (12:04→19:50)
[2019-05-19] MEDS: SIMVASTATIN 40 MG TAB PO SCH (19:56)
[2019-05-20] MEDS: ALBUTEROL 0.5% NEB SOLN 2.5 MG/0.5 ML VIAL NEB SCH ×4 (01:57→19:39)
[2019-05-20] MEDS: PIPERACILLIN/TAZOBACTAM 3.375 GM in DEXTROSE 5% 100 ML IV SCH ×3 (03:06→20:50)
[2019-05-20] MEDS: HEPARIN SOD 5,000 UNIT/0.5 ML VIAL SQ SCH ×3 (05:18→21:51)
[2019-05-20] MEDS ORDERED: VANCOMYCIN TROUGH ONE (05:30)
[2019-05-20] MEDS: VANCOMYCIN HCL 1,250 MG in SODIUM CHLORIDE 0.9% 250 ML IV SCH ×3 (05:34→18:31)
[2019-05-20 06:08] LABS: Hematocrit (blood only) 35.2 % (42-52); Hemoglobin 10.8 g/dL (14.0-18.0); Mean Corpuscular Hgb Conc 30.7 g/dL (32-36); Mean Corpuscular Volume 76.4 fL (80-100); Platelet Count 322 K/uL (130-400); RDW Coefficient of Variation 19.5 % (11.5-14.5); RDW Standard Deviation 53.1 fL (36.4-46.3); Red Blood Count 4.61 M/uL (4.7-6.1); White Blood Count 31.53 K/uL (4.8-10.8)
[2019-05-20 06:17] LABS: BUN Creatinine Ratio 31.2 (10-20); Blood Urea Nitrogen 12 mg/dl (7-18); Calcium 8.5 mg/dl (8.5-10.1); Carbon Dioxide 28 mmol/L (21-32); Chloride 106 mmol/L (98-107); Creatinine Clr Calc Pharmacy 228.4 ml/min; Est GFR (African American) > 150.0; Est GFR (Non-African American) 134.7; Glucose 83 mg/dl (70-99); Potassium 3.9 mmol/L (3.5-5.1); Sodium 137 mmol/L (136-145)
[2019-05-20 06:26] LABS: Basophils # (auto) 0.09 K/uL (0-0.2); Basophils % (auto) 0.3 %; Eosinophils # (auto) 0.85 K/uL (0-0.5); Eosinophils % (auto) 2.7 %; Hypochromasia Present; Immature Granulocytes # (auto) 2.19 K/uL (0.00-0.02); Immature Granulocytes % (auto) 6.9 %; Lymphocytes # (auto) 2.02 K/uL (1.2-3.4); Lymphocytes % (auto) 6.4 %; Monocytes # (auto) 2.04 K/uL (0.11-0.59); Monocytes % (auto) 6.5 %; Neutrophils # (auto) 24.34 K/uL (1.4-6.5); Neutrophils % (auto) 77.2 %
[2019-05-20] MEDS: INSULIN ASPART 100 UNITS/ML 3 ML PEN SC SCH ×3 (07:37→16:31)
--- NOTE | 2019-05-20 07:38 | Critical Care Progress Note ---
Date of Service May 20, 2019 Assessment & Plan (1) Acute respiratory failure: Neuro- awake alert ?confused. does not seem to understand the consequences of his eating and aspiration CV- HD stable now. septic shock resolved. CAD aspirin, ticagrelor, simvastatin Pulmonary- acute hypoxic respiratory failure now with new episode possible aspiration with LLL infiltrate or atelectasis. now reopened on repeat CXR tomorrow. subglottic stenosis seems to have stridor when he is not calm. c ontinue chest PT, flutter valve. bipap if needed ID- pneumonia again possibly recurrent aspiration vancomycin, piperacillin- tazobactam. previously with MRSA in bronch Renal- cr ok. GI- swallow eval before diet Heme- leukocytosis worse. heparin proph Endocrine- blood sugars controlled Dispo- continue ICU care for respiratory support. but if does well later today can possibly transfer (2) Aspiration pneumonia: (3) Pneumonia of both lower lobes: (4) Septic shock: Subjective complaining that we are not letting him eat denies shortness of breath Physical Exam Physical Exam: Constitutional: Comfortable NAD on NC HEENT: normocephalic atraumatic. MMM. no cervical lymphadenopathy CV: RRR nl s1,s2 no murmurs rubs or gallops Lungs: bronchial breath sounds bilaterally. slight stridor when he got worked up but not when he was calm. no accessory muscle use Abd: soft nontender nondistended. normal bowel sounds Ext: no edema. no cyanosis, no clubbing Skin: warm dry Neuro: awake but confused. Psych: flat affect Results & Data Vital Signs (Past 12 Hours) Vital Signs Temp Pulse Pulse Resp BP Pulse Ox Pulse Ox 05/20/19 06:20 36.8 C 83 23 05/20/19 06:10 88 24 99 05/20/19 06:01 85 24 100 05/20/19 06:00 87 24 146/77 H 100 05/20/19 05:50 86 23 78 L 05/20/19 05:40 85 21 05/20/19 05:30 86 20 98 05/20/19 05:29 84 21 140/79 98 05/20/19 05:20 85 21 99 05/20/19 05:10 89 18 98 05/20/19 05:01 92 H 27 H 137/65 100 07/07/19 05:00 87 23 100 05/20/19 04:50 36.5 C 85 21 99 05/20/19 04:40 86 23 99 05/20/19 04:30 87 26 H 99 05/20/19 04:20 91 H 30 H 05/20/19 04:10 88 28 H 81 L 05/20/19 04:00 91 H 25 H 164/86 H 05/20/19 03:50 92 H 26 H 96 05/20/19 03:40 91 H 23 96 05/20/19 03:30 81 17 96 05/20/19 03:20 88 20 95 05/20/19 03:10 65 17 95 05/20/19 03:00 90 21 138/77 94 05/20/19 02:50 90 26 H 96 05/20/19 02:40 91 H 24 93 05/20/19 02:30 92 H 27 H 91 05/20/19 02:20 93 H 26 H 92 05/20/19 02:10 95 H 29 H 05/20/19 02:01 94 H 19 152/78 H 05/20/19 02:00 96 H 19 05/20/19 01:58 95 H 20 97 05/20/19 01:50 88 19 100 05/20/19 01:40 89 19 96 05/20/19 01:30 91 H 19 97 05/20/19 01:20 88 19 95 05/20/19 01:10 86 19 94 05/20/19 01:01 92 H 17 98 05/20/19 01:00 93 H 15 175/87 H 99 05/20/19 00:50 36.8 C 85 16 95 05/20/19 00:40 86 18 93 05/20/19 00:30 87 20 92 05/20/19 00:20 88 20 93 05/20/19 00:10 88 21 93 05/20/19 00:01 87 20 92 05/20/19 00:00 87 19 143/73 H 94 05/19/19 23:50 87 21 96 05/19/19 23:40 84 21 95 05/19/19 23:30 86 19 98 05/19/19 23:20 90 19 98 05/19/19 23:17 87 21 145/76 H 96 05/19/19 23:10 85 20 05/19/19 23:00 89 20 145/76 H 05/19/19 22:50 90 24 98 05/19/19 22:40 90 25 H 97 05/19/19 22:30 95 H 21 94 05/19/19 22:20 82 14 99 05/19/19 22:14 95 H 05/19/19 22:10 93 H 25 H 98 05/19/19 22:00 90 25 H 152/77 H 100 05/19/19 21:50 91 H 21 99 05/19/19 21:40 97 H 31 H 96 05/19/19 21:30 94 H 23 97 05/19/19 21:20 96 H 32 H 96 05/19/19 21:10 92 H 21 96 05/19/19 21:00 93 H 22 147/79 H 96 05/19/19 20:50 95 H 25 H 91 05/19/19 20:40 93 H 26 H 92 05/19/19 20:30 94 H 28 H 95 05/19/19 20:20 94 H 20 98 05/19/19 20:10 98 H 19 99 05/19/19 20:00 36.9 C 94 H 22 158/88 H 90 98 05/19/19 19:50 90 22 92 05/19/19 19:40 90 28 H 87 L Laboratory Results Laboratory Results - last 24 hr 05/19/19 05/19/19 05/19/19 11:44 16:42 22:04 WBC RBC Hgb Hct MCV MCH MCHC RDW Std Deviation RDW Coeff of Jennifer Plt Count MPV Immature Gran % (Auto) Neut % (Auto) Lymph % (Auto) Moody % (Auto) Eos % (Auto) Baso % (Auto) Immature Gran # (Auto) Neut # (Auto) Lymph # (Auto) Moody # (Auto) Eos # (Auto) Baso # (Auto) Hypochromasia Sodium Potassium Chloride Carbon Dioxide Anion Gap BUN Creatinine Est Cr Clr Drug Dosing Est GFR ( Amer) Est GFR (Non-Af Amer) BUN/Creatinine Ratio Glucose POC Glucose 73 80 106 H Calcium Procalcitonin Vancomycin Trough 05/20/19 05/20/19 05/20/19 05:21 05:21 05:21 WBC 31.53 H* RBC 4.61 L Hgb 10.8 L Hct 35.2 L MCV 76.4 L MCH 23.4 L MCHC 30.7 L RDW Std Deviation 53.1 H RDW Coeff of Jennifer 19.5 H Plt Count 322 MPV 10.0 Immature Gran % (Auto) 6.9 Neut % (Auto) 77.2 Lymph % (Auto) 6.4 Moody % (Auto) 6.5 Eos % (Auto) 2.7 Baso % (Auto) 0.3 Immature Gran # (Auto) 2.19 H Neut # (Auto) 24.34 H Lymph # (Auto) 2.02 Moody # (Auto) 2.04 H Eos # (Auto) 0.85 H Baso # (Auto) 0.09 Hypochromasia Present Sodium 137 Potassium 3.9 Chloride 106 Carbon Dioxide 28 Anion Gap 3.0 BUN 12 Creatinine 0.38 L Est Cr Clr Drug Dosing 228.4 Est GFR ( Amer) > 150.0 Est GFR (Non-Af Amer) 134.7 BUN/Creatinine Ratio 31.2 H Glucose 83 POC Glucose Calcium 8.5 Procalcitonin 0.27 Vancomycin Trough 05/20/19 05:21 WBC RBC Hgb Hct MCV MCH MCHC RDW Std Deviation RDW Coeff of Jennifer Plt Count MPV Immature Gran % (Auto) Neut % (Auto) Lymph % (Auto) Moody % (Auto) Eos % (Auto) Baso % (Auto) Immature Gran # (Auto) Neut # (Auto) Lymph # (Auto) Moody # (Auto) Eos # (Auto) Baso # (Auto) Hypochromasia Sodium Potassium Chloride Carbon Dioxide Anion Gap BUN Creatinine Est Cr Clr Drug Dosing Est GFR ( Amer) Est GFR (Non-Af Amer) BUN/Creatinine Ratio Glucose POC Glucose Calcium Procalcitonin Vancomycin Trough 17.1
[2019-05-20] MEDS: FERROUS SULFATE 325 MG TAB PO SCH ×2 (07:39→16:54)
[2019-05-20] MEDS: ASPIRIN 81 MG ECTAB PO SCH (07:42)
[2019-05-20] MEDS: GABAPENTIN 800 MG TAB PO SCH ×3 (07:42→20:52)
[2019-05-20] MEDS: TICAGRELOR 90 MG TAB PO SCH ×2 (07:42→20:50)
[2019-05-20] MEDS: FOLIC ACID 1 MG TAB PO SCH (07:42)
[2019-05-20] MEDS: POTASSIUM CHLORIDE PWD 20 MEQ PACK PO SCH ×3 (07:42→20:51)
[2019-05-20] MEDS: THIAMINE HCL 100 MG TAB PO SCH (07:43)
[2019-05-20] MEDS: ASCORBIC ACID 500 MG TAB PO SCH ×3 (07:43→20:51)
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
--- NOTE | 2019-05-20 11:24 | Pharmacy Report ---
Pharmacy Abx Dose Short Note - Date of Service May 20, 2019 - Assessment & Plan Assessment 58 year old M receiving IV vancomycin and Zosyn for empiric treatment of pneumonia Patient previously received 7 days of vancomycin and Zosyn (05/09-05/17) and was transitioned to PO doxycycline/Augmentin. Patient condition worsened (suspected aspiration event on evening of 05/18) and now vancomycin and zosyn restarted. Microbiology: 05/12 sputum - MRSA (VALENTÍN of 2 for vancomycin), 05/13 BAL - MRSA WBC remains elevated at 32 Plan Vancomycin * Trough level of 17.1 mcg/mL is therapeutic * Continue dose of 1250 mg IV every 6 hours * Goal trough level for pneumonia : 15 to 20 mcg/mL * Follow-up trough level ordered for: 05/21/19 @0530 due to possible concern for accumulation and patient history when dosed at this dose/frequency. Pharmacy will continue to follow and will adjust dose/frequency as necessary. Thank you.
[2019-05-20] MEDS: ALBUT/IPRATROP 3MG/0.5MG NEB 3 ML VIAL NEB PRN ×2 (19:38→23:09)
[2019-05-20] MEDS ORDERED: LORazepam 0.5 MG/1 ML VIAL IV STA (20:29)
[2019-05-20] MEDS: SIMVASTATIN 40 MG TAB PO SCH ×2 (20:31→20:51)
[2019-05-20] MEDS ORDERED: MoRPHine SULFATE 2 MG/ML CARP IV STA (22:10)
[2019-05-21] MEDS: VANCOMYCIN HCL 1,250 MG in SODIUM CHLORIDE 0.9% 250 ML IV SCH ×2 (00:03→05:34)
[2019-05-21] MEDS: ALBUT/IPRATROP 3MG/0.5MG NEB 3 ML VIAL NEB PRN ×2 (02:21→20:08)
[2019-05-21] MEDS: PIPERACILLIN/TAZOBACTAM 3.375 GM in DEXTROSE 5% 100 ML IV SCH ×3 (03:39→20:23)
[2019-05-21] MEDS ORDERED: MoRPHine SULFATE 2 MG/ML CARP ONE (04:04)
[2019-05-21] MEDS: MoRPHine SULFATE 2 MG/ML CARP IV PRN ×2 (04:25→12:26)
[2019-05-21] MEDS: ALBUTEROL 0.5% NEB SOLN 2.5 MG/0.5 ML VIAL NEB SCH ×4 (04:43→20:55)
[2019-05-21 05:03] LABS: Blood Urea Nitrogen 10 mg/dl (7-18); Carbon Dioxide 27 mmol/L (21-32); Chloride 104 mmol/L (98-107); Est GFR (African American) > 150.0; Est GFR (Non-African American) 131.9; Hematocrit (blood only) 34.6 % (42-52); Hemoglobin 10.6 g/dL (14.0-18.0); Mean Corpuscular Hgb Conc 30.6 g/dL (32-36); Mean Corpuscular Volume 77.2 fL (80-100); Platelet Count 340 K/uL (130-400); Potassium 4.2 mmol/L (3.5-5.1); RDW Coefficient of Variation 19.4 % (11.5-14.5); Red Blood Count 4.48 M/uL (4.7-6.1); Sodium 137 mmol/L (136-145); White Blood Count 36.95 K/uL (4.8-10.8)
[2019-05-21 05:04] LABS: BUN Creatinine Ratio 25.6 (10-20); Calcium 8.7 mg/dl (8.5-10.1); Glucose 98 mg/dl (70-99)
[2019-05-21 05:23] LABS: Basophils # (auto) 0.07 K/uL (0-0.2); Basophils % (auto) 0.2 %; Eosinophils # (auto) 0.52 K/uL (0-0.5); Eosinophils % (auto) 1.4 %; Hypochromasia Present; Immature Granulocytes # (auto) 1.44 K/uL (0.00-0.02); Immature Granulocytes % (auto) 3.9 %; Lymphocytes # (auto) 1.78 K/uL (1.2-3.4); Lymphocytes % (auto) 4.8 %; Neutrophils # (auto) 30.94 K/uL (1.4-6.5); Neutrophils % (auto) 83.7 %
[2019-05-21] MEDS ORDERED: VANCOMYCIN TROUGH ONE (05:30)
[2019-05-21] MEDS: HEPARIN SOD 5,000 UNIT/0.5 ML VIAL SQ SCH ×3 (05:35→22:31)
[2019-05-21] MEDS: INSULIN ASPART 100 UNITS/ML 3 ML PEN SC SCH ×3 (07:29→16:26)
[2019-05-21] MEDS: FERROUS SULFATE 325 MG TAB PO SCH ×2 (07:30→17:26)
[2019-05-21] MEDS: TICAGRELOR 90 MG TAB PO SCH ×2 (07:31→20:23)
[2019-05-21] MEDS: GABAPENTIN 800 MG TAB PO SCH ×3 (07:31→20:22)
[2019-05-21] MEDS: ASPIRIN 81 MG ECTAB PO SCH (07:31)
[2019-05-21] MEDS: POTASSIUM CHLORIDE PWD 20 MEQ PACK PO SCH ×2 (07:31→20:23)
[2019-05-21] MEDS: FOLIC ACID 1 MG TAB PO SCH (07:31)
[2019-05-21] MEDS: THIAMINE HCL 100 MG TAB PO SCH (07:32)
[2019-05-21] MEDS: ASCORBIC ACID 500 MG TAB PO SCH ×2 (07:32→20:22)
--- NOTE | 2019-05-21 07:41 | XRay Report ---
XR chest 1V portable CLINICAL HISTORY: 58 years-old Male presenting with worsening resp status. TECHNIQUE: Portable upright AP view of the chest was obtained. COMPARISON: 05/19/2019. FINDINGS: Atherosclerosis of the aortic arch. Cardiac silhouette enlarged. Pulmonary vascular prominence stable to slightly worsened from prior. Perihilar opacities increased on the left and not significantly luis daniel nged on the right. Fluid noted in the right minor fissure. Persistent moderate left pleural effusion. No large pneumothorax. Osseous structures normal. Several external leads overlie the left hemithorax degrading evaluation. IMPRESSION: 1. Cardiomegaly with slight interval worsening of volume overload and moderate pulmonary edema. 2. Persistent moderate left pleural effusion. Electronically signed by: Zac Harper M.D. 05/21/2019 7:39 AM
--- NOTE | 2019-05-21 07:43 | Critical Care Progress Note ---
Date of Service May 21, 2019 Assessment & Plan (1) Acute respiratory failure: Neuro- awake alert ?confused. does not seem to understand the consequences of his eating and aspiration. morphine for agitation on bipap avoid benzos CV- HD stable now. septic shock resolved. CAD aspirin, ticagrelor, simvastatin Pulmonary- acute hypoxic respiratory failure now with new episode possible aspiration with LLL infiltrate or atelectasis. now reopened on repeat CXR. however still having episodes of respiratory distress which seem to be related to his aspiration and not to his subgottic stenosis. subglottic stenosis seems to have stridor when he is not calm. may need transfer for further evaluation by ENT. restart steroids. continue chest PT, flutter valve. bipap if needed ID- pneumonia again possibly recurrent aspiration vancomycin, piperacillin- tazobactam. previously with MRSA in bronch Renal- cr ok. GI- swallow eval Heme- leukocytosis worse. heparin proph Endocrine- blood sugars controlled Dispo- continue ICU care for respiratory support. I have personally spent 45 minutes of critical care time in the direct management of this patient. This is a life/limb threatening event. This includes time spent evaluating patient, direct bedside care, chart review, plac ing orders, interpretation of diagnostic studies, discussion with consultants, patient, and/or family members regarding treatment decisions, as well as other required patient management activities. This time is exclusive of all separately billable procedures, and teaching time and separate from and in addition to any other critical care service time. (2) Aspiration pneumonia: (3) Pneumonia of both lower lobes: (4) Septic shock: Subjective having episodes of shortness of breath and hypoxia Physical Exam Physical Exam: Constitutional: Comfortable NAD on facemask HEENT: normocephalic atraumatic. MMM. no cervical lymphadenopathy CV: RRR nl s1,s2 no murmurs rubs or gallops Lungs: bronchial breath sounds bilaterally. stridor when he is in distress and tachypneic. no accessory muscle use Abd: soft nontender nondistended. normal bowel sounds Ext: no edema. no cyanosis, no clubbing Skin: warm dry Neuro: awake but confused. hard to understand Psych: flat affect Results & Data Vital Signs (Past 12 Hours) Vital Signs Temp Pulse Pulse Pulse Resp BP Pulse Ox 05/21/19 07:06 93 H 28 H 98 05/21/19 07:04 93 H 28 H 98 05/21/19 06:03 95 H 16 99 05/21/19 05:10 36.6 C 95 H 21 100 05/21/19 05:01 91 H 23 128/79 100 05/21/19 05:00 91 H 23 100 05/21/19 04:50 90 19 100 05/21/19 04:40 97 H 22 99 05/21/19 04:30 95 H 28 H 94 05/21/19 04:20 93 H 25 H 95 05/21/19 04:10 92 H 29 H 97 05/21/19 04:00 94 H 28 H 152/85 H 98 05/21/19 03:50 94 H 20 99 05/21/19 03:40 106 H 29 H 98 05/21/19 03:30 91 H 26 H 97 05/21/19 03:20 94 H 23 97 05/21/19 03:10 102 H 25 H 91 05/21/19 03:00 89 18 127/63 99 05/21/19 02:50 89 18 98 05/21/19 02:40 89 18 98 05/21/19 02:30 94 H 20 95 05/21/19 02:22 91 H 20 99 05/21/19 02:21 96 H 20 99 05/21/19 02:20 91 H 18 100 05/21/19 02:10 91 H 18 99 05/21/19 02:00 93 H 18 116/65 100 05/21/19 01:50 93 H 18 100 05/21/19 01:40 94 H 18 100 05/21/19 01:30 94 H 18 100 05/21/19 01:20 95 H 19 99 05/21/19 01:10 94 H 18 100 05/21/19 01:00 95 H 18 119/66 100 05/21/19 00:50 96 H 19 100 05/21/19 00:40 93 H 14 100 05/21/19 00:30 89 21 100 05/21/19 00:20 96 H 18 100 05/21/19 00:10 97 H 18 100 05/21/19 00:00 36.7 C 98 H 20 107/66 100 05/20/19 23:50 98 H 20 99 05/20/19 23:40 100 H 19 98 05/20/19 23:30 101 H 20 99 05/20/19 23:20 101 H 24 99 05/20/19 23:13 110 H 36 H 91 05/20/19 23:11 110 H 36 H 91 05/20/19 23:10 102 H 21 98 05/20/19 23:00 104 H 22 124/78 97 05/20/19 22:50 106 H 22 96 05/20/19 22:40 107 H 23 94 05/20/19 22:30 111 H 25 H 93 05/20/19 22:20 112 H 29 H 89 L 05/20/19 22:10 112 H 34 H 92 05/20/19 22:01 112 H 29 H 176/108 H 96 05/20/19 22:00 113 H 33 H 96 05/20/19 21:50 105 H 23 05/20/19 21:40 99 H 21 05/20/19 21:30 111 H 30 H 83 L 05/20/19 21:20 99 H 19 84 L 05/20/19 21:10 92 H 17 80 L 05/20/19 21:00 97 H 24 152/87 H 89 L 05/20/19 20:50 93 H 25 H 94 05/20/19 20:40 92 H 29 H 94 05/20/19 20:30 94 H 29 H 96 05/20/19 20:20 94 H 26 H 95 05/20/19 20:10 92 H 27 H 95 05/20/19 20:00 36.8 C 96 H 27 H 156/82 H 87 L 05/20/19 19:50 94 H 29 H 93 05/20/19 19:42 93 H 28 H 92 05/20/19 19:40 93 H 95 H 25 H 84 L Laboratory Results Laboratory Results - last 24 hr 05/20/19 05/20/19 05/20/19 07:32 11:39 11:40 WBC RBC Hgb Hct MCV MCH MCHC RDW Std Deviation RDW Coeff of Jennifer Plt Count MPV Immature Gran % (Auto) Neut % (Auto) Lymph % (Auto) [place] % (Auto) Eos % (Auto) Baso % (Auto) Immature Gran # (Auto) Neut # (Auto) Lymph # (Auto) [place] # (Auto) Eos # (Auto) Baso # (Auto) Hypochromasia Sodium Potassium Chloride Carbon Dioxide Anion Gap BUN Creatinine Est Cr Clr Drug Dosing Est GFR ( Amer) Est GFR (Non-Af Amer) BUN/Creatinine Ratio Glucose POC Glucose 87 60 L* 63 L* Calcium Procalcitonin Vancomycin Trough 05/20/19 05/20/19 05/20/19 12:02 12:03 12:24 WBC RBC Hgb Hct MCV MCH MCHC RDW Std Deviation RDW Coeff of Jennifer Plt Count MPV Immature Gran % (Auto) Neut % (Auto) Lymph % (Auto) [place] % (Auto) Eos % (Auto) Baso % (Auto) Immature Gran # (Auto) Neut # (Auto) Lymph # (Auto) [place] # (Auto) Eos # (Auto) Baso # (Auto) Hypochromasia Sodium Potassium Chloride Carbon Dioxide Anion Gap BUN Creatinine Est Cr Clr Drug Dosing Est GFR ( Amer) Est GFR (Non-Af Amer) BUN/Creatinine Ratio Glucose POC Glucose 64 L* 61 L* 141 H Calcium Procalcitonin Vancomycin Trough 05/20/19 05/21/19 05/21/19 16:30 04:14 04:14 WBC 36.95 H* RBC 4.48 L Hgb 10.6 L Hct 34.6 L MCV 77.2 L MCH 23.7 L MCHC 30.6 L RDW Std Deviation 54.0 H RDW Coeff of Jennifer 19.4 H Plt Count 340 MPV 10.0 Immature Gran % (Auto) 3.9 Neut % (Auto) 83.7 Lymph % (Auto) 4.8 [place] % (Auto) 6.0 Eos % (Auto) 1.4 Baso % (Auto) 0.2 Immature Gran # (Auto) 1.44 H Neut # (Auto) 30.94 H Lymph # (Auto) 1.78 [place] # (Auto) 2.20 H Eos # (Auto) 0.52 H Baso # (Auto) 0.07 Hypochromasia Present Sodium 137 Potassium 4.2 Chloride 104 Carbon Dioxide 27 Anion Gap 6.0 BUN 10 Creatinine 0.40 L Est Cr Clr Drug Dosing 217.0 Est GFR ( Amer) > 150.0 Est GFR (Non-Af Amer) 131.9 BUN/Creatinine Ratio 25.6 H Glucose 98 POC Glucose 113 H Calcium 8.7 Procalcitonin Vancomycin Trough 05/21/19 05/21/1919 04:14 05:28 07:26 WBC RBC Hgb Hct MCV MCH MCHC RDW Std Deviation RDW Coeff of Jennifer Plt Count MPV Immature Gran % (Auto) Neut % (Auto) Lymph % (Auto) [place] % (Auto) Eos % (Auto) Baso % (Auto) Immature Gran # (Auto) Neut # (Auto) Lymph # (Auto) [place] # (Auto) Eos # (Auto) Baso # (Auto) Hypochromasia Sodium Potassium Chloride Carbon Dioxide Anion Gap BUN Creatinine Est Cr Clr Drug Dosing Est GFR ( Amer) Est GFR (Non-Af Amer) BUN/Creatinine Ratio Glucose POC Glucose 87 Calcium Procalcitonin 0.31 Vancomycin Trough 20.1 PG Care Time/CCT Critical Care Time: Yes Total Critical Care Time: 45
[2019-05-21] MEDS: methylPREDNISolone 40 MG in SYRINGE 0 ML IV SCH ×2 (09:13→20:23)
--- NOTE | 2019-05-21 09:44 | Pharmacy Report ---
Pharm Abx/Gly Prg Nt - Date of Service May 21, 2019 - Scope Pharmacy has been consulted to manage [antibiotic dosing therapy] and glycemic control for this patient as per the Pharmacy & Therapeutics Committee approved dosing protocols. - Objective Vital Signs (Past 12hrs): Vital Signs Temp Pulse Pulse Pulse Resp BP Pulse Ox 05/21/19 08:30 97 H 33 H 100 05/21/19 08:00 36.8 C 95 H 23 145/80 H 100 05/21/19 07:35 93 H 19 153/83 H 99 05/21/19 07:30 97 H 31 H 97 05/21/19 07:06 93 H 28 H 98 05/21/19 07:04 93 H 28 H 98 05/21/19 07:01 95 H 32 H 147/129 H 97 05/21/19 07:00 90 25 H 100 05/21/19 06:03 95 H 16 99 05/21/19 05:10 36.6 C 95 H 21 100 05/21/19 05:01 91 H 23 128/79 100 05/21/19 05:00 91 H 23 100 05/21/19 04:50 90 19 100 05/21/19 04:40 97 H 22 99 05/21/19 04:30 95 H 28 H 94 05/21/19 04:20 93 H 25 H 95 05/21/19 04:10 92 H 29 H 97 05/21/19 04:00 94 H 28 H 152/85 H 98 05/21/19 03:50 94 H 20 99 05/21/19 03:40 106 H 29 H 98 05/21/19 03:30 91 H 26 H 97 05/21/19 03:20 94 H 23 97 05/21/19 03:10 102 H 25 H 91 05/21/19 03:00 89 18 127/63 99 05/21/19 02:50 89 18 98 05/21/19 02:40 89 18 98 05/21/19 02:30 94 H 20 95 05/21/19 02:22 91 H 20 99 05/21/19 02:21 96 H 20 99 05/21/19 02:20 91 H 18 100 05/21/19 02:10 91 H 18 99 05/21/19 02:00 93 H 18 116/65 100 05/21/19 01:50 93 H 18 100 05/21/19 01:40 94 H 18 100 05/21/19 01:30 94 H 18 100 05/21/19 01:20 95 H 19 99 05/21/19 01:10 94 H 18 100 05/21/19 01:00 95 H 18 119/66 100 05/21/19 00:50 96 H 19 100 05/21/19 00:40 93 H 14 100 05/21/19 00:30 89 21 100 05/21/19 00:20 96 H 18 100 05/21/19 00:10 97 H 18 100 05/21/19 00:00 36.7 C 98 H 20 107/66 100 05/20/19 23:50 98 H 20 99 05/20/19 23:40 100 H 19 98 05/20/19 23:30 101 H 20 99 05/20/19 23:20 101 H 24 99 05/20/19 23:13 110 H 36 H 91 05/20/19 23:11 110 H 36 H 91 05/20/19 23:10 102 H 21 98 05/20/19 23:00 104 H 22 124/78 97 05/20/19 22:50 106 H 22 96 05/20/19 22:40 107 H 23 94 05/20/19 22:30 111 H 25 H 93 05/20/19 22:20 112 H 29 H 89 L 05/20/19 22:10 112 H 34 H 92 05/20/19 22:01 112 H 29 H 176/108 H 96 05/20/19 22:00 113 H 33 H 96 05/20/19 21:50 105 H 23 05/20/19 21:40 99 H 21 Lab Results: Laboratory Tests (24 Hours) 05/21/19 05/21/19 05/21/19 05:28 04:14 04:14 WBC Neut # (Auto) Creatinine 0.40 L Est Cr Clr Drug Dosing 217.0 Procalcitonin 0.31 Vancomycin Trough 20.1 05/21/19 04:14 WBC 36.95 H* Neut # (Auto) 30.94 H Creatinine Est Cr Clr Drug Dosing Procalcitonin Vancomycin Trough Micro Results: 05/11/19 22:47 Aerobic Blood Culture - Final Blood No growth in Aerobic bottle after 5 days. Anaerobic Blood Culture - Final 05/11/19 22:34 Aerobic Blood Culture - Final Blood No growth in Aerobic bottle after 5 days. Anaerobic Blood Culture - Final No growth in Anaerobic bottle after 5 days. 05/13/19 08:30 Gram Stain - Final Bronch Wash,Right Lower Lobe Bronchoalveolar Lavage Culture - Final Staph aureus MRSA 05/11/19 22:30 Urine Culture - Final Urine,Random No growth - less than 1,000 colonies/mL. 05/12/19 11:30 Gram Stain - Final Sputum,Trach Sputum Culture - Final Staph aureus MRSA Accuchecks BSG (last 24 hours):: 05/20/19 05/20/19 05/20/19 11:39 11:40 12:02 Glucose POC Glucose 60 L* 63 L* 64 L* 05/20/19 05/20/19 05/20/19 12:03 12:24 16:30 Glucose POC Glucose 61 L* 141 H 113 H 05/21/19 05/21/19 04:14 07:26 Glucose 98 POC Glucose 87 - Outpatient Anti-Diabetic Regimen Recent Pertinent Medications: Outpatient Anti-diabetic Regimen: * none The patient is currently receiving: * Basal insulin: none * Correctional Insulin: Novolog Correction per scale ACHS Goal Range: Low 140 mg/dL - High 180 mg/dL Correction Factor: 25 mg/dL/unit * Prandial insulin: none Risk Factors for Insulin Resistance: * Steroids: solumedrol 40mg q12 starting today * Infection:MRSA pneumonia - Assessment & Plan Assessment: ID: * 58 year old M receiving vancomycin/zosyn for treatment of pneumonia * Day # 3 of antimicrobial therapy * Trough level today increased, indicating likely accumulation. Will slightly reduce dose, but continue with current frequency Glycemic: * Patient requiring no insulin the past few days. Currently only correctional insulin ordered with a conservative goal range. IV steroids were restarted today. Will tighten novolog coverage if necessary. However, patient continues to be NPO and I do not anticipate any significant episodes of hyperglycemia. Plan: ANTIMICROBIAL THERAPY Vancomycin * Trough level of 20.1 mcg/mL is slightly supratherapeutic * Change to 1000 mg IV every 6 hours * Goal trough level: 15 to 20 mcg/mL * Trough level ordered for: 05/22/19 @0530 INPATIENT GLYCEMIC CONTROL Bolus Insulin * NovoLog per scale ACHS or Q6hrs while NPO * Goal Range: Low 140 mg/dL - High 180 mg/dL * Correction Factor: 25 mg/dL/unit * Nutritional / Prandial insulin: not required at this time * Please note that the plan above was derived based on current level of insulin resistance and hospital stress. These recommendations are appropriate for inpatient admission only. Plan of care upon discharge will need to be reassessed to avoid potential outpatient hypo/hyperglycemia. Pharmacy will follow patient and adjust orders on a daily basis. Thank you for allowing us to participate in this patients care.
[2019-05-21] MEDS: VANCOMYCIN HCL 1,000 MG in SODIUM CHLORIDE 0.9% 250 ML IV SCH ×3 (11:42→23:48)
--- NOTE | 2019-05-21 13:44 | Fluoroscopy Report ---
FL video swallow HISTORY: r/o aspiration TECHNIQUE: Video fluoroscopic evaluation of swallowing was performed in the AP and lateral projection s by the speech pathology staff. The patient is fed nectar-thick and thin liquid barium, a barium coa lissa wafer, and barium pudding. FLUOROSCOPY TIME: 1 minute. A cine loop submitted. COMPARISON STUDY: None. FINDINGS: There is normal hyoid excursion and epiglottic deflection. No significant penetration or as piration identified. Swallowing function is within normal limits. IMPRESSION: 1. No aspiration identified. 2. Please see the speech pathologist report for detailed findings and recommendations. Electronically signed by: Juancarlos Vela M.D. 05/21/2019 1:43 PM
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
[2019-05-21] MEDS: SIMVASTATIN 40 MG TAB PO SCH (20:22)
[2019-05-22] MEDS: ALBUT/IPRATROP 3MG/0.5MG NEB 3 ML VIAL NEB PRN (01:58)
[2019-05-22] MEDS: ALBUTEROL 0.5% NEB SOLN 2.5 MG/0.5 ML VIAL NEB SCH ×2 (01:58→07:25)
[2019-05-22] MEDS: PIPERACILLIN/TAZOBACTAM 3.375 GM in DEXTROSE 5% 100 ML IV SCH ×2 (04:34→12:16)
[2019-05-22] MEDS ORDERED: VANCOMYCIN TROUGH ONE (05:30)
[2019-05-22 06:11] LABS: Hematocrit (blood only) 35.2 % (42-52); Hemoglobin 10.7 g/dL (14.0-18.0); Mean Corpuscular Hgb Conc 30.4 g/dL (32-36); Mean Corpuscular Volume 75.7 fL (80-100); Mean Platelet Volume 10.2 fL (7.4-10.4); Platelet Count 361 K/uL (130-400); RDW Coefficient of Variation 19.4 % (11.5-14.5); RDW Standard Deviation 52.9 fL (36.4-46.3); Red Blood Count 4.65 M/uL (4.7-6.1); White Blood Count 43.57 K/uL (4.8-10.8)
[2019-05-22 06:20] LABS: BUN Creatinine Ratio 24.2 (10-20); Calcium 8.9 mg/dl (8.5-10.1); Creatinine Clr Calc Pharmacy 170.2 ml/min; Est GFR (African American) 138.3; Est GFR (Non-African American) 119.3; Magnesium 2.4 mg/dl (1.8-2.4); Potassium 4.8 mmol/L (3.5-5.1)
[2019-05-22] MEDS: HEPARIN SOD 5,000 UNIT/0.5 ML VIAL SQ SCH ×2 (06:23→14:55)
[2019-05-22] MEDS: VANCOMYCIN HCL 1,000 MG in SODIUM CHLORIDE 0.9% 250 ML IV SCH ×2 (06:23→12:16)
[2019-05-22] MEDS: FERROUS SULFATE 325 MG TAB PO SCH (07:47)
[2019-05-22] MEDS: INSULIN ASPART 100 UNITS/ML 3 ML PEN SC SCH (07:47)
[2019-05-22] MEDS: methylPREDNISolone 40 MG in SYRINGE 0 ML IV SCH (07:47)
[2019-05-22] MEDS: FOLIC ACID 1 MG TAB PO SCH (07:48)
[2019-05-22] MEDS: TICAGRELOR 90 MG TAB PO SCH (07:48)
[2019-05-22] MEDS: ASPIRIN 81 MG ECTAB PO SCH (07:48)
[2019-05-22] MEDS: POTASSIUM CHLORIDE PWD 20 MEQ PACK PO SCH (07:48)
[2019-05-22] MEDS: ASCORBIC ACID 500 MG TAB PO SCH (07:49)
[2019-05-22] MEDS: GABAPENTIN 800 MG TAB PO SCH (07:49)
[2019-05-22] MEDS: THIAMINE HCL 100 MG TAB PO SCH (07:49)
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
[2019-05-22] MEDS: MoRPHine SULFATE 2 MG/ML CARP IV PRN ×2 (10:00→10:16)
--- NOTE | 2019-05-22 10:10 | XRay Report ---
SINGLE VIEW CHEST CLINICAL HISTORY: Respiratory distress. FINDINGS: An AP, portable, upright chest radiograph is compared to study dated 05/21/2019 and correlate d with chest CT dated 05/12/2019. The examination is degraded by portable technique and patient rotati on. The heart is enlarged and there is atherosclerotic calcification of the thoracic aorta. There i s pulmonary vascular congestion. There is airspace consolidation identified in the right upper lobe a nd the left lung base. There are small pleural effusions, left larger than right. No pneumothorax is seen. The skeletal structures are osteopenic. The bony thorax is grossly intact. IMPRESSION: 1. Cardiomegaly with evidence of congestive failure. 2. There is asymmetric airspace consolidation, greatest in the right upper and left lower lobes. This could represents pulmonary edema and/or superimposed pneumonia. Clinical correlation will be require d and radiographic follow-up to resolution is recommended. 3. Left larger than right pleural effusions. Electronically signed by: David Olivas M.D. 05/22/2019 10:09 AM
[2019-05-22] MEDS ORDERED: RAPID SEQUENCE INDUCTION BAG ONE (10:14)
--- NOTE | 2019-05-22 10:28 | Pharmacy Report ---
Pharmacy Abx Dose Short Note - Date of Service May 22, 2019 - Assessment & Plan Assessment 58 year old M receiving VANCOMYCIN/zosyn for treatment of pulmonary infection Day # 4 of antimicrobial therapy (previously on vanc 05/12-05/17) Plan Vancomycin * Trough level of 19.8 mcg/mL is therapeutic. * Continue dose of 1000 mg IV every g hours * Goal trough level : 15 to 20 mcg/mL * Trough or random level ordered for: 05/24/19 @[id number] Pharmacy will continue to follow and will adjust dose/frequency as necessary. Thank you.
[2019-05-22] MEDS ORDERED: DEXMEDETOMIDINE HCL 200 MCG in SODIUM CHLORIDE 0.9% 48 ML IV STA (10:34)
[2019-05-22] MEDS ORDERED: GLYCOPYRROLATE 0.2 MG/ML VIAL IV PRN (10:46)
[2019-05-22] MEDS ORDERED: GLYCOPYRROLATE 0.2 MG/ML VIAL ONE (10:49)
[2019-05-22] MEDS ORDERED: INSULIN ASPART 100 UNITS/ML 3 ML PEN SC SCH ×2 (11:30→18:00)
[2019-05-22] MEDS ORDERED: PROPOFOL 1,000 MG/100 ML VIAL IV SCH (11:30)
[2019-05-22] MEDS ORDERED: SODIUM BICARB 8.4% INJ 50 MEQ/50 ML SYR ONE (11:38)
[2019-05-22] MEDS ORDERED: NOREPINEPHRINE BIT INJ 8 MG in DEXTROSE 5% 500 ML IV SCH (11:50)
[2019-05-22 12:53] LABS: iSTAT Arterial Blood Gas HCO3 36 meg/L (19-24); iSTAT Arterial Blood Gas pCO2 > 115 mmHg (35-46); iSTAT Arterial Blood Gas pH 7.06 (7.35-7.45); iSTAT Carbon Dioxide > 40 mEq/l (24-31); iSTAT Hematocrit 34 % (42-52); iSTAT Hemoglobin 11.6 g/dl (14.0-18.0); iSTAT Potassium 5.1 mEq/L (3.3-5.0); iSTAT Site R Radial; iSTAT Sodium 150 mEq/L (135-144)
--- NOTE | 2019-05-22 13:14 | Procedure Note ---
Procedure Note Date of Service May 22, 2019 Procedure date: Noted above Procedure: Central venous access Pre-procedure indication: Status post CODE BLUE, need for vasoactive medication administration Post-procedure Diagnosis: same as above Prior to Procedure: Informed Consent: The risks, benefits, indications, potential complications, and alternatives were not explained to the patient and emergent consent was implied. Attending Staff: Mallory Barboza DO Resident/APC: Edinson Skin Prep: Chlorhexidine Anesthesia: 4 mL 1% lidocaine without epinephrine The identity of the patient was confirmed and a bedside time out was performed. Description of Procedure: After sterile prep and sterile drape utilizing standard sterile technique the superficial skin of the left internal jugular area was anesthetized. The target vessel was identified and entered with an 18- gauge needle. Dark venous blood return was noted. A guidewire was inserted through the needle and into the vessel. The needle was withdrawn and a skin marilee was made. A tissue dilator was advanced via Seldinger technique and removed. A triple lumen catheter was inserted via Seldinger technique and the guidewire removed. All ports jake and flushed easily. A Biopatch was placed, and the catheter was secured via silk suture. A sterile dressing was then applied. Complications: None Estimated blood loss: Trace Patient tolerated the procedure well. Procedure Date: Noted Above Procedure: Procedural Ultrasound Indication: Central venous access Attending: Mallory Barboza DO Resident/Physician Systems Accountant: Edinson Artery visualized: Yes Vein visualized: Yes Compressible Vein: Yes Vein patent: Yes Guidewire or Short Catheter seen in vein prior to dilation: Yes Line confirmed in Vein with ultrasound: Yes Lung Sliding on side of attempt (if applicable): NA If no lung sliding or not obtained has CXR been ordered: Yes Impression: Successful central venous access placement Images obtained are saved for permanent record Coding CPT Codes Tubes, Drains, and Vasc Access - Tubes, Drains, and Vasc Access: Insertion Of Non-tunneled Catheter Age 5 Yrs> ([id number]) Tubes, Drains, and Vasc Access - Tubes, Drains, and Vasc Access: Ultrasound Guidance For Vascular ([id number])
--- NOTE | 2019-05-22 13:15 | Procedure Note ---
Procedure Note Date of Service May 22, 2019 Procedure date: Noted above Procedure: Left radial artery cannulation Pre-procedure Diagnosis: Need for invasive monitoring, hypotension/frequent blood draws Post-procedure Diagnosis: same as above Prior to Procedure: Informed Consent: The risks, benefits, indications, potential complications, and alternatives were not explained to the patient and emergent consent implied Attending Staff: Mallory Barboza DO Skin Prep: Chlorhexidine Anesthesia: 3 mL 1% lidocaine without epinephrine The identity of the patient was confirmed and a bedside time out was performed. Description of Procedure: After sterile prep and sterile drape utilizing standard sterile technique the superficial skin of the left radial artery was anesthetized. The target artery was identified via dynamic ultrasound guidance and entered with a 20-gauge arrow Angiocath. Pulsatile bright red blood return was noted. Via modified Seldinger technique the self-contained guidewire was advanced and the Angiocath advanced over the guidewire. The guidewire was removed and brisk arterial blood return was noted. The pressure monitor was connected, and the arterial line was secured via commercial securement device. A sterile dressing was then applied. Complications: None Estimated blood loss: Trace Patient tolerated the procedure well. Procedure Date: May 22, 2019 Procedure: Procedural Ultrasound Indication: Arterial access for invasive monitoring Attending: Mallory Barboza DO Artery visualized: Yes Pulsatility of artery: Yes Artery patent: Yes Line confirmed in artery with ultrasound: Yes Impression: Successful arterial cannulation Images obtained are saved for permanent record Coding CPT Codes Tubes, Drains, and Vasc Access - Tubes, Drains, and Vasc Access: Insertion Catheter, Artery ([id number]) Tubes, Drains, and Vasc Access - Tubes, Drains, and Vasc Access: Ultrasound Guidance For Vascular ([id number])
--- NOTE | 2019-05-22 13:20 | Procedure Note ---
Procedure Note Date of Service May 22, 2019 Procedure Date: Noted above Procedure: Endotracheal intubation Pre-procedure Diagnosis: Severe airway obstruction, inability to clear secretions, subglottic stenosis Post-procedure Diagnosis: same as above Prior to Procedure: Informed Consent: Risks and benefits were discussed with the patient as well as indication. Informed consent was obtained Attending Staff: Mallory Barboza DO The identity of the patient was confirmed and a bedside time out was performed. Description of Procedure: Patient was evaluated and required intubation for impending respiratory failure. The patient was prepared with glycopyrrolate as well as opiate analgesic. Utilizing 50 mg of ketamine x2, I was able to pass the glide scope and achieve a grade 1 view. A 7 mm inner diameter endotrachial tube was easily passed through the vocal cords and easily entered the trachea and placed endotracheally to 25 cm at the teeth. Chest rise was bilateral. Bilateral breath sounds were heard without air sounds in the abdomen. Mist was noted in the endotracheal tube. End-tidal CO2 measurement was positive. Patient was spontaneously breathing through the endotracheal tube. Complications: Patient's later occluded his airway with copious tenacious secretions. Please see code note for further details. Findings: Not applicable Specimens: Not applicable Estimated blood loss: Zero Coding CPT Codes Resuscitation - Resuscitation: Endotracheal Intubation, emergency ([id number])
--- NOTE | 2019-05-22 13:30 | Procedure Note ---
Procedure Note Date of Service May 22, 2019 Procedure Date: Noted above Procedure: Cardiopulmonary resuscitation Pre-procedure Diagnosis: Hypoxic arrest leading to cardiac arrest Post-procedure Diagnosis: same as above with acute airway obstruction Attending Staff: Mallory Barboza DO Description of Procedure: Patient was noted to have it becoming difficult to bag, and we transitioned quickly to a bronchoscopy to remove any airway obstruction. Patient's clinical course continued to climb he became bradycardic and ultimately led to a cardiac arrest. He was asystolic initially and received epinephrine. Please see the code flowsheet for more complete details. With the video bronchoscope I was able to visualize tracheal rings however there was significant tenacious copious secretions that occluded the main bronchus. Multiple attempts were made to clear the secretions. To ensure we were past the subglottic stenosis, the endotracheal tube was advanced to its most advanced position. Patient remained difficult to bag. During chest compressions I would intermittently see tracheal rings confirming I was in fact in the airway. The secretions were so thick they were not able to be suctioned through the working channel. I would suction what I could into the channel remove the bronchoscope and needed to physically push the concretions out of the working channel multiple times. Eventually I took a red rubber catheter attempted to suction what I could out of the endotracheal tube this was essentially ineffective as well. We eventually got a larger bronchoscope and proceeded with multiple passes into the main airways and could only suction small amounts into the working channel again being unable to completely evacuate the secretions/concretions through the working channel. 1 attempt that was minimally/marginally effective was taking a 6.0 inner diameter endotracheal tube, removing the connector placing the suction on the end of the endotracheal tube, passing the endotracheal tube down the 7.0 inner diameter endotracheal tube and secretions were suctioned out. The patient would intermittently bag a little bit easier however he would throw another concretion which acted like a ball valve. The cardiac arrest started at 1112, a spontaneous pulse was finally achieved at 1141, at approximately 1143 I was finally able to visualize the lynne, the patient was easier to bag and we stopped additional suctioning of secretions in attempt to further ventilate the patient. Initial labs during resuscitation d emonstrated cardiac hypoxic respiratory failure and profound metabolic and respiratory acidosis. Total CPR time was 33 minutes. A repeat bronchoscopy was planned to be performed after further stabilization. Coding CPT Codes Resuscitation - Resuscitation: Heart/lung resuscitation CPR ([id number])
--- NOTE | 2019-05-22 13:32 | Procedure Note ---
Procedure Note: Bronchoscopy Procedure Procedure date: May 22, 2019 Procedure: fiberoptic bronchoscopy Pre-procedure indication: Subglottic stenosis, pulmonary infiltrate, inability to clear secretions Post-procedure Diagnosis: same as above Prior to Procedure: Informed Consent: The risks, benefits, indications, potential complications, and alternatives were explained to the patient and informed consent obtained. Attending Staff: Mallory Barboza DO Resident/APC: Edinson Skin Prep: Not applicable Anesthesia: Continuous infusion The identity of the patient was confirmed and a bedside time out was performed. Description of Procedure: Fiberoptic bronchoscopy was performed via endotracheal tube. Bronchioalveolar lavage of all bronchi was performed. Findings included: Thick copious tenacious secretions occluding the trachea, right and left bronchi, right upper lobe, right middle lobe, right lower lobe, left lower lobes and left upper lobes. Pictures were obtained to demonstrate the type and amount of secretions which required suctioning. These pictures are included in the medical record. Ultimately a final BAL was obtained from the right middle lobe. Complications: See CPR note Specimens: Bronchial washings sent for culture and Gram stain, cytology, fungal elements, and AFB stain and culture. Estimated blood loss: Zero
--- NOTE | 2019-05-22 13:44 | XRay Report ---
XR chest 1V portable CLINICAL HISTORY: Line placement. COMPARISON STUDY: Chest radiograph May 22, 2019 8:54 AM. FINDINGS: The tip of the endotracheal tube is 5.3 cm above the lynne. Tip of left internal jugular c entral line projects over the distal left brachiocephalic vein. There is no pneumothorax. There are s mall bilateral pleural effusions. Left lower lung aeration has improved. Right midlung airspace opaci ty has increased. Cardiomediastinal silhouette is stable. There is no evidence for pulmonary edema. IMPRESSION: 1. Tip of endotracheal tube 5.3 cm above the lynne. 2. Tip of left internal jugular central line projects over the distal left brachiocephalic vein. No p neumothorax. 3. Increase in right midlung opacity which favors pneumonia. 4. Interval improvement in left lower lung aeration. Electronically signed by: Andrew Jameson M.D. 05/22/2019 1:43 PM
[2019-05-22] MEDS ORDERED: ALBUTEROL 0.083% NEBU SOLN 3 ML VIAL INH SCH (14:00)
[2019-05-22 14:24] LABS: Hematocrit (blood only) 31.4 % (42-52); Hemoglobin 9.7 g/dL (14.0-18.0); Mean Corpuscular Hgb Conc 30.9 g/dL (32-36); Mean Corpuscular Volume 75.5 fL (80-100); Platelet Count 437 K/uL (130-400); RDW Coefficient of Variation 19.5 % (11.5-14.5); RDW Standard Deviation 53.1 fL (36.4-46.3); Red Blood Count 4.16 M/uL (4.7-6.1)
[2019-05-22 14:36] LABS: iSTAT Arterial Blood Gas HCO3 48 meg/L (19-24); iSTAT Arterial Blood Gas pCO2 73 mmHg (35-46); iSTAT Arterial Blood Gas pH 7.43 (7.35-7.45); iSTAT Carbon Dioxide < 5 mEq/l (24-31); iSTAT FiO2 40 %; iSTAT Site Art Line
[2019-05-22 14:45] LABS: Alanine Aminotransferase 75 U/L (12-78); Albumin Globulin Ratio 0.4 (0.9-2); Alkaline Phosphatase 156 U/L (45-117); BUN Creatinine Ratio 22.4 (10-20); Bilirubin,Total 0.8 mg/dl (0.2-1); Blood Urea Nitrogen 16 mg/dl (7-18); Calcium 8.5 mg/dl (8.5-10.1); Carbon Dioxide 39 mmol/L (21-32); Chloride 103 mmol/L (98-107); Est GFR (African American) 121.4; Est GFR (Non-African American) 104.8; Globulin 4.9 gm/dl (2.5-4.0); Glucose 235 mg/dl (70-99); Sodium 148 mmol/L (136-145); Total Protein 6.9 gm/dl (6.4-8.2)
[2019-05-22 14:47] LABS: Basophils # (auto) 0.09 K/uL (0-0.2); Basophils % (auto) 0.1 %; Hypochromasia Present; Immature Granulocytes # (auto) 1.72 K/uL (0.00-0.02); Immature Granulocytes % (auto) 2.7 %; Lymphocytes # (auto) 1.84 K/uL (1.2-3.4); Lymphocytes % (auto) 2.8 %; Microcytosis Present; Monocytes # (auto) 1.49 K/uL (0.11-0.59); Monocytes % (auto) 2.3 %; Neutrophils # (auto) 59.56 K/uL (1.4-6.5); Neutrophils % (auto) 92.1 %; Toxic Vacuolation 1+
[2019-05-22] MEDS ORDERED: NORMOSOL-R 1,000 ML IV SCH (15:00)
[2019-05-22 15:05] LABS: INR 1.3 (0.9-1.1); Partial Thromboplastin Time 27.9 Seconds (21.0-31.0); Prothrombin Time 12.8 Seconds (9.0-12.0)
--- NOTE | 2019-05-22 15:30 | Procedure Note ---
Procedure Note Date of Service May 22, 2019 Procedure date: Noted above Procedure: Central venous access:Quattrro catheter Pre-procedure indication: Therapeutic hypothermia Post-procedure Diagnosis: same as above Prior to Procedure: Informed Consent: Emergent consent implied Attending Staff: Mallory Barboza DO Resident/APC: Edinson Skin Prep: Chlorhexidine Anesthesia: 4 mL 1% lidocaine without epinephrine The identity of the patient was confirmed and a bedside time out was performed. Description of Procedure: After sterile prep and sterile drape utilizing standard sterile technique the superficial skin of the right femoral area was anesthetized. The target vessel was identified and entered with an 18-gauge needle. Dark venous blood return was noted. A guidewire was inserted through the needle and into the vessel. The needle was withdrawn and a skin marilee was made. A tissue dilator was advanced via Seldinger technique and removed. A 4 lumen catheter was inserted via Seldinger technique and the guidewire removed. All ports jake and flushed easily. A Biopatch was placed, and the catheter was secured via silk suture. A sterile dressing was then applied. Complications: None Estimated blood loss: Trace Patient tolerated the procedure well. Coding
--- NOTE | 2019-05-22 15:51 | CT Scan Report ---
HEAD CT NONCONTRAST CT DOSE: 614.27 mGy.cm HISTORY: Altered mental status. TECHNIQUE: Multiaxial CT images of the head were performed without the use of intravenous contrast. A utomated exposure control was utilized for this study. A dose lowering technique was utilized adheri ng to the principles of ALARA. Comparison: None. Findings: The paranasal sinuses and mastoid air cells are clear. The calvarium and skull base are int act. There is no mass, hematoma, midline shift, acute infarct. White matter hypodensity is nonspecifi c but suggestive of microvascular ischemic change. The ventricles and sulci demonstrate mild age-rela lissa involutional changes. Old left MCA territory infarct. Impression: No acute intracranial abnormality. Atrophy and microvascular ischemic changes. Old left MCA territory infarct. Electronically signed by: Juancalros Vela M.D. 05/22/2019 3:49 PM
[2019-05-22] MEDS ORDERED: ATROPINE SULFATE 0.1 MG/ML 10ML SYR IV ONE (16:09)
[2019-05-22] MEDS ORDERED: SODIUM BICARB 8.4% INJ 50 MEQ/50 ML SYR IV ONE (16:09)
[2019-05-22] MEDS ORDERED: KETAMINE HCL INJ 50 MG/ML 10 ML VIAL IV ONE (16:09)
[2019-05-22] MEDS ORDERED: VECURONIUM BROMIDE 10 MG VIAL IV ONE (16:09)
[2019-05-22] MEDS ORDERED: fentaNYL citrate 100 MCG/2 ML CARP IV ONE (16:09)
[2019-05-22] MEDS ORDERED: SODIUM CHLORIDE 0.9% 10ML FLUSH IV ONE (16:09)
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
[2019-05-24] MEDS ORDERED: VANCOMYCIN TROUGH ONE (05:30)
[2019-05-24 11:56] LABS: iSTAT Arterial Blood Gas HCO3 36 meg/L (19-24); iSTAT Arterial Blood Gas pCO2 > 115 mmHg (35-46); iSTAT Arterial Blood Gas pH 7.06 (7.35-7.45); iSTAT Carbon Dioxide > 40 mEq/l (24-31); iSTAT Hematocrit 34 % (42-52); iSTAT Hemoglobin 11.6 g/dl (14.0-18.0); iSTAT Potassium 5.1 mEq/L (3.3-5.0); iSTAT Site R Radial; iSTAT Sodium 150 mEq/L (135-144)
[2019-05-29 11:17] LABS: iSTAT Arterial Blood Gas HCO3 36 meg/L (19-24); iSTAT Arterial Blood Gas pCO2 > 115 mmHg (35-46); iSTAT Arterial Blood Gas pH 7.06 (7.35-7.45); iSTAT Carbon Dioxide > 40 mEq/l (24-31); iSTAT Hematocrit 34 % (42-52); iSTAT Hemoglobin 11.6 g/dl (14.0-18.0); iSTAT Potassium 5.1 mEq/L (3.3-5.0); iSTAT Site R Radial; iSTAT Sodium 150 mEq/L (135-144)
== END 2019-05-22 16:10 | disposition short-term general hospital (02) | DRG 871 ==
LOC: 1E 20:00 → SUATTDRO 20:00 → 2S 05-14 15:38 → 4E 05-16 13:17 → 1E 05-19 04:48
DX: Z87.440 Personal history of urinary (tract) infections; G82.20 Paraplegia, unspecified; J96.01 Acute respiratory failure with hypoxia; K80.20 Calculus of gallbladder without cholecystitis without obstruction; F10.10 Alcohol abuse, uncomplicated; R06.1 Stridor; I48.91 Unspecified atrial fibrillation; N39.0 Urinary tract infection, site not specified; R49.0 Dysphonia; I46.9 Cardiac arrest, cause unspecified; R65.21 Severe sepsis with septic shock; Z99.3 Dependence on wheelchair; E87.2 Acidosis; Z86.73 Personal history of transient ischemic attack (TIA), and cerebral infarction without residual deficits; G89.29 Other chronic pain; J15.212 Pneumonia due to Methicillin resistant Staphylococcus aureus; A41.9 Sepsis, unspecified organism; I25.10 Atherosclerotic heart disease of native coronary artery without angina pectoris; G62.9 Polyneuropathy, unspecified; J69.0 Pneumonitis due to inhalation of food and vomit; J96.02 Acute respiratory failure with hypercapnia; F17.200 Nicotine dependence, unspecified, uncomplicated; J44.9 Chronic obstructive pulmonary disease, unspecified; J95.5 Postprocedural subglottic stenosis; I27.20 Pulmonary hypertension, unspecified